=== PATIENT | female | born 1995 | race African-American/Black ===

== ENCOUNTER → 2017-10-29 16:12 | Outpatient (CLI) | payer BC, SELFPAY | PROVIDERS: Family Provider Pediatrics; PCP Pediatrics; Visit Provider Otolaryngology | DX: J02.9 Acute pharyngitis, unspecified (principal) | CPT/HCPCS: 87070; 87077; 87186 ==

== ENCOUNTER → 2018-06-19 16:00 | Outpatient (CLI) | payer BC, SELFPAY | PROVIDERS: Family Provider Pediatrics; PCP Pediatrics; Referring Provider Otolaryngology; Visit Provider Otolaryngology | DX: J02.9 Acute pharyngitis, unspecified (principal) | CPT/HCPCS: 87070; 87077; 87186 ==

== ENCOUNTER 2018-07-06 20:16 | Emergency (ER) | payer BC, SELFPAY ==
[2018-07-06 20:17] VITALS: BP 137/73; PULSE 75; RESP 18; TEMP 36.6; O2SAT 100; BMI 20.7
[2018-07-06 20:30] VITALS: BP 134/74; PULSE 71; RESP 12; O2SAT 100
--- NOTE | 2018-07-06 20:30 | RAD_ITS ---
STUDY: X-RAY CHEST REASON FOR EXAM: Female, 22 years old. Chest pain TECHNIQUE: Frontal and lateral views of the chest were obtained. COMPARISON: August 17, 2017 FINDINGS: The lungs are adequately aerated. There are no focal airspace opacities. There is no demonstrated pleural abnormality. The cardiac silhouette is normal in size. The mediastinum and hilar regions are unremarkable. Normal visualized pulmonary arteries. Normal visualized aortic arch and descending thoracic aorta. There is dextroscoliosis of the mid thoracic spine. The visualized ribs, clavicles, and shoulders are unremarkable. There is no demonstrated abnormality of the visualized upper abdomen. RAD/Chest PA and Lateral IMPRESSION: No acute cardiopulmonary abnormalities. Electronically Signed: Judith Wayne MD at 22:48 EST Tel Direct: [phone], Service support ,
--- NOTE | 2018-07-06 20:30 | EKG12_ITS ---
Test Reason : CP Blood Pressure : / mmHG Vent. Rate : 073 BPM Atrial Rate : 073 BPM P-R Int : 170 ms QRS Dur : 082 ms QT Int : 390 ms P-R-T Axes : 060 071 034 degrees QTc Int : 429 ms Normal sinus rhythm Normal ECG Confirmed by HUONG HOLDER, JAJA ([id number]), editor farm journal MAGED QUEZADA ([id number] on 07/09/2018 2:54:59 PM Referred By: CARLTON Confirmed By:JAJA BORJA MD
--- NOTE | 2018-07-06 20:35 | ED.VISSUMM ---
- ER Visit Summary Date of Service: 07/06/18 Chief Complaint: Chest pain, shortness of breath History of Present Illness: The patient is a 22 F with sudden onset of chest pain shortness of breath possibly 30 minutes prior to arrival. She just finished dinner and sat on the sofa. She denies the pain feeling like prior reflux. Significant other reports pain was somewhat improved after Ativan and she was upset at the time. Past history is significant for cardiac murmur as a child. Physical Examination: Vital signs unremarkable. Patient sitting upright in bed no acute distress. Heart is regular rate and rhythm. Lung sounds are clear. Chest wall is nontender. Abdomen is soft and nontender. Neuro exam is unremarkable. Lower exam examination was no calf tenderness or edema. Test Results: EKG is sinus at [address] change. Two-view chest x-ray per my read is unremarkable. CBC and chemistry studies normal. Troponin negative. D-dimer negative. test negative. Emergency Department Course and Treatment: Patient was given IV fluids, small dose of morphine, and Zofran. On repeat evaluation patient states her pain had completely resolved and is now waxing and waning at a low level. I advised her that at this time I see no acute cardiac or pulmonary cause for her pain. This may be caused by anxiety or stress or even atypical reflux symptoms. She will continue to monitor her symptoms at home and return if symptoms worsen or any other concerns arise. Treatment Plan: [] Disposition: Discharge Impression: Atypical chest pain This note was generated with [employer] dictation software. It may contain incorrect words, spelling, and punctuation that were not noted in review of the chart prior to signing ED Disposition - Plan for ED Patient: Chief Complaint: Chest Pain Referrals: Nevaeh Dyson [NON-STAFF] -
[2018-07-06 20:41] LABS: Absolute Lymphocyte Count 2.61 X10^3/ul (0.83-4.51); Absolute Neutrophil Count 1.4 X10^3/uL (2.0-7.7); Basophil# 0.02 X10^3/uL; Basophil% 0.4 % (0-1); Eosinophil# 0.39 X10^3/uL; Eosinophils% 8.2 % (0-5); Hematocrit 40.2 % (37-47); Hemoglobin 13.4 g/dl (12.0-15.0); Lymphocyte # 2.61 X10^3/ul (4.0); Lymphocyte % 55.1 % (19-41); Mean Corp Hgb Conc 33.3 g/gl (32-36); Mean Corpuscular Hgb 29.5 pg (27.0-32.0); Mean Corpuscular Volume 88.4 fL (81-99); Mean Platelet Vol. 9.3 fl (6.2-12.0); Monocyte# 0.31 X10^3/uL; Monocyte% 6.5 % (0-10); Neutrophil % 29.6 % (47-70); POSITIVE COUNT NO; POSITIVE DIFFERENTIAL NO; POSITIVE MORPHOLOGY NO; Platelet Count 271 K/mm3 (150-450); RBC Distribution Width CV 13.6 % (11.6-14.6); RBC Distribution Width SD 44.1 fl (35.1-43.9); Red Blood Count 4.55 M/mm3 (4.2-5.4); White Blood Count 4.7 K/mm3 (4.4-11.0)
[2018-07-06] MEDS: Ondansetron 4 MG/2 ML Vial IV (20:42)
[2018-07-06] MEDS: 0.9% Normal Saline 1,000 ML 150 ML IV (20:43)
[2018-07-06] MEDS: Morphine 2 MG/ML Syringe IV (20:45)
[2018-07-06 20:50] LABS: Anion Gap 8 (5-15); BUN 15 mg/dL (7-18); BUN/Creat Ratio 14.4 RATIO (10-20); Calcium,Total 9.2 mg/dL (8.5-10.1); Chloride 104 mmol/L (98-107); Creatinine, Serum 1.04 mg/dL (0.55-1.02); EST Glomerular Filtration Rate 69 mL/min (>60); Est Glom Filt Rate - Afr Amer 83 mL/min (>60); Estimated Creatinine Clearance 86.61 ml/min; Glucose 144 mg/dL (74-106); Potassium 3.5 mmol/L (3.5-5.1); Sodium Level 139 mmol/L (136-145)
[2018-07-06 21:06] LABS: D-Dimer Quantitative (DVT/PE) < 0.27 FEU/ug/m (0.27-0.49)
[2018-07-06 21:12] LABS: Pregnancy, Serum, hCG Quali. NEGATIVE Negative (0-9 Nonpreg)
[2018-07-06 21:34] VITALS: BP 123/76; PULSE 69; RESP 17; O2SAT 99
--- NOTE | 2018-07-06 21:48 | ED.DEP ---
ED Disposition - Plan for ED Patient: Disposition: Home or Assisted Living Chief Complaint: Chest Pain Instructions: ED Chest Pain Atypical Unkn Cause Referrals: Nevaeh Dyson [NON-STAFF] - 3-5 Days if not improving
[2018-07-06 21:54] VITALS: BP 123/76; PULSE 72; RESP 19; O2SAT 97
--- OUTSIDE RECORDS SUMMARY | 2018-08-30 21:49 | XMS RPT_ITS ---
:1995 Author Organization OHIP Care Team Providers Name Role Phone EDMOND DYSON Primary Care Unavailable Jay More Attending Unavailable EDMOND DYSON Primary Care Unavailable Karen Araiza Attending Unavailable KARIS, EDMOND Primary Care Unavailable Christopher Johnson Attending Unavailable NorbertannFeliz Attending Unavailable KARIS, EDMOND Primary Care Unavailable Norbertann, Feliz Referring Unavailable Shane Paeze Attending Unavailable Norbertann, Feliz Referring Unavailable KARIS, EDMOND Primary Care Unavailable Judith See Attending Unavailable Ganta, Jaison Primary Care Unavailable AMPARO POND (BROACHING MACHINE SET UP OPERATOR) Attending Unavailable AMPARO POND (BROACHING MACHINE SET UP OPERATOR) Referring Unavailable BOLOGNA FRANKLYN A Admitting Unavailable BOLOGNA, FRANKLYN A Attending Unavailable AMPARO POND (BROACHING MACHINE SET UP OPERATOR) Attending Unavailable CARABALLO, BASILIA VARUN Referring Unavailable ALYSSA WEEMS (CHERELLE) Attending Unavailable CARABALLO, BASILIA VARUN Referring Unavailable ELISEO PEÑA (BROACHING MACHINE SET UP OPERATOR) Attending Unavailable ELISEO PEÑA (BROACHING MACHINE SET UP OPERATOR) Attending Unavailable MISTY DAILEY () Attending Unavailable MISTY DAILEY () Referring Unavailable MISTY DAILEY () Referring Unavailable MISTY DAILEY () Referring Unavailable PODLOGVIDHI HUITRON ([facility]) Referring Unavailable LEVYLACEY ([facility]) Attending Unavailable LEVYLACEY BORREGO ([facility]) Attending Unavailable LEVYLACEY BORREGO ([facility]) Referring Unavailable ELISEO PEÑA ([facility]) Attending Unavailable CARABALLO, BASILIA VARUN Referring Unavailable NASRIN SEE ([employer] PE TEACHER) Referring Unavailable LISSY EUGENE ([facility]) Attending Unavailable PODLOGARVIDHI ([facility]) Attending Unavailable GANTA, JAISON Attending Unavailable TRINY LINCOLN ([facility]) Attending Unavailable Vicky, Camila D Attending Unavailable Vicky, Camila D Admitting Unavailable Caraballo, Basilia Primary Care Unavailable Vicky, Camila D Admitting Unavailable Odessa, Camila D Attending Unavailable Caraballo, Basilia Primary Care Unavailable Odessa, Camila D Admitting Unavailable [place], Camila D Attending Unavailable Caraballo, Basilia Primary Care Unavailable Odessa, Camila D Attending Unavailable Caraballo, Basilia Primary Care Unavailable Odessa, Camila D Admitting Unavailable IMCA Primary Care Unavailable HERBIE MAI Referring Unavailable AMPARO OPND Attending Unavailable IMCA Referring Unavailable IMCA Primary Care Unavailable ALYSSA WEEMS Attending Unavailable IMCA Referring Unavailable IMCA Primary Care Unavailable AMPARO POND Attending Unavailable IMCA Primary Care Unavailable FRANKLYN ARAGON Attending Unavailable FRANKLYN ARAGON Admitting Unavailable IMCA Primary Care Unavailable AMPARO POND Attending Unavailable AMPARO POND Referring Unavailable PROBLEMS PROBLEMS DATE TYPE CONDITION / CODE ATTENDING STATUS SOURCE 05/16/2018 Active Unspecified injury NA Active [facility] of right wrist, Clinic Main hand and [place] finger(s), initial Repository encounter / S69.91XA(ICD-10) 11/29/2017 Active Right lower NA Active [facility] quadrant pain / Clinic Main R10.31(ICD-10) [place] Rep[facility] 11/28/2017 Active Generalized NA Active [facility] abdominal pain / [facility] Main R10.84(ICD-10) [place] Rep[facility] 07/02/2017 Active Nocturia / BERNHART, Active [facility] R35.1(ICD-10) RIVA (BROACHING MACHINE SET UP OPERATOR) Clinic Other [place] Repository 07/02/2017 Active Frequency of BERNHART, Active [facility] micturition / RIVA (BROACHING MACHINE SET UP OPERATOR) Clinic Other R35.0(ICD-10) [place] Rep[facility] 07/02/2017 Active Overactive bladder BERNHART, Active [facility] / N32.81(ICD-10) RIVA (BROACHING MACHINE SET UP OPERATOR) Clinic Other [place] Repository 07/02/2017 Admitting Unknown / BERNHART, Active [facility] diagnosis UNK(Unknown) [facility] Repository 09/29/2017 Active Unknown / NA Active [facility] UNK(Unknown) Clinic Main [place] Repository 09/27/2017 Active Urge incontinence [facility], Active [facility] / N39.41(ICD-10) FRANKLYN A Clinic Other [place] Repository 09/27/2017 Active Urgency of [facility], Active [facility] urination / FRANKLYN A Clinic Other R39.15(ICD-10) [place] Repository 12/12/2017 Unknown M54.2 - Christophre Johnson Active [facility] M54.2(ICD-10) Hospital Repository PROCEDURES PROCEDURES No Procedure Records FoundRESULTS RESULTS 12 LEAD ELECTROCARDIOGRAM Observed: 07/09/2018 Status: F Source: [place] 2:55 PM [facility] REPOSITORY [facility] Cardiovascular Services [address] [place] [address] 12 Lead EKG 07/06/182022 MR#: [id number] Acct: [id number] Name: FABI RAMIREZ Rep #: [id number] : 1995 22 From: Parker Medeiros MD Attending Dr: Status: DEP ER Ordering Dr: Judith See MD Date: 07/06/18 Location: ED Sex: F AA Admitted: Test Reason : CP Blood Pressure : / mmHG Vent. Rate : 073 BPM Atrial Rate : 073 BPM P-R Int : 170 ms QRS Dur : 082 ms QT Int : 390 ms P-R-T Axes : 060 071 034 degrees QTc Int : 429 ms Normal sinus rhythm Normal ECG Confirmed by HUONG HOLDER, PARKER ([id number]), newspaper editor managing MAGED QUEZADA ([id number]) on 07/09/2018 2:54:59 PM Referred By: Confirmed By:PARKER MEDEIROS MD 07/09/18 1455 Date Parker Medeiros MD CC: Jaison Montez MD; Judith See MD Signed EMERGENCY DEPARTMENT Observed: 07/07/2018 Status: F Source: [place] SUMMARY 12:34 AM [facility] REPOSITORY [facility] Medical Records Department [address] [place] [address] Emergency Department Summary 07/06/182034 MR#: [id number] Acct: [id number] Name: FABI RAMIREZ Rep #: [id number] : 1995 22 From: Judith See MD PCP: Jaison Montez MD Status: DEP ER - ER Visit Summary Date of Service: 07/06/18 Chief Complaint: Chest pain, shortness of breath History of Present Illness: The patient is a 22 F with sudden onset of chest pain shortness of breath possibly 30 minutes prior to arrival. She just finished dinner and sat on the sofa. She denies the pain feeling like prior reflux. Significant other reports pain was somewhat improved after Ativan and she was upset at the time. Past history is significant for cardiac murmur as a child. Physical Examination: Vital signs unremarkable. Patient sitting upright in bed no acute distress. Heart is regular rate and rhythm. Lung sounds are clear. Chest wall is nontender. Abdomen is soft and nontender. Neuro exam is unremarkable. Lower exam examination was no calf tenderness or edema. Test Results: EKG is sinus at [address] change. Two-view chest x-ray per my read is unremarkable. CBC and chemistry studies normal. Troponin negative. D-dimer negative. test negative. Emergency Department Course and Treatment: Patient was given IV fluids, small dose of morphine, and Zofran. On repeat evaluation patient states her pain had completely resolved and is now waxing and waning at a low level. I advised her that at this time I see no acute cardiac or pulmonary cause for her pain. This may be caused by anxiety or stress or even atypical reflux symptoms. She will continue to monitor her symptoms at home and return if symptoms worsen or any other concerns arise. Treatment Plan: [] Disposition: Discharge Impression: Atypical chest pain This note was generated with [employer] dictation software. It may contain incorrect words, spelling, and punctuation that were not noted in review of the chart prior to signing ED Disposition - Plan for ED Patient: Chief Complaint: Chest Pain Referrals: Edmond Dyson [NON-STAFF] - What to do if you have Problems For any increased pain, shortness of breath, bleeding, nausea or vomiting, chest pain, or any unexpected problems, contact your Primary Care Provider. Call [facility] ([phone]) or report to the closest Emergency Room. Call 911 if necessary. 07/07/18 0034 <Electronically signed by Judith See MD> Date Judith See MD Cosigner Signature (If Indicated): Date CC: Jaison Montze MD DISCHARGE INSTRUCTION Observed: 07/06/2018 Status: F Source: [place] 9:49 PM [facility] REPOSITORY [facility] Medical Records Department [address] [place] [address] Discharge Instruction 07/06/182147 MR#: [id number] Acct: [id number] Name: FABI RAMIREZ Rep #: [id number] : 1995 22 From: Judith See MD PCP: Jaison Montez MD Status: REG ER ED Disposition - Plan for ED Patient: Disposition: Home or Assisted Living Chief Complaint: Chest Pain Instructions: ED Chest Pain Atypical Unkn Cause Referrals: Edmond Dyson [NON-STAFF] - 3-5 Days if not improving What to do if you have Problems For any increased pain, shortness of breath, bleeding, nausea or vomiting, chest pain, or any unexpected problems, contact your Primary Care Provider. Call [facility] ([phone]) or report to the closest Emergency Room. Call 911 if necessary. 07/06/182148 <Electronically signed by Judith See MD> Date Judith See MD Cosigner Signature (If Indicated): Date CC: Jaison Montez MD D-DIMER QUANTITATIVE Collected: 07/06/2018 Status: F Source: [place]IRGIN (DVT/PE) 8:45 PM [facility] REPOSITORY Order Comment: REDRAW. PREVIOUS SPECIMEN REJECTED DUE TO Quanity Not Sufficient/TUBE ONLY HALF FULL. 07/06/182042 [facility]. TYPE CODE TESTS RESULT OUT OF RANGE REFERENCE UNITS LAB L300.8000 0.27-0.49 FEU/ug/m Low D-DIMER < 0.27 QUANT Result Comment: NORMAL D-Dimer level (<0.50) indicates no DVT or PE. Performed By: #### L300.8000 #### [facility] [address] [place], [address] CHEST PA AND LATERAL Observed: 07/06/2018 Status: F Source: [facility] 8[facility]32 PM [facility] Imaging Services [address] [place] [address] Chest PA and Lateral MR#: [id number] Acct: [id number] Name: FABI RAMIREZ Rep #: [id number] : 1995 F 22 From: Judith Wayne MD PCP: Jaison Montez MD Status: DEP ER Study: Chest PA and Lateral Date of Exam: 07/06/18 Exam# [id number] Ordering Dr: Judith See MD STUDY: X-RAY CHEST REASON FOR EXAM: Female, 22 years old. Chest pain TECHNIQUE: Frontal and lateral views of the chest were obtained. COMPARISON: August 17, 2017 FINDINGS: The lungs are adequately aerated. There are no focal airspace opacities. There is no demonstrated pleural abnormality. The cardiac silhouette is normal in size. The mediastinum and hilar regions are unremarkable. Normal visualized pulmonary arteries. Normal visualized aortic arch and descending thoracic aorta. There is dextroscoliosis of the mid thoracic spine. The visualized ribs, clavicles, and shoulders are unremarkable. There is no demonstrated abnormality of the visualized upper abdomen. RAD/Chest PA and Lateral IMPRESSION: No acute cardiopulmonary abnormalities. Electronically Signed: Judith Wayne MD at 22:48 EST Tel Direct: [phone], Service support , CC: Jaison Montez MD; Judith See MD Housekeeping And Laundry Team Leader: Signed CBC W/DIFF, AUTOMATED Collected: 07/06/2018 Status: F Source: [place] 8:25 PM [facility] REPOSITORY TYPE CODE TESTS RESULT OUT OF RANGE REFERENCE UNITS LAB L100.1000 4.4-11.0 K/mm3 Normal WBC 4.7 LAB L100.1200 4.2-5.4 M/mm3 Normal RBC 4.55 LAB L100.1300 12.0-15.0 g/dl Normal HGB 13.4 LAB L100.1400 37-47 % Normal HCT 40.2 LAB L100.1500 81-99 fL Normal MCV 88.4 LAB L100.1600 27.0-32.0 pg Normal MCH 29.5 LAB L100.1700 32-36 g/gl Normal MCHC 33.3 LAB L100.1810 11.6-14.6 % Normal RDW CV 13.6 LAB L100.1820 35.1-43.9 fl High RDW SD 44.1 LAB L100.1900 150-450 K/mm3 Normal PLT 271 LAB L100.2000 6.2-12.0 fl Normal MPV 9.3 LAB L100.2100 47-70 % Low NEUT% 29.6 LAB L100.2200 19-41 % High LY% 55.1 LAB L100.2300 0-10 % Normal MONO% 6.5 LAB L100.2400 0-5 % High EO% 8.2 LAB L100.2500 0-1 % Normal BASO% 0.4 LAB L100.2550 0.0-0.9 % Normal IM GRAN % 0.200 Result Comment: IG% - Immature Granulocytes (promyelocytes, myelocytes and metamyelocytes) > 1% indicates that a LEFT SHIFT is Present. LAB L100.2620 2.0-7.7 X10 3/uL Low Absolute Neut 1.4 LAB L100.2720 0.83-4.51 X10 3/ul Normal Absolute Lymph 2.61 Performed By: #### L100.0100 #### [facility] [address] [place], [place], [address] BASIC METABOLIC Collected: 07/06/2018 Status: F Source: [place] PROFILE (BMP) 8:25 PM [facility] REPOSITORY Order Comment: 'TROP' Serial specimen #1, #2, #3, or #4: 1 TYPE CODE TESTS RESULT OUT OF RANGE REFERENCE UNITS LAB L501.0100 74-106 mg/dL High GLU 144 Result Comment: Fasting Glucose result greater than or equal to 126 mg/dL suggests DIABETES MELLITUS per A.D.A. criteria. Please note revised GLUCOSE reference range effective 2017. LAB L501.1000 7-18 mg/dL Normal BUN 15 LAB L501.1100 0.55-1.02 mg/dL High CREAT,SERUM 1.04 Result Comment: The validity of the calculated GFR AND GFRAA in patients over 70 years has not been determined. Clinical correlation is essential. LAB L501.1110 >60 mL/min Normal EST GFR 69 Result Comment: Non- GFR Calc LAB L501.1115 >60 mL/min Normal EST GFR - AA 83 Result Comment: GFR Calc LAB L501.1255 ml/min Normal Estimated CRCL 86.61 LAB L501.1300 10-20 RATIO Normal BUN/CRE 14.4 LAB L501.2200 8.5-10 mg/dL Normal .1 CA 9.2 LAB L501.5300 136-14 mmol/L Normal 5 NA 139 LAB L501.5600 3.5-5. mmol/L Normal 1 K 3.5 LAB L501.5900 98-107 mmol/L Normal CL 104 LAB L501.6100 21.0-3 mmol/L Normal 2.0 CO2 27.0 LAB L501.6200 5-15 Normal GAP 8 Performed By: #### L500.2500, L501.4010 #### [facility] [address] [place], [place], [address] TROPONIN-I Collected: 07/06/2018 Status: F Source: [place] 8:25 PM [facility] REPOSITORY Order Comment: 'TROP' Serial specimen #1, #2, #3, or #4: 1 TYPE CODE TESTS RESULT OUT OF RANGE REFERENCE UNITS LAB L501.4010 <0.045 ng/mL Normal < 0.015 TROPONIN-I Result Comment: TROPONIN-I EXPECTED VALUES <0.045 Negative 0.045 - 0.590 Consistent with Cardiac Damage > OR = 0.600 Critical Value Not every elevated troponin is indicative of KS. These values should be used with clinical judgement in examining the patient's clinical picture for diagnosis. To establish a diagnosis of KS versus myocardial injury, there must be a demonstrated rise and/or fall in the troponin values, in addition to ischemic symptoms, EKG changes, new regional wall motion abnormality, and/or angiographical evidence. PLEASE NOTE: REFERENCE RANGES EDITED 17 Performed By: #### L500.2500, L501.4010 #### [facility] [address] [place], [address] ,SERUM,HCG QUALI. Collected: Status: F Source: V[place]GIN 07/06/2018 8:25 PM [facility] REPOSITORY TYPE CODE TESTS RESULT OUT OF REFERENCE UNITS RANGE LAB L700.7000 0-9 Nonpreg Negative Normal HCGSQUAL NEGATIVE LAB L700.6700 =>Qualitative mIU/mL Normal HCG Qual < 1 triggr Performed By: #### L700.6800 #### [facility] [address] [place], [address] Observed: 06/19/2018 Status: F Source: [place] CULTURE, THROAT 9:00 AM [facility] REPOSITORY Culture, Throat ORGANISM 1: Staphylococcus aureus Amount Growth 1+ Staphylococcus aureus: REACTION Benzylpenicillin NF <=0.03 R Cefoxitin *NF - Clindamycin $$ <=0.25 S Inducable Clindamycin Resistan - Erythromycin $ <=0.25 S Gentamicin $ <=0.5 S Levofloxacin $ <=0.12 S Linezolid $$$$ 2 S Moxifloxicin *NF <=0.25 S Oxacillin NF <=0.25 S Tigecycline $$$$ <=0.12 S Rifampin $$ <=0.5 S Tetracycline NF <=1 S Trimethoprim/Sulfametho $ <=10 S Vancomycin $ 1 S (NF) indicates non-formulary drug at [facility]. Approval by Infectious Disease Specialist required before non-formulary drugs may be ordered and/or dispensed. * CLSI guidelines does not recommend testing of cephalosporins. This interpretation is deduced from Beta-lactam/penicillin results. Performed By: #### M100.1000 #### [facility] [address] [place], [address] GROUP A STREP BY Collected: 06/17/2018 Status: F Source: [facility] 12:01 PM [facility] [place] REPOSITORY TYPE CODE TESTS RESULT OUT OF REFERENCE UNITS RANGE LAB GASSRC Throat Swab GAS Specimen Source LAB PCRGAS Negative for Group A Strep Group A PCR Streptococcus by PCR. Result Comment: This test was developed and its performance characteristics determined by [facility] ([facility]). It has not been cleared or approved by the FDA. [facility] is regulated under CLIA as qualified to perform high-complexity testing. This test is used for clinical purposes. It should not be regarded as inv estigational or for research. Performed By: #### GASPCR #### [facility] [address] [place], [place] [address] PROGRESS Observed: 06/17/2018 Status: COMPLETED Source: [place] 10:52 AM [facility] REPOSITORY HNO ID: [id number] Author: Triny Lincoln Service: (none) Author Type: Nurse Practitioner Type: Progress Notes Filed: 06/17/2018 11:26 AM Note Text: Telemedicine Visit - Distance Health Virtual Visit Note Patient seen on [employer] Online platform. Location of patient: [place] History of Present Illness Fabi Ramirez is a 22 year old year old female who presents for the past 2 day(s) with symptoms that are:constant C/o of swollen tonsil x 2 days Reports last week, her throat has a burning sensation x a few seconds any time she would eat, swallow or drink something cold. That subsided and then right tonsils became enlarged. Has white spots on left tonsil Denies sore throat or fevers Has ?PND and congestion Reports similar illness in October 2017. Saw local ENT. Tested for strep and mono, unknown results. Given ABX for relief. Questioning if tonsil has to be removed? No recent ABX use Symptoms include: Positive for Nasal congestion, PND and Fatigue, Negative for Fever, Chills/Sweats, Cough, Hemoptysis, SOB, RAHMAN, Wheezing, Rhinorrhea, Face pain/pressure, Headache, Teeth pain , Otalgia, Sore throat, Fatigue, Nausea, Emesis and Diarrhea Oral intake: eating and drinking Tobacco use: No Sick contacts: No Recent travel: No OTC meds/remedies that patient has tried: None PAST MEDICAL HISTORY Diagnosis Date - Asthma - CAH (congenital adrenal hyperplasia) - Frequency of micturition - Heart stopped beating (HCC) 2005 post surgical 5-10 minutes - Incontinence of urine congenital - Insomnia - Migraine headache - Nocturia - Nocturnal enuresis - OAB (overactive bladder) - Urge incontinence - UTI (urinary tract infection) PAST SURGICAL HISTORY Procedure Laterality Date - NERVE STIMULATOR,2 2005 bladder stimulator - NERVE STIMULATOR,2 2009 revised bladder stim - NERVE STIMULATOR,07/2014 - NERVE STIMULATOR,12/2014 - REVISE/REMOVE NEUROELECTRODE revision - S NERVE STIMULATOR,209/27/2017 lower back- [facility] FAMILY HISTORY Problem Relation Age of Onset - Adopted: Yes - other (adopted) Other Social History Marital status: Spouse name: Years of education: Number of children: 0 Occupational History 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 citalopram hydrobromide (CELEXA) 10 mg tablet take one tablet daily please schedule an appointment for further refills levonorgestrel (MIRENA INTRAUTERINE) by INTRAUTERINE route. ALBUTEROL SULFATE (VENTOLIN INHALATION) Inhale 2 Puffs as instructed as needed. Rescue inhaler No current facility-administered medications for this visit. ALLERGIES Allergen Reactions - Advil [Ibuprofen] Swelling - Iodine Itching Video Exam (Examination performed via Video enabled technology) General appearance: Alert, oriented, pleasant, in NAD :Yes Ill appearing :No Lethargic appearing :No Ears:Tragus / outer ear tenderness by self palpation :No Oropharynx: mild erythema. Tonsillar hypertrophy, asymmetric: R 2+, L 1+. Mild exudate present on left tonsil. Frontal sinus tenderness by self palpation;No Maxillary sinus tenderness by self palpation :No Tender cervical adenopathy by self palpation :Yes Respiratory distress :No Coughing noted :No Audible wheezing noted :No ASSESSMENT/PLAN: 1. Enlarged tonsils - ICD9: 474.11, ICD10: J35.1 Discussed etiology and rationale for treatment. Viral vs strep. To f/u at [facility] for swabbing. Clinic notified. Will f/u with results and treat accordingly. - RAPID STREP TEST B/O-pending - GROUP A STREPTOCOCCUS BY PCR- To be sent if rapid strep is negative -Increase fluids, get extra rest and take analgesia as needed. Salt water gargles and throat lozenges for additional relief. - If symptoms persist or worsen, beneficial to f/u with ENT for further evaluation. - Red flags discussed for need for in person care - All questions answered Triny Lincoln APRN.CNP If you let us know who your primary care provider is, we will send them a notification of today?s visit through our electronic medical records system. Since not all providers have access to our notifications, we strongly encourage you to share the following record of today?s visit with your primary care provider at your next visit. This will help in providing you the best care. PROGRESS Observed: 06/11/2018 Status: COMPLETED Source: [place] 9:24 AM [facility] REPOSITORY HNO ID: [id number] Author: Jaison Montez Service: (none) Author Type: Physician Type: Progress Notes Filed: 06/11/2018 5:44 PM Note Text: Reason for Visit Patient presents with: Establish Care: establish care Fabi Ramirez is a 22 year old female who presents here today for CPE. Health Maintenance HPV VACCINE(1 - Female 3-dose series) ANNUAL PCP TEAM CHRONIC DISEASE VISIT ONE PNEUMOVAX PRIOR TO AGE 63 HPI Patient is from [place]- she grew up there and moved here 3 Years ago. Right now she is working at [employer]. Did not go to the [place] [employer]. Diet- she is eating healthy, her weight is pretty good. Sleep- she usually has insomnia, the past couple days she has gotten 8 hours of sleep. Stress- she is not as stressed as she was in the past. Exercise- occasionally. She has no children. Uses celexa for both anxiety and depression- works well. No sexual side effects. She has asthma, uses the ventolin, every night, if she does not use it she has wheezing every night. Never used medication like advair etc. She has a bladder pacemaker- had incontinence and an over active bladder. At the age of 10.....she used to pee all the time, after putting the pacemaker she did better, usually lasts around 5/6 years and battery needs replaced. No problem-specific Assessment AND Plan notes found for this encounter. PAST MEDICAL HISTORY Diagnosis Date - Asthma - CAH (congenital adrenal hyperplasia) - Frequency of micturition - Heart stopped beating (HCC) 2005 post surgical 5-10 minutes - Incontinence of urine congenital - Insomnia - Migraine headache - Nocturia - Nocturnal enuresis - OAB (overactive bladder) - Urge incontinence - UTI (urinary tract infection) PAST SURGICAL HISTORY Procedure Laterality Date - NERVE STIMULATOR,2 2005 bladder stimulator - NERVE STIMULATOR,2 2009 revised bladder stim - NERVE STIMULATOR,07/2014 - NERVE STIMULATOR,0003 12/2014 - REVISE/REMOVE NEUROELECTRODE revision - S NERVE STIMULATOR,0003 09/27/2017 lower back- [facility] FAMILY HISTORY Problem Relation Age of Onset - Adopted: Yes - other (adopted) Other Social History Substance Use Topics - Smoking status: Never Smoker - Smokeless tobacco: Never Used - Alcohol use No Past medical history, appointments, medications, allergies reviewed. Pertinent Lab/Diagnostic Studies are reviewed and discussed today Current Outpatient Prescriptions: - citalopram hydrobromide (CELEXA) 10 mg tablet - levonorgestrel (MIRENA INTRAUTERINE) - ALBUTEROL SULFATE (VENTOLIN INHALATION) Review of Systems CONSTITUTIONAL: No fevers, chills, nightsweats, unintended weight loss HEENT: Denies frequent or severe heaches, nasal congestion/sinus symptoms, problematic allergy problems. EYES: No diplopia or blurry vision. CARDIOVASCULAR: No chest pain, dyspnea, palpitations, orthopnea, PND, ankle edema. PULM: No dyspnea, unexplained cough. GI: No dysphagia/odynophagia, problematic reflux, constipation, diarrhea, changes in stool habits, hematochezia, melena. : No new urinary complaints, including dysuria, gross hematuria or pyuria. NEURO: No new balance problems, peripheral weakness/paresthesias or numbness of concern. MUSC-SKEL: No new joint pain, swelling, or erythema. PSY: See hpi INTEGUMENTARY: No new skin changes (rash, new or changing mole, new growth) Physical Exam BP 128/64 (BP Site: Left Arm, BP Position: Sitting, BP Cuff Size: Regular Adult) Pulse 74 Resp 12 Ht 177.8 cm (5' 10) Wt 66.2 kg (146 lb) SpO2 95% BMI 20.95 kg/m? General appearance: Well appearing, alert, in no acute distress, well-hydrated, well nourished. Skin: Skin color, texture, turgor normal, no suspicious rashes or lesions Head: Normocephalic, no masses, lesions, tenderness or abnormalities Eyes: Anicteric sclera. Pupils are equally round and reactive to light. Extraocular movements are intact. Ears: External ears normal, canals clear Nose/Sinuses: Nares normal, septum midline, mucosa normal, no drainage or sinus tenderness Oropharynx: Lips, mucosa, and tongue normal, teeth and gums normal, oropharynx normal Neck: Supple, no adenopathy; thyroid symmetric, normal size, no bruits Back: Normal exam Lungs: Lungs clear to auscultation. No wheezing, rhonchi, rales Heart: RRR without murmur, gallop, or rubs. No ectopy Abdomen: Normal abdominal exam, Abdomen soft, non-tender. Bowel sounds normal. No masses, organomegaly Extremities: No deformities, edema, skin discoloration, clubbing or cyanosis. Good capillary refill. Musculoskeletal: No joint swelling, deformity, or tenderness Peripheral pulses: Normal Neuro: Gait normal. Reflexes normal and symmetric. Sensation grossly intact. ASSESSMENT/PLAN: 1. Annual physical exam - ICD9: V70.0, ICD10: Z00.00 (primary diagnosis) - Encouraged monthly Breast Self Exam - Follow up for annual exam in one year. 2. Anxiety and depression - ICD9: 300.00, 311, ICD10: F41.9, F32.9 Cont the celexa she has been on 3. Mild persistent asthma without complication - ICD9: 493.90, ICD10: J45.30 Started her on qvar. Will follow up in 4 weeks - Avoidance of triggers recommended JAISON MONTEZ MD PROGRESS Observed: 06/11/2018 Status: COMPLETED Source: [place] 8:53 AM [facility] REPOSITORY HNO ID: [id number] Author: Jaison Montez Service: (none) Author Type: Physician Type: Progress Notes Filed: 06/11/2018 5:44 PM Note Text: . CNOV Observed: 06/11/2018 Status: COMPLETED Source: [place] 8:20 AM [facility] REPOSITORY Office Visit ([facility]) FABI RAMIREZ ([id number]) 1995 F Date Time Provider Department 06/11/18 8:20 AM JAISON MONTEZ During your visit today, we recorded the following information about you: Pulse Respiration Blood pressure Weight 74/minute 12/minute 128/64 66.2 kg Height 1.778 m JAISON MONTEZ MD 06/11/2018 5:44 PM Signed . JAISON MONTEZ MD 06/11/2018 5:44 PM Signed Reason for Visit Patient presents with: Establish Care: establish care Fabi Ramirez is a 22 year old female who presents here today for CPE. Health Maintenance HPV VACCINE(1 - Female 3-dose series) ANNUAL PCP TEAM CHRONIC DISEASE VISIT ONE PNEUMOVAX PRIOR TO AGE 63 HPI Patient is from [place]- she grew up there and moved here 3 Years ago. Right now she is working at [employer]. Did not go to the [place] [employer]. Diet- she is eating healthy, her weight is pretty good. Sleep- she usually has insomnia, the past couple days she has gotten 8 hours of sleep. Stress- she is not as stressed as she was in the past. Exercise- occasionally. She has no children. Uses celexa for both anxiety and depression- works well. No sexual side effects. She has asthma, uses the ventolin, every night, if she does not use it she has wheezing every night. Never used medication like advair etc. She has a bladder pacemaker- had incontinence and an over active bladder. At the age of 10.....she used to pee all the time, after putting the pacemaker she did better, usually lasts around 5/6 years and battery needs replaced. No problem-specific Assessment AND Plan notes found for this encounter. PAST MEDICAL HISTORY Diagnosis Date - Asthma - CAH (congenital adrenal hyperplasia) - Frequency of micturition - Heart stopped beating (HCC) 2005 post surgical 5-10 minutes - Incontinence of urine congenital - Insomnia - Migraine headache - Nocturia - Nocturnal enuresis - OAB (overactive bladder) - Urge incontinence - UTI (urinary tract infection) PAST SURGICAL HISTORY Procedure Laterality Date - NERVE STIMULATOR,2 2005 bladder stimulator - NERVE STIMULATOR,2 2009 revised bladder stim - NERVE STIMULATOR,07/2014 - NERVE STIMULATOR,12/2014 - REVISE/REMOVE NEUROELECTRODE revision - S NERVE STIMULATOR,209/27/2017 lower back- [facility] FAMILY HISTORY Problem Relation Age of Onset - Adopted: Yes - other (adopted) Other Social History Substance Use Topics - Smoking status: Never Smoker - Smokeless tobacco: Never Used - Alcohol use No Past medical history, appointments, medications, allergies reviewed. Pertinent Lab/Diagnostic Studies are reviewed and discussed today Current Outpatient Prescriptions: - citalopram hydrobromide (CELEXA) 10 mg tablet - levonorgestrel (MIRENA INTRAUTERINE) - ALBUTEROL SULFATE (VENTOLIN INHALATION) Review of Systems CONSTITUTIONAL: No fevers, chills, nightsweats, unintended weight loss HEENT: Denies frequent or severe heaches, nasal congestion/sinus symptoms, problematic allergy problems. EYES: No diplopia or blurry vision. CARDIOVASCULAR: No chest pain, dyspnea, palpitations, orthopnea, PND, ankle edema. PULM: No dyspnea, unexplained cough. GI: No dysphagia/odynophagia, problematic reflux, constipation, diarrhea, changes in stool habits, hematochezia, melena. : No new urinary complaints, including dysuria, gross hematuria or pyuria. NEURO: No new balance problems, peripheral weakness/paresthesias or numbness of concern. MUSC-SKEL: No new joint pain, swelling, or erythema. PSY: See hpi INTEGUMENTARY: No new skin changes (rash, new or changing mole, new growth) Physical Exam BP 128/64 (BP Site: Left Arm, BP Position: Sitting, BP Cuff Size: Regular Adult) Pulse 74 Resp 12 Ht 177.8 cm (5' 10) Wt 66.2 kg (146 lb) SpO2 95% BMI 20.95 kg/m? General appearance: Well appearing, alert, in no acute distress, well-hydrated, well nourished. Skin: Skin color, texture, turgor normal, no suspicious rashes or lesions Head: Normocephalic, no masses, lesions, tenderness or abnormalities Eyes: Anicteric sclera. Pupils are equally round and reactive to light. Extraocular movements are intact. Ears: External ears normal, canals clear Nose/Sinuses: Nares normal, septum midline, mucosa normal, no drainage or sinus tenderness Oropharynx: Lips, mucosa, and tongue normal, teeth and gums normal, oropharynx normal Neck: Supple, no adenopathy; thyroid symmetric, normal size, no bruits Back: Normal exam Lungs: Lungs clear to auscultation. No wheezing, rhonchi, rales Heart: RRR without murmur, gallop, or rubs. No ectopy Abdomen: Normal abdominal exam, Abdomen soft, non-tender. Bowel sounds normal. No masses, organomegaly Extremities: No deformities, edema, skin discoloration, clubbing or cyanosis. Good capillary refill. Musculoskeletal: No joint swelling, deformity, or tenderness Peripheral pulses: Normal Neuro: Gait normal. Reflexes normal and symmetric. Sensation grossly intact. ASSESSMENT/PLAN: 1. Annual physical exam - ICD9: V70.0, ICD10: Z00.00 (primary diagnosis) - Encouraged monthly Breast Self Exam - Follow up for annual exam in one year. 2. Anxiety and depression - ICD9: 300.00, 311, ICD10: F41.9, F32.9 Cont the celexa she has been on 3. Mild persistent asthma without complication - ICD9: 493.90, ICD10: J45.30 Started her on qvar. Will follow up in 4 weeks - Avoidance of triggers recommended JAISON MONTEZ MD Referring Provider: SELF [200] Allergies As of Date: 06/11/2018 Noted Allergy Reaction ADVIL (IBUPROFEN) 09/29/2017 7 - Swelling IODINE 06/21/2015 9 - Itching Date Reviewed: 06/11/2018 Reviewed by: Virginia Aguirre LPN - Fully Assessed Reason for Visit: Establish Care [42] Cmt: establish care Primary Visit Diagnosis:Annual physical exam [Z00.00] Other Visit Diagnoses:Anxiety and depression [F41.9, F32.9] Mild persistent asthma without complication [J45.30] Order(s):beclomethasone (QVAR REDIHALER) 40 mcg/actuation inhalerInhale 1 Puff as instructed twice daily.Disp: 1 InhalerRfl: 2 CBC + DIFF [SQCBCDIF] Order #: [id number] FUTURE COMP METABOLIC PANEL [SQCMP] Order #: [id number] FUTURE LIPID PANEL BASIC [SQLIPB] Order #: [id number] FUTURE Prescriptions as of 06/11/2018 Sig: CITALOPRAM 10 MG TABLET take one tablet daily please* MIRENA INTRAUTERINE by INTRAUTERINE route. VENTOLIN INHALATION Inhale 2 Puffs as instructed * BECLOMETHASONE DIPROP 40 MCG/* Inhale 1 Puff as instructed t* Problem List As Of Date 06/11/2018 Noted Resolved Asthma [J45.909] INVALID FOR* 1.1 Migraine without aura, not intractable [346*INVALID FOR* A1.1.2 menstrually-related migraine without aur*INVALID FOR* Adrenal hyperplasia [E27.8] INVALID FOR* Depression with anxiety [F41.8] INVALID FOR* CAH (congenital adrenal hypoplasia) [KAQ5872] INVALID FOR* More... Congenital adrenal cortical hyperplasia (HCC) [*INVALID FOR* OAB (overactive bladder) [N32.81] INVALID FOR* Frequency of micturition [R35.0] INVALID FOR* Nocturnal enuresis [N39.44] INVALID FOR* Nocturia [R35.1] INVALID FOR* Prescriptions ordered this encounter Disp Refills Start End BECLOMETHASONE DIPROP 40 MCG/ACTUATI* 1 In* 2 06/11/2018 Route: INHALATION Sig: Inhale 1 Puff as instructed twice daily. Encounter Status:Closed by JAISON MONTEZ MD on 06/11/18 PROGRESS Observed: 05/28/2018 Status: COMPLETED Source: [place] 9:40 AM [facility] REPOSITORY HNO ID: [id number] Author: Vidhi Trejo) Podlogar Service: (none) Author Type: Nurse Practitioner Type: Progress Notes Filed: 05/30/2018 8:39 AM Note Text: 05/28/2018 No chief complaint on file. SUBJECTIVE: This is a 22 year old that is here today for Above Complaints. Seen in on 05/16/2018 for right wrist pain after fall. Diagnosed with wrist sprain. X-ray showed RESULT: 4 views of the right wrist with AP, lateral, oblique and navicular view show no acute osseous, articular or soft tissue abnormality. ?The radiocarpal and intercarpal articulations are intact. Followed up on 05/17/2018 with Lissy Eugene CNP- see office note. Returns today for follow-up. Pain in a lot better than before, but not completely gone. Pateint has is wearing spica brace. Using tylenol and aleve which help at times. Pain is a throbbing, pressure type pain 5/10 at it's worst. . Denies weakness, swelling, redness, numbness and tingling of hand or wrist. PAST MEDICAL HISTORY Diagnosis Date - Asthma - CAH (congenital adrenal hyperplasia) - Frequency of micturition - Heart stopped beating (HCC) 2005 post surgical 5-10 minutes - Incontinence of urine congenital - Insomnia - Migraine headache - Nocturia - Nocturnal enuresis - OAB (overactive bladder) - Urge incontinence - UTI (urinary tract infection) ALLERGIES Advil [Ibuprofen]; Iodine MEDICATIONS Current Outpatient Prescriptions: levonorgestrel (MIRENA INTRAUTERINE) by INTRAUTERINE route. citalopram hydrobromide (CELEXA) 10 mg tablet take one tablet daily please schedule an appointment for further refills ALBUTEROL SULFATE (VENTOLIN INHALATION) Inhale 2 Puffs as instructed as needed. Rescue inhaler No current facility-administered medications for this visit. Medications and allergies reviewed by this provider. SOCIAL HISTORY Social History Marital status: Spouse name: Years of education: Number of children: 0 Social History Main Topics Smoking status: Never Smoker Smokeless tobacco: Never Used Alcohol use: No Drug use: No Sexual activity: Yes Partners with: Male Other Topics Concern Service No Blood Transfusions No Caffeine Concern No Occupational Exposure No Hobby Hazards No Sleep Concern Yes Comment:Insomnia Stress Concern No Weight Concern No Special Diet No Back Care No Exercise Yes Comment:Running 1x week Bike Helmet No Seat Belt Yes Self-Exams Yes REVIEW OF SYSTEMS All other reviewed and negative other than HPI. OBJECTIVE: BP 100/72 (BP Site: Left Arm, BP Position: Sitting, BP Cuff Size: Regular Adult) Pulse 78 Resp 16 Wt 67.2 kg (148 lb 1.3 oz) BMI 21.25 kg/m? . Vital signs reviewed by this provider. General appearance: Well appearing, alert, in no acute distress, well-hydrated, well-nourished Musculoskeletal: Range of motion normal in right wrist. No joint swelling, deformity, or tenderness of right wrist. Peripheral pulses: Normal, Capillary refill <2secs, strong peripheral pulses of bilateral wrists ASSESSMENT/PLAN: 1. Injury of right wrist, sequela - ICD9: 908.9, ICD10: S69.91XS - improved - may return to work without restrictions on 05/31/2018 - encouraged to remove splint and do gentle stretches- patient reports has been going to physical therapy for other issues and they have been stretching it there - may use ice/heat and aleve for pain - follow-up if pain persists or worsens Vidhi Bernal APRN.CNP Prescription instructions reviewed with patient as applicable. Patient advised if symptoms do not improve or if symptoms worsen sooner, to contact their primary care physician. Potential red flag symptoms discussed with the patient. Reviewed appropriate action plan to take if red flag symptoms occur. Patient agreeable to treatment plan. CNOV Observed: 05/28/2018 Status: COMPLETED Source: [place] 9:40 AM [facility] REPOSITORY [facility] FABI RAM[facility] ([id number]) 1995 F Date Time Provider Department 05/28/18 9:40 AM [facility] BERNAL [facility] During your visit today, we recorded the following information about you: Pulse Respiration Blood pressure Weight 78/minute 16/minute 100/72 67.2 kg Vidhi Bernal APRN.CNP 05/30/2018 8:39 AM Signed 05/28/2018 No chief complaint on file. SUBJECTIVE: This is a 22 year old that is here today for Above Complaints. Seen in on 05/16/2018 for right wrist pain after fall. Diagnosed with wrist sprain. X-ray showed RESULT: 4 views of the right wrist with AP, lateral, oblique and navicular view show no acute osseous, articular or soft tissue abnormality. ?The radiocarpal and intercarpal articulations are intact. Followed up on 05/17/2018 with Lissy Eugene CNP- see office note. Returns today for follow-up. Pain in a lot better than before, but not completely gone. Pateint has is wearing spica brace. Using tylenol and aleve which help at times. Pain is a throbbing, pressure type pain 5/10 at it's worst. . Denies weakness, swelling, redness, numbness and tingling of hand or wrist. PAST MEDICAL HISTORY Diagnosis Date - Asthma - CAH (congenital adrenal hyperplasia) - Frequency of micturition - Heart stopped beating (HCC) 2005 post surgical 5-10 minutes - Incontinence of urine congenital - Insomnia - Migraine headache - Nocturia - Nocturnal enuresis - OAB (overactive bladder) - Urge incontinence - UTI (urinary tract infection) ALLERGIES Advil [Ibuprofen]; Iodine MEDICATIONS Current Outpatient Prescriptions: levonorgestrel (MIRENA INTRAUTERINE) by INTRAUTERINE route. citalopram hydrobromide (CELEXA) 10 mg tablet take one tablet daily please schedule an appointment for further refills ALBUTEROL SULFATE (VENTOLIN INHALATION) Inhale 2 Puffs as instructed as needed. Rescue inhaler No current facility-administered medications for this visit. Medications and allergies reviewed by this provider. SOCIAL HISTORY Social History Marital status: Spouse name: Years of education: Number of children: 0 Social History Main Topics Smoking status: Never Smoker Smokeless tobacco: Never Used Alcohol use: No Drug use: No Sexual activity: Yes Partners with: Male Other Topics Concern Service No Blood Transfusions No Caffeine Concern No Occupational Exposure No Hobby Hazards No Sleep Concern Yes Comment:Insomnia Stress Concern No Weight Concern No Special Diet No Back Care No Exercise Yes Comment:Running 1x week Bike Helmet No Seat Belt Yes Self-Exams Yes REVIEW OF SYSTEMS All other reviewed and negative other than HPI. OBJECTIVE: BP 100/72 (BP Site: Left Arm, BP Position: Sitting, BP Cuff Size: Regular Adult) Pulse 78 Resp 16 Wt 67.2 kg (148 lb 1.3 oz) BMI 21.25 kg/m? . Vital signs reviewed by this provider. General appearance: Well appearing, alert, in no acute distress, well-hydrated, well-nourished Musculoskeletal: Range of motion normal in right wrist. No joint swelling, deformity, or tenderness of right wrist. Peripheral pulses: Normal, Capillary refill <2secs, strong peripheral pulses of bilateral wrists ASSESSMENT/PLAN: 1. Injury of right wrist, sequela - ICD9: 908.9, ICD10: S69.91XS - improved - may return to work without restrictions on 05/31/2018 - encouraged to remove splint and do gentle stretches- patient reports has been going to physical therapy for other issues and they have been stretching it there - may use ice/heat and aleve for pain - follow-up if pain persists or worsens Vidhi Podlogmoni, AUTOMATION OPERATOR.BROACHING MACHINE SET UP OPERATOR Prescription instructions reviewed with patient as applicable. Patient advised if symptoms do not improve or if symptoms worsen sooner, to contact their primary care physician. Potential red flag symptoms discussed with the patient. Reviewed appropriate action plan to take if red flag symptoms occur. Patient agreeable to treatment plan. Vidhi Sofialogmoni, SEN 05/28/2018 10:06 AM Addendum Continue to use heat or ice along with tylenol or aleve for pain. May leave splint off and do gentle excercises Referring Provider: SELF [200] Allergies As of Date: 05/28/2018 Noted Allergy Reaction ADVIL (IBUPROFEN) 09/29/2017 7 - Swelling IODINE 06/21/2015 9 - Itching Date Reviewed: 05/28/2018 Reviewed by: Lisa Sterling (Rebecca) REBECCA Mckoy - Fully Assessed Reason for Visit: Trauma [112] Cmt: pt states rt wrist sprain , happened on and been off work since then. needs rechecked to return to work Primary Visit Diagnosis:Injury of right wrist, sequela [S69.91XS] Prescriptions as of 05/28/2018 Sig: MIRENA INTRAUTERINE by INTRAUTERINE route. X CITALOPRAM 10 MG TABLET take one tablet daily please* VENTOLIN INHALATION Inhale 2 Puffs as instructed * Problem List As Of Date 05/28/2018 Noted Resolved Asthma [J45.909] INVALID FOR* 1.1 Migraine without aura, not intractable [346*INVALID FOR* A1.1.2 menstrually-related migraine without aur*INVALID FOR* Adrenal hyperplasia [E27.8] INVALID FOR* Depression with anxiety [F41.8] INVALID FOR* CAH (congenital adrenal hypoplasia) [[id number]] INVALID FOR* More... Congenital adrenal cortical hyperplasia (HCC) [*INVALID FOR* OAB (overactive bladder) [N32.81] INVALID FOR* Frequency of micturition [R35.0] INVALID FOR* Nocturnal enuresis [N39.44] INVALID FOR* Nocturia [R35.1] INVALID FOR* Other instructions from your clinician: Continue to use heat or ice along with tylenol or aleve for pain. May leave splint off and do gentle excercises Follow-up and Disposition History Recorded Letter Text [facility] Medicine [facility] [place], [place] [address] To whom it may concern: Fabi Ramirez may return to work on 05/31/2018 without restrictions. Sincerely, Vidhi Podlogmoni Encounter Status:Closed by PODLOGARVIDHI CNP on 05/30/18 PROGRESS Observed: 05/17/2018 Status: COMPLETED Source: [place] 3:07 PM [facility] REPOSITORY HNO ID: [id number] Author: Lissy Trejo) Bladimir Service: (none) Author Type: Nurse Practitioner Type: Progress Notes Filed: 05/17/2018 3:30 PM Note Text: HPI/CC: Fabi Ramirez is a 22 year old female who presents for Wrist Pain (R wrist pain started yesterday after falling). Was seen UC yesterday. Xray was negative for fracture. Was placed in a spica brace. Pain is sharp 10/10. Taking acetaminophen every 6 hours. Denies weakness, new numbness or tingling. ROS as above, otherwise non-contributory. Reviewed PMHx, PSHx, social Hx, medications and allergies. PHYSICAL EXAMINATION: BP 110/72 Pulse 80 Resp 16 Wt 69.4 kg (153 lb) BMI 21.95 kg/m? General appearance: Well appearing, alert, in no acute distress, well-hydrated, well nourished. Musculoskeletal: Positive findings: joint location: on right wrist pain, swelling, painful movement and injury Peripheral pulses: Normal ASSESSMENT/PLAN: 1. Injury of right wrist, sequela - ICD9: 908.9, ICD10: S69.91XS - continue current treatment - completed FMLA paperwork. Lissy Eugene APRN.KOLE CNOV Observed: 05/17/2018 Status: COMPLETED Source: [place] 3:00 PM [facility] REPOSITORY Office Visit ([facility]) FABI RAMIREZ ([id number]) 1995 F Date Time Provider Department 05/17/18 3:00 PM LISSY EUGENE) [facility] During your visit today, we recorded the following information about you: Pulse Respiration Blood pressure Weight 80/minute 16/minute 110/72 69.4 kg Lissy Eugene APRN.CNP 05/17/2018 3:30 PM Signed HPI/CC: Fabi Ramirez is a 22 year old female who presents for Wrist Pain (R wrist pain started yesterday after falling). Was seen UC yesterday. Xray was negative for fracture. Was placed in a spica brace. Pain is sharp 10/10. Taking acetaminophen every 6 hours. Denies weakness, new numbness or tingling. ROS as above, otherwise non-contributory. Reviewed PMHx, PSHx, social Hx, medications and allergies. PHYSICAL EXAMINATION: BP 110/72 Pulse 80 Resp 16 Wt 69.4 kg (153 lb) BMI 21.95 kg/m? General appearance: Well appearing, alert, in no acute distress, well-hydrated, well nourished. Musculoskeletal: Positive findings: joint location: on right wrist pain, swelling, painful movement and injury Peripheral pulses: Normal ASSESSMENT/PLAN: 1. Injury of right wrist, sequela - ICD9: 908.9, ICD10: S69.91XS - continue current treatment - completed FMLA paperwork. Lissy Eugene APRN.KOLE Referring Provider: SELF [200] Allergies As of Date: 05/17/2018 Noted Allergy Reaction ADVIL (IBUPROFEN) 09/29/2017 7 - Swelling IODINE 06/21/2015 9 - Itching Date Reviewed: 05/17/2018 Reviewed by: Lissy Eugene - Fully Assessed Reason for Visit: Wrist Pain [1580] Cmt: R wrist pain started yesterday after falling Primary Visit Diagnosis:Injury of right wrist, sequela [S69.91XS] Prescriptions as of 05/17/2018 Sig: MIRENA INTRAUTERINE by INTRAUTERINE route. CITALOPRAM 10 MG TABLET take one tablet daily please* VENTOLIN INHALATION Inhale 2 Puffs as instructed * Problem List As Of Date 05/17/2018 Noted Resolved Asthma [J45.909] INVALID FOR* 1.1 Migraine without aura, not intractable [346*INVALID FOR* A1.1.2 menstrually-related migraine without aur*INVALID FOR* Adrenal hyperplasia [E27.8] INVALID FOR* Depression with anxiety [F41.8] INVALID FOR* CAH (congenital adrenal hypoplasia) [[id number]] INVALID FOR* More... Congenital adrenal cortical hyperplasia (HCC) [*INVALID FOR* OAB (overactive bladder) [N32.81] INVALID FOR* Frequency of micturition [R35.0] INVALID FOR* Nocturnal enuresis [N39.44] INVALID FOR* Nocturia [R35.1] INVALID FOR* Encounter Status:Closed by LISSY EUGENE CNP on 05/17/18 PROGRESS Observed: 05/16/2018 Status: COMPLETED Source: [place] 2:43 PM [facility] REPOSITORY HNO ID: [id number] Author: Nasrin Ribera (Thu) Elvin Service: (none) Author Type: Nurse Practitioner Type: Progress Notes Filed: 05/16/2018 2:46 PM Note Text: Subjective HPI Patient presents with: Pain: Wrist R fell this am with arms extended out. States 10/10 on pain scale, sharp to throbbing, constant Analgesics OTC with minimal relief. ROS All other reviewed and negative other than HPI. PAST MEDICAL HISTORY Diagnosis Date - Asthma - CAH (congenital adrenal hyperplasia) - Frequency of micturition - Heart stopped beating (HCC) 2005 post surgical 5-10 minutes - Incontinence of urine congenital - Insomnia - Migraine headache - Nocturia - Nocturnal enuresis - OAB (overactive bladder) - Urge incontinence - UTI (urinary tract infection) PAST SURGICAL HISTORY Procedure Laterality Date - NERVE STIMULATOR,2 2005 bladder stimulator - NERVE STIMULATOR,2 2009 revised bladder stim - NERVE STIMULATOR,07/2014 - NERVE STIMULATOR,12/2014 - REVISE/REMOVE NEUROELECTRODE revision ALLERGIES Advil [Ibuprofen]; Iodine MEDICATIONS levonorgestrel (MIRENA INTRAUTERINE) by INTRAUTERINE route. citalopram hydrobromide (CELEXA) 10 mg tablet take one tablet daily please schedule an appointment for further refills ALBUTEROL SULFATE (VENTOLIN INHALATION) Inhale 2 Puffs as instructed as needed. Rescue inhaler FAMILY HISTORY Problem Relation Age of Onset - Adopted: Yes - other (adopted) Other Social History Substance Use Topics - Smoking status: Never Smoker - Smokeless tobacco: Never Used - Alcohol use No Objective Physical Exam Musculoskeletal: Right elbow: Normal. Right wrist: She exhibits decreased range of motion, tenderness, bony tenderness (distal radial and ulnar) and swelling. She exhibits no effusion, no crepitus, no deformity and no laceration. Right hand: Normal. Nursing note and vitals reviewed. ASSESSMENT/PLAN: 1. Injury of right wrist, initial encounter - ICD9: 959.3, ICD10: S69.91XA - Reviewed xray no acute fractures or dislocations. - Pt verbalized understanding. - Treat as sprain - Placed in thumb spica splint, limited use x 1 week - NSAIDs - RICE - F/u with pcp in 7-10 days or sooner if symptoms are not improving or worsening - XR WRIST INJURY 4V PA/LAT/OBL/SCAPH RT Prescription instructions reviewed with patient as applicable. Patient advised if symptoms do not improve or if symptoms worsen sooner, to contact their primary care physician. Potential red flag symptoms discussed with the patient. Reviewed appropriate action plan to take if red flag symptoms occur. Patient agreeable to treatment plan. Nasrin Oconnor APRN.BROACHING MACHINE SET UP OPERATOR XR WRIST 4V Observed: 05/16/2018 Status: F Source: [place] PA/LAT/OBL/SCAPH RT 1:37 PM [facility] * * *Final Report* * * DATE OF EXAM: May 16 2018 1:37PM WOX [id number] - XR WRIST 4V PA/LAT/OBL/SCAPH RT / PROCEDURE REASON: Injury of right wrist, initial encounter * * * * Physician Interpretation * * * * EXAMINATION: XR WRIST 4V PA/LAT/OBL/SCAPH RT HISTORY: right lateral wrist pain Injury of right wrist, initial encounter . TECHNIQUE: XR WRIST 4V PA/LAT/OBL/SCAPH RT Laterality: RIGHT Number of different views (projections): 4 M: XB_1 COMPARISON: There are no prior studies for comparison. RESULT: 4 views of the right wrist with AP, lateral, oblique and navicular view show no acute osseous, articular or soft tissue abnormality. The radiocarpal and intercarpal articulations are intact. IMPRESSION: No Acute Fracture. Housekeeping And Laundry Team Leader: PSCB Transcribe Date/Time: May 16 2018 1:42P Dictated by : SABRINA ADEN MD This examination was interpreted and the report reviewed and electronically signed by: SABRINA ADEN MD on May 16 2018 1:43PM EST [id number] [id number] Observed: 05/16/2018 Status: COMPLETED Source: [place] 12:44 PM [facility] REPOSITORY HNO ID: [id number] Author: Bridget Dickinson Service: (none) Author Type: (none) Type: Progress Notes Filed: 05/16/2018 12:50 PM Note Text: Radiology Service Progress Note PATIENT NAME: Fabi Ramirez DATE OF SERVICE: May 16, 2018 TIME: 12:44 PM PATIENT IDENTITY VERIFICATION COMPLETED USING TWO (2) METHODS: Patient confirmed name verbally and Date of . PATIENT GENDER DATA: Female. status: : No status: NO. PATIENT RELEVANT IMPLANT DATA REVIEWED: Not Applicable RADIOLOGY DEPARTMENT: General X-ray: Exam(s) Completed: Upper Extremity X-Ray(s): Wrist, right : PERIPHERAL IV DATA: Not applicable SIGNED BY: Bridget Dickinson May 16, 2018 12:44 PM CNOV Observed: 05/16/2018 Status: COMPLETED Source: [place] 12:15 PM [facility] REPOSITORY Office Visit (WSTR) FABI RAMIREZ ([id number]) 1995 F Date Time Provider Department 05/16/18 12:15 PM NASRIN OCONNOR (THU) [facility] During your visit today, we recorded the following information about you: Temperature Pulse Respiration Blood pressure 98.7 degrees 69/minute 16/minute 108/74 Weight 65.8 kg Nasrin Oconnor APRN.BROACHING MACHINE SET UP OPERATOR 05/16/2018 1:32 PM Addendum Sprains of the Ankle, Knee and Wrist What is a sprain? A sprain occurs when a ligament (a band of tissue that connects two or more bones at a joint) is stretched and/or torn. During a sprain, one or more ligaments may be injured. The severity of the sprain depends on the number of ligaments injured and the extent of the injury (whether there is a partial or complete tear). What causes a sprain? A sprain is caused by either direct or indirect trauma that knocks the joint out of position and overstretches, sometimes rupturing the supporting ligaments. Examples of trauma include rolling of the ankle, a fall or a blow to the body. Where do sprains occur? Sprains occur in both the upper and lower parts of the body. However, the three most common sprain sites are the ankle, knee and wrist. ? Ankle sprain? typically occurs when the foot turns inward as a person runs, turns or lands on the ankle after a jump. ? Knee sprain? typically occurs after a blow to the knee or a fall. Sudden twisting of the knee may result in a sprain. ? Wrist sprain ?typically occurs when one falls and lands on an outstretched hand. Who is at risk for sprains? Both professional and amateur athletes? as well as the general public?can sustain this type of injury. However, those who have a history of sprains, are overweight and are in poor physical condition have increased risk. What are the signs and symptoms of sprains? Signs and symptoms may vary due to severity of injury. They may include: ? Pain ? Swelling ? Inflammation ? Bruising ? Instability ? Loss of the ability to move and use the joint When should I see a health care provider for a sprain? ? You have severe pain and cannot put weight on the injured joint. ? The injured area looks crooked, has lumps and bumps (other than swelling) that you do not see on the uninjured joint. ? You cannot move the injured joint. ? There is numbness in any part of the injured area. ? Redness or red streaks spread out from the injury. ? You injure an area that has been injured before. ? You have pain, swelling or redness over a bony part of your foot. ? You are in doubt about the seriousness of the injury and/or how to care for it. How are sprains treated? Health care providers advise patients to follow the rest, ice, compress and elevation (RICE) method for the first 24 to 48 hours after the injury. ? Rest?Reduce regular exercises and activities of daily living. Your health care provider may advise you to not put weight on the injured area for 48 hours. You may need to use crutches. ? Ice?Apply an ice pack to injured area for 20 minutes, four to eight times a day. You can use a cold pack, ice bag or plastic bag filled with ice wrapped in a towel. To avoid abbott bite and cold injury, do not apply the ice for longer than 20 minutes at a time. ? Compression?Compression of the injured area my help reduce swelling. Elastic wraps, specialized boots, air casts and splints may be used as compression bandages. Ask your health care provider which would be the most appropriate to use. Also ask how tightly to apply the bandage safely. ? Elevation?In order to help decrease swelling, keep the injured area elevated on a pillow above the level of your heart. How can I help prevent sprains? To help reduce the risk of sprains: ? Avoid exercising or playing sports when tired or in pain. ? Maintain a healthy weight and well- balanced diet to keep muscles strong. ? Wear shoes that fit properly. ? Practice safety measures to prevent falls. ? Do stretching exercises daily. ? Warm up and stretch before doing any physical activity. References ? National [employer] of Arthritis and Musculoskeletal and Skin Diseases. Questions and Answers about Sprains and Strains Accessed 12/09/2013. ? [employer]. Sprains and Strains: What's the Difference? Accessed 12/09/2013. ? Copyright 2599-6035 [facility]. All rights reserved. This information is provided by the [facility] and is not intended to replace the medical advice of your doctor or health care provider. Please consult your health care provider for advice about a specific medical condition. For additional health information, please contact the Center for Consumer Health Information at the [facility] or toll-free extension [phone]. If you prefer, you may visit [email or web address] or [email or web address]. This document was last reviewed on: 2013 index#75067 Nasrin Oconnor APRN.KOLE 05/16/2018 2:46 PM Signed Subjective HPI Patient presents with: Pain: Wrist R fell this am with arms extended out. States 10/10 on pain scale, sharp to throbbing, constant Analgesics OTC with minimal relief. ROS All other reviewed and negative other than HPI. PAST MEDICAL HISTORY Diagnosis Date - Asthma - CAH (congenital adrenal hyperplasia) - Frequency of micturition - Heart stopped beating (HCC) 2005 post surgical 5-10 minutes - Incontinence of urine congenital - Insomnia - Migraine headache - Nocturia - Nocturnal enuresis - OAB (overactive bladder) - Urge incontinence - UTI (urinary tract infection) PAST SURGICAL HISTORY Procedure Laterality Date - NERVE STIMULATOR,2 2005 bladder stimulator - NERVE STIMULATOR,2 2009 revised bladder stim - NERVE STIMULATOR,07/2014 - NERVE STIMULATOR,0003 12/2014 - REVISE/REMOVE NEUROELECTRODE revision ALLERGIES Advil [Ibuprofen]; Iodine MEDICATIONS levonorgestrel (MIRENA INTRAUTERINE) by INTRAUTERINE route. citalopram hydrobromide (CELEXA) 10 mg tablet take one tablet daily please schedule an appointment for further refills ALBUTEROL SULFATE (VENTOLIN INHALATION) Inhale 2 Puffs as instructed as needed. Rescue inhaler FAMILY HISTORY Problem Relation Age of Onset - Adopted: Yes - other (adopted) Other Social History Substance Use Topics - Smoking status: Never Smoker - Smokeless tobacco: Never Used - Alcohol use No Objective Physical Exam Musculoskeletal: Right elbow: Normal. Right wrist: She exhibits decreased range of motion, tenderness, bony tenderness (distal radial and ulnar) and swelling. She exhibits no effusion, no crepitus, no deformity and no laceration. Right hand: Normal. Nursing note and vitals reviewed. ASSESSMENT/PLAN: 1. Injury of right wrist, initial encounter - ICD9: 959.3, ICD10: S69.91XA - Reviewed xray no acute fractures or dislocations. - Pt verbalized understanding. - Treat as sprain - Placed in thumb spica splint, limited use x 1 week - NSAIDs - RICE - F/u with pcp in 7-10 days or sooner if symptoms are not improving or worsening - XR WRIST INJURY 4V PA/LAT/OBL/SCAPH RT Prescription instructions reviewed with patient as applicable. Patient advised if symptoms do not improve or if symptoms worsen sooner, to contact their primary care physician. Potential red flag symptoms discussed with the patient. Reviewed appropriate action plan to take if red flag symptoms occur. Patient agreeable to treatment plan. Nasrin Oconnor APRN.BROACHING MACHINE SET UP OPERATOR Referring Provider: SELF [[id number]] Allergies As of Date: 05/16/2018 Noted Allergy Reaction ADVIL (IBUPROFEN) 09/29/2017 7 - Swelling IODINE 06/21/2015 9 - Itching Date Reviewed: 05/16/2018 Reviewed by: Malinda Angela Ma - Fully Assessed Reason for Visit: Pain [78] Cmt: Wrist R Primary Visit Diagnosis:Injury of right wrist, initial encounter [S69.91XA] Order(s):XR WRIST INJURY 4V PA/LAT/OBL/SCAPH RT [[id number]] Order #: [id number] FUTURE Prescriptions as of 05/16/2018 Sig: MIRENA INTRAUTERINE by INTRAUTERINE route. 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 Congenital adrenal cortical hyperplasia (HCC) [*INVALID FOR* OAB (overactive bladder) [N32.81] INVALID FOR* Frequency of micturition [R35.0] INVALID FOR* Nocturnal enuresis [N39.44] INVALID FOR* Nocturia [R35.1] INVALID FOR* Other instructions from your clinician: Sprains of the Ankle, Knee and Wrist What is a sprain? A sprain occurs when a ligament (a band of tissue that connects two or more bones at a joint) is stretched and/or torn. During a sprain, one or more ligaments may be injured. The severity of the sprain depends on the number of ligaments injured and the extent of the injury (whether there is a partial or complete tear). What causes a sprain? A sprain is caused by either direct or indirect trauma that knocks the joint out of position and overstretches, sometimes rupturing the supporting ligaments. Examples of trauma include rolling of the ankle, a fall or a blow to the body. Where do sprains occur? Sprains occur in both the upper and lower parts of the body. However, the three most common sprain sites are the ankle, knee and wrist. ? Ankle sprain? typically occurs when the foot turns inward as a person runs, turns or lands on the ankle after a jump. ? Knee sprain? typically occurs after a blow to the knee or a fall. Sudden twisting of the knee may result in a sprain. ? Wrist sprain ?typically occurs when one falls and lands on an outstretched hand. Who is at risk for sprains? Both professional and amateur athletes? as well as the general public?can sustain this type of injury. However, those who have a history of sprains, are overweight and are in poor physical condition have increased risk. What are the signs and symptoms of sprains? Signs and symptoms may vary due to severity of injury. They may include: ? Pain ? Swelling ? Inflammation ? Bruising ? Instability ? Loss of the ability to move and use the joint When should I see a health care provider for a sprain? ? You have severe pain and cannot put weight on the injured joint. ? The injured area looks crooked, has lumps and bumps (other than swelling) that you do not see on the uninjured joint. ? You cannot move the injured joint. ? There is numbness in any part of the injured area. ? Redness or red streaks spread out from the injury. ? You injure an area that has been injured before. ? You have pain, swelling or redness over a bony part of your foot. ? You are in doubt about the seriousness of the injury and/or how to care for it. How are sprains treated? Health care providers advise patients to follow the rest, ice, compress and elevation (RICE) method for the first 24 to 48 hours after the injury. ? Rest?Reduce regular exercises and activities of daily living. Your health care provider may advise you to not put weight on the injured area for 48 hours. You may need to use crutches. ? Ice?Apply an ice pack to injured area for 20 minutes, four to eight times a day. You can use a cold pack, ice bag or plastic bag filled with ice wrapped in a towel. To avoid abbott bite and cold injury, do not apply the ice for longer than 20 minutes at a time. ? Compression?Compression of the injured area my help reduce swelling. Elastic wraps, specialized boots, air casts and splints may be used as compression bandages. Ask your health care provider which would be the most appropriate to use. Also ask how tightly to apply the bandage safely. ? Elevation?In order to help decrease swelling, keep the injured area elevated on a pillow above the level of your heart. How can I help prevent sprains? To help reduce the risk of sprains: ? Avoid exercising or playing sports when tired or in pain. ? Maintain a healthy weight and well- balanced diet to keep muscles strong. ? Wear shoes that fit properly. ? Practice safety measures to prevent falls. ? Do stretching exercises daily. ? Warm up and stretch before doing any physical activity. References ? National [employer] of Arthritis and Musculoskeletal and Skin Diseases. Questions and Answers about Sprains and Strains Accessed 12/09/2013. ? [employer]. Sprains and Strains: What's the Difference? Accessed 12/09/2013. ? Copyright 8447-1588 [facility]. All rights reserved. This information is provided by the [facility] and is not intended to replace the medical advice of your doctor or health care provider. Please consult your health care provider for advice about a specific medical condition. For additional health information, please contact the Center for Consumer Health Information at the [facility] or toll-free extension [phone]. If you prefer, you may visit [email or web address] or [email or web address]. This document was last reviewed on: 2013 index#03007 Disposition: Return if symptoms worsen or fail to improve. Follow-up and Disposition History Recorded Letter Text Nasrin Oconnor, [place].[facility] Ur[facility] [address] [facility] [address] Dept: [phone] 05/16/2018 Fabi Ramirez [address] [facility] [address] To Whom it May Concern: This is to certify that Fabi Ramirez was seen at our office for medical care. Fabi may return to work on 05/17/2018. If you have any questions please feel free to call. Sincerely: Nasirn Oconnor APRN.[facility] Encounter Status:Closed by NASRIN OCONNOR on 05/16/18 PROGRESS Observed: 02/26/2018 Status: COMPLETED Source: [place] 11:07 AM [facility] REPOSITORY HNO ID: [id number] Author: Eliseo Trejo) Casey Service: (none) Author Type: Nurse Practitioner Type: Progress Notes Filed: 02/26/2018 11:31 AM Note Text: PSYCHIATRIC PROGRESS NOTE CC: I had an IUD placed (Mirena) at the beginning of the month and has been having more issues with anxiety and depression. HPI: Fabi reports she has been having issues with mood (depression) and anxiety since having an IUD place at the beginning of the month. She has had thoughts of not wanting to be here over the past few mos; last had these thoughts about 2 mos ago. She denies any active si/hi; denies plan or intent. Sleep has been not great. She has been getting about 4-5 hours of sleep per night. She is tired when she falls asleep,but can take up to 3 -4 hours to fall asleep; initial insomnia occurs 1- 2 times per week. Recent stressors include: dealing with a custody case and has been dealing with a change in jobs (doesn't like her job.) Treatment options discussed. She was asking for benzodiazapine as takes this for anxiety. Explained how benzodiazepines increase the risk of addiction, withdrawal, cognitive decline, motor vehicle crashes, and hip fracture. The risk of overdose is particularly great when combined with sedative drugs such as opioids or alcohol. For these reasons, if used, benzodiazepines generally should not be prescribed continuously for more than one month. Celexa initiated to target depressive and anxiety symptoms.Risks and benefits of the medication, including any black box warnings, were discussed with the patient. Fabi verbalized understanding to all instructions and is in agreement with the treatment plan. PAST MEDICAL HISTORY Diagnosis Date - Asthma - CAH (congenital adrenal hyperplasia) - Frequency of micturition - Heart stopped beating (HCC) 2005 post surgical 5-10 minutes - Incontinence of urine congenital - Insomnia - Migraine headache - Nocturia - Nocturnal enuresis - OAB (overactive bladder) - Urge incontinence - UTI (urinary tract infection) PAST SURGICAL HISTORY Procedure Laterality Date - NERVE STIMULATOR,0003 2006 bladder stimulator - NERVE STIMULATOR,2 2009 revised bladder stim - NERVE STIMULATOR,0003 07/2014 - NERVE STIMULATOR,0003 12/2014 - REVISE/REMOVE NEUROELECTRODE revision ROS: GENERAL: Negative for malaise, significant weight loss and fever HEENT: No changes in hearing or vision, no nose bleeds or other nasal problems NECK: Negative for lumps, goiter, pain and significant neck swelling RESPIRATORY: Negative for cough, wheezing and shortness of breath CARDIOVASCULAR: Negative for chest pain, leg swelling and palpitations GI: Negative for abdominal discomfort, blood in stools or black stools : Negative for dysuria, frequency and incontinence MUSCULOSKELETAL: Negative for joint pain or swelling, back pain, and muscle pain. SKIN: Negative for lesions, rash, and itching. PSYCH: See HPI HEMATOLOGY/LYMPHOLOGY Negative for prolonged bleeding, bruising easily, and swollen nodes. ENDOCRINE: Negative for cold or heat intolerance, polyuria, polydipsia and goiter. NEURO: Negative VITAL SIGNS: 02/26/18 1044 BP: 108/78 Pulse: 68 Weight: 68.5 kg (151 lb) Interval Progress: Slightly worse SINGLE ORGAN PSYCH EXAM: CONSTITUTIONAL: Appropriately dressed MUSCULOSKELETAL: Gait: Normal PAIN: 0 PSYCHIATRIC: Speech: Clear AND distinct Language: Normal Associations: Intact Thought Process: Logical, Coherent and Rational Progression: There was no evidence of disturbance in thought perception or progression. Fund of Knowledge: Appropriate and Adequate MENTAL STATUS EXAM: ORIENTATION: Person, Place, Time and Situation MEMORY: Recent intact, Remote intact, Immediate intact CONCENTRATION: Anxiety interferes MOOD: depressed AFFECT: Restricted SUICIDE: None HOMICIDE: None PFSH: see hpi DATA REVIEWED: PHQ-9- 18/27 and DIANNA-7-14/21 TREATMENT PLAN: initiate Celexa 10mg take 1/2 tablet daily for 2 weeks then increase to one tablet daily follow up in 8 weeks MEDICATION CHANGES: see treatment plan PSYCHIATRY APPOINTMENT: E/M Visit-Pharmacological Management DIAGNOSIS: 1. PRIMARY: Anxiety Disorder Generalized Anxiety Disorder 2. Mood Disorder Major Depressive Disorder, Recurrent, Moderate GAF: 56 -60-51 Moderate symptoms or moderate difficulty in social, occupational or school functioning. Follow Up: see treatment plan Medication/allergies reconciled SIGNATURE: Eliseo Peña APRN.CNP PATIENT NAME: Fabi Crabtree DATE: February 26, 2018 TIME: 11:07 AM PAGER/CONTACT #: CNOV Observed: 01/04/2018 Status: COMPLETED Source: [place] 9:00 AM [facility] REPOSITORY Office Visit (WOOB) FABI CRABTREE ([id number]) 1995 F Date Time Provider Department 01/04/18 9:00 AM LACEY LOCKETT (KOLE) WOOB During your visit today, we recorded the following information about you: Blood pressure Weight 108/60 65.3 kg Lacey Lockett APRN.CNP 01/04/2018 4:10 PM Signed Field Sales Representative offered: Patient declines. Fabi Crabtree presents today for IUD insertion for contraception. No LMP recorded. GC/chlamydia: Not done: no risk factors and/or patient declines screening test: negative Side effects including irregular bleeding were discussed with the patient. She understands that it should be removed in 5 years or sooner if she desires a . IUD source: office provided IUD lot #: [id number] Exp date: 06/2020 UNIVERSAL PROTOCOL / SAFETY CHECKLIST Procedure to be performed: Mirena inserting Sign in Communication: Completed Time Out: Team Confirms the Correct Patient, Correct Procedure, Correct Site and Site Marking, Correct Position (if applicable), Prep and Dry Time (if applicable). Time: 15 Affirmation of Time Out: YES Sign Out Discussion: Completed The uterus sounded to 8 cm and the uterus is Anteverted.. After prepping the cervix with betadine and using sterile technique, the Mirena IUD was inserted after the cervix was dilated - instruments readjust- 2nd [employer] made an attempt to pass sound- after readjustment for the 2nd time the sound passed through easily at this time and the string was cut to 3cm from the external os of the cervix. Patient tolerated procedure well. PLAN: Patient was advised to observe for signs and symptoms of infection including but not limited to fever, malodorous vaginal discharge and/or pain. She was told to check the string monthly for accurate placement. Bleeding expectations were reviewed. Follow up in one month. Lacey Lockett APRN.BROACHING MACHINE SET UP OPERATOR Tammy Swain Ma 01/04/2018 8:55 AM Signed POST IUD INSTRUCTIONS You may have irregular bleeding during the first 3 months of use. You may have mild-severe cramping for the next 48 hours. You may use over the counter medication (Motrin, Tylenol) as needed. Your IUD must be removed or replaced in 3 years if you have a Vivien, 5 years if you have a Mirena or Kyleena and 10 years if you have a Paragard. Call my office for signs/symptoms of infection such as severe cramping, fever, or unusual bleeding. Check for string placement as instructed by your doctor. If you have any additional questions, please contact the office. Referring Provider: LACEY LOCKETT (BROACHING MACHINE SET UP OPERATOR) [[id number]] Allergies As of Date: 01/04/2018 Noted Allergy Reaction ADVIL (IBUPROFEN) 09/29/2017 7 - Swelling IODINE 06/21/2015 9 - Itching Date Reviewed: 01/04/2018 Reviewed by: Tammy Swain Ma - Fully Assessed Reason for Visit: Insertion Of IUD [291] Primary Visit Diagnosis:Pre-op testing [Z01.818] Other Visit Diagnosis:Encounter for IUD insertion [Z30.430] Order(s):HCG QUAL UR B/O [[id number]] Order #: [id number] INSERT INTRAUTERINE DEVICE [[id number]] Order #: [id number] [] levonorgestrel 20 mcg/24 hr (5 years) 1 Each intrauterine device (MIRENA)Disp: Rfl: Prescriptions as of 01/04/2018 Sig: TRAZODONE 50 MG TABLET Take 1 tablet by mouth at bed* GABAPENTIN 300 MG CAPSULE take one in morning and two c* ONDANSETRON 4 MG DISINTEGRATI* Take 1 tablet by mouth every * OMEPRAZOLE 20 MG CAPSULE,LIONEL* Take 1 capsule by mouth daily* VENTOLIN INHALATION Inhale 2 Puffs as instructed * Problem List As Of Date 01/04/2018 Noted Resolved Asthma [J45.909] INVALID FOR* 1.1 Migraine without aura, not intractable [346*INVALID FOR* A1.1.2 menstrually-related migraine without aur*INVALID FOR* Adrenal hyperplasia [E27.8] INVALID FOR* Depression with anxiety [F41.8] INVALID FOR* 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 Congenital adrenal cortical hyperplasia (HCC) [*INVALID FOR* OAB (overactive bladder) [N32.81] INVALID FOR* Frequency of micturition [R35.0] INVALID FOR* Nocturnal enuresis [N39.44] INVALID FOR* Nocturia [R35.1] INVALID FOR* Other instructions from your clinician: POST IUD INSTRUCTIONS You may have irregular bleeding during the first 3 months of use. You may have mild-severe cramping for the next 48 hours. You may use over the counter medication (Motrin, Tylenol) as needed. Your IUD must be removed or replaced in 3 years if you have a Vivien, 5 years if you have a Mirena or Kyleena and 10 years if you have a Paragard. Call my office for signs/symptoms of infection such as severe cramping, fever, or unusual bleeding. Check for string placement as instructed by your doctor. If you have any additional questions, please contact the office. Prescriptions ordered this encounter Disp Refills Start End LEVONORGESTREL 20 MCG/24 HR (5 YEARS* 01/04/2018 01/07/2018 Route: INTRAUTERINE Medications Discontinued During This Encounter miSOPROStol (CYTOTEC) 200 mcg tablet 4 ta* 0 12/17/2017 01/04/2018 Route: VAGINAL Sig: Use 2 tablets vaginally as directed. The night before the procedure and the morning of the procedure. Disc: Reason for discontinue is not on file. Encounter Status:Closed by LACEY LOCKETT on 01/04/18 PROGRESS Observed: 01/04/2018 Status: COMPLETED Source: [place] 8:55 AM [facility] REPOSITORY HNO ID: [id number] Author: Lacey Trejo) Levy Service: (none) Author Type: Nurse Practitioner Type: Progress Notes Filed: 01/04/2018 4:10 PM Note Text: Field Sales Representative offered: Patient declines. Fabi Crabtree presents today for IUD insertion for contraception. No LMP recorded. GC/chlamydia: Not done: no risk factors and/or patient declines screening test: negative Side effects including irregular bleeding were discussed with the patient. She understands that it should be removed in 5 years or sooner if she desires a . IUD source: office provided IUD lot #: [id number] Exp date: 06/2020 UNIVERSAL PROTOCOL / SAFETY CHECKLIST Procedure to be performed: Mirena inserting Sign in Communication: Completed Time Out: Team Confirms the Correct Patient, Correct Procedure, Correct Site and Site Marking, Correct Position (if applicable), Prep and Dry Time (if applicable). Time: 914 Affirmation of Time Out: YES Sign Out Discussion: Completed The uterus sounded to 8 cm and the uterus is Anteverted.. After prepping the cervix with betadine and using sterile technique, the Mirena IUD was inserted after the cervix was dilated - instruments readjust- 2nd [employer] TE[employer]ER made an attempt to pass sound- after readjustment for the 2nd time the sound passed through easily at this time and the string was cut to 3cm from the external os of the cervix. Patient tolerated procedure well. PLAN: Patient was advised to observe for signs and symptoms of infection including but not limited to fever, malodorous vaginal discharge and/or pain. She was told to check the string monthly for accurate placement. Bleeding expectations were reviewed. Follow up in one month. Lacey Lockett APRN.BROACHING MACHINE SET UP OPERATOR GC/CHLAMYDIA AMPLIF Collected: 12/17/2017 Status: F Source: [place] 11:10 AM [facility] REPOSITORY TYPE CODE TESTS RESULT OUT OF REFERENCE UNITS RANGE LAB GCCTSR GC/Chlam Amp Cervix Source LAB GCAMPL GC Negative Amplification for Neisseria gonorrhoeae by amplification. LAB CLAMPL Chlamydia Negative Amplif for Chlamydia trachomatis by amplification. Performed By: #### GCCT #### [facility] [address] [place], [place] [address] CNOV Observed: 12/17/2017 Status: COMPLETED Source: [place] 10:45 AM [facility] REPOSITORY Office Visit (WOOB) FABI CRABTREE ([id number]) 1995 F Date Time Provider Department 12/17/17 10:45 AM LACEY LOCKETT (KO[place]) WOOB During your visit today, we recorded the following information about you: Blood pressure Weight 112/62 65.2 kg Lacey Lockett ([place]) 12/17/2017 12:48 PM Signed Fabi Crabtree is a 22 year old No obstetric history on file. female who presents with the complaint of cramping and pressure pelvic pain for 3 weeks. Pain is Bilateral. Currently having any pain? Yes LOCATION: lower abdomen PAIN CHARACTER: pressure, tenderness and cramping DURATION: (How long have you had the pain?) 3 weeks Postmenopausal? No. Menstrual cycle every 25-30 days Flow 5 days last menses was 16 days took a test that was negative Heavy bleeding? No Intermenstrual spotting? No Post-coital bleeding? No History of fibroids? No Dysmenorrhea? No Concern for exposure to STDs? No Dysuria, urinary frequency or urgency? No Recent weight change? No Contraception: none PAST MEDICAL HISTORY Diagnosis Date - Asthma - CAH (congenital adrenal hyperplasia) - Frequency of micturition - Heart stopped beating (HCC) 2005 post surgical 5-10 minutes - Incontinence of urine congenital - Insomnia - Migraine headache - Nocturia - Nocturnal enuresis - OAB (overactive bladder) - Urge incontinence - UTI (urinary tract infection) PAST SURGICAL HISTORY Procedure Laterality Date - NERVE STIMULATOR,2 2005 bladder stimulator - NERVE STIMULATOR,2 2009 revised bladder stim - NERVE STIMULATOR,0003 07/2014 - NERVE STIMULATOR,0003 12/2014 - REVISE/REMOVE NEUROELECTRODE revision FAMILY HISTORY Problem Relation Age of Onset - Adopted: Yes - adopted [OTHER] Other Social History Marital status: Single Spouse name: Years of education: Number of children: 0 Social History Main Topics Smoking status: Never Smoker Smokeless tobacco: Never Used Alcohol use: No Drug use: No Sexual activity: Yes Partners with: Male Other Topics Concern Service No Blood Transfusions No Caffeine Concern No Occupational Exposure No Hobby Hazards No Sleep Concern Yes Comment:Insomnia Stress Concern No Weight Concern No Special Diet No Back Care No Exercise Yes Comment:Running 1x week Bike Helmet No Seat Belt Yes Self-Exams Yes There were no vitals taken for this visit. GENERAL: pleasant, female in mild distress CHEST: Normal inspiratory effort ABDOMEN: soft, no masses and Moderate tenderness in Generalized PELVIC: external genitalia normal, normal Bartholin's glands, urethra, Parrott's glands, no vulvar lesions, no cervical lesions, good vaginal support, physiologic discharge present, normal appearing perineal body and perianal region, well estrogenized BIMANUAL: uterus normal size, shape and consistency, no adnexal masses, no cervical motion tenderness and Moderate tenderness RECTOVAGINAL: deferred. NEURO: alert and oriented x3,exam grossly non-focal EXTREMITIES: normal ASSESSMENT: recent ultrasound was normal Acute pelvic pain PLAN: GC/Chlamydia screening BV and yeast culture sent Approval for Mirena sent Cytotec ordered for procedure Lacey Lockett APRN.KOLE (pt is getting in [facility] in April) Referring Provider: SELF [200] Allergies As of Date: 12/17/2017 Noted Allergy Reaction ADVIL (IBUPROFEN) 09/29/2017 7 - Swelling IODINE 06/21/2015 9 - Itching Date Reviewed: 12/17/2017 Reviewed by: Lacey Lockett ([facility]) - Fully Assessed Reason for Visit: Pelvic Pain [282] Primary Visit Diagnosis:Pelvic pain in female [R10.2] Order(s):PELVIC US WHI [[id number]] Order #: [id number]: 1 miSOPROStol (CYTOTEC) 200 mcg tabletUse 2 tablets vaginally as directed. The night before the procedure and the morning of the procedure.Disp: 4 tabletRfl: 0 GC/CHLAMYDIA DNA DET [SQGCCAMP] Order #: [id number] BACT/LISSETT VAG GRAM STAIN [SQBVCNSM] Order #: [id number] FUTURE Prescriptions as of 12/17/2017 Sig: GABAPENTIN 300 MG CAPSULE take one in morning and two c* ONDANSETRON 4 MG DISINTEGRATI* Take 1 tablet by mouth every * OMEPRAZOLE 20 MG CAPSULE,LIONEL* Take 1 capsule by mouth daily* X TRAZODONE 50 MG TABLET Take 1 tablet by mouth at bed* VENTOLIN INHALATION Inhale 2 Puffs as instructed * MISOPROSTOL 200 MCG TABLET Use 2 tablets vaginally as di* Problem List As Of Date 12/17/2017 Noted Resolved Asthma [J45.909] INVALID FOR* 1.1 Migraine without aura, not intractable [346*INVALID FOR* A1.1.2 menstrually-related migraine without aur*INVALID FOR* Adrenal hyperplasia [E27.8] INVALID FOR* Depression with anxiety [F41.8] INVALID FOR* CAH (congenital adrenal hypoplasia) [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 Congenital adrenal cortical hyperplasia (HCC) [*INVALID FOR* OAB (overactive bladder) [N32.81] INVALID FOR* Frequency of micturition [R35.0] INVALID FOR* Nocturnal enuresis [N39.44] INVALID FOR* Nocturia [R35.1] INVALID FOR* Prescriptions ordered this encounter Disp Refills Start End MISOPROSTOL 200 MCG TABLET 4 ta* 0 12/17/2017 Route: VAGINAL Sig: Use 2 tablets vaginally as directed. The night before the procedure and the morning of the procedure. Medications Discontinued During This Encounter CYCLOBENZAPRINE HCL (FLEXERIL ORAL) 12/17/2017 Class: Historical Med Route: ORAL Sig: Take 10 mg by mouth as needed. Disc: Reason for discontinue is not on file. lamoTRIgine (LAMICTAL) 100 mg tablet 30 t* 1 10/10/2017 12/17/2017 Route: ORAL Sig: Take 1 tablet by mouth once daily. start after completed 25mg tablets Patient not taking: Reported on 11/28/2017 Disc: Reason for discontinue is not on file. lamoTRIgine (LAMICTAL) 25 mg tablet 42 t* 0 10/10/2017 12/17/2017 Sig: take one 25mg tablet daily at bedtime for 2 weeks then take two 25mg tablets at bedtime for 2 weeks Patient not taking: Reported on 11/28/2017 Disc: Reason for discontinue is not on file. montelukast 10 mg tablet 12/17/2017 Class: Historical Med Route: ORAL Sig: Take 10 mg by mouth daily at bedtime. Disc: Reason for discontinue is not on file. NAPROXEN ORAL 12/17/2017 Class: Historical Med Route: ORAL Sig: Take 500 mg by mouth as needed. Disc: Reason for discontinue is not on file. sulfamethoxazole-trimethoprim (BACTR* 10 t* 0 09/27/2017 12/17/2017 Route: ORAL Sig: Take 1 tablet by mouth twice daily. Patient not taking: Reported on 11/28/2017 Disc: Reason for discontinue is not on file. triamcinolone acetonide (KENALOG) 0.* 30 g 0 09/29/2017 12/17/2017 Route: TOPICAL Sig: Apply 1 application to affected area three times daily. Apply sparingly to area for rash/itching. Patient not taking: Reported on 11/28/2017 Disc: Reason for discontinue is not on file. Encounter Status:Closed by LACEY LOCKETT on 12/17/17 PROGRESS Observed: 12/17/2017 Status: COMPLETED Source: [place] 10:42 AM [facility] REPOSITORY [facility] ID: [id number] Author: Lacey Lockett (Nutrition Assistant) Service: (none) Author Type: Nurse Practitioner Type: Progress Notes Filed: 12/17/2017 12:48 PM Note Text: Fabi Crabtree is a 22 year old No obstetric history on file. female who presents with the complaint of cramping and pressure pelvic pain for 3 weeks. Pain is Bilateral. Currently having any pain? Yes LOCATION: lower abdomen PAIN CHARACTER: pressure, tenderness and cramping DURATION: (How long have you had the pain?) 3 weeks Postmenopausal? No. Menstrual cycle every 25-30 days Flow 5 days last menses was 16 days took a test that was negative Heavy bleeding? No Intermenstrual spotting? No Post-coital bleeding? No History of fibroids? No Dysmenorrhea? No Concern for exposure to STDs? No Dysuria, urinary frequency or urgency? No Recent weight change? No Contraception: none PAST MEDICAL HISTORY Diagnosis Date - Asthma - CAH (congenital adrenal hyperplasia) - Frequency of micturition - Heart stopped beating (HCC) 2005 post surgical 5-10 minutes - Incontinence of urine congenital - Insomnia - Migraine headache - Nocturia - Nocturnal enuresis - OAB (overactive bladder) - Urge incontinence - UTI (urinary tract infection) PAST SURGICAL HISTORY Procedure Laterality Date - NERVE STIMULATOR,2 2005 bladder stimulator - NERVE STIMULATOR,2 2009 revised bladder stim - NERVE STIMULATOR,0003 07/2014 - NERVE STIMULATOR,12/2014 - REVISE/REMOVE NEUROELECTRODE revision FAMILY HISTORY Problem Relation Age of Onset - Adopted: Yes - adopted [OTHER] Other Social History Marital status: Single Spouse name: Years of education: Number of children: 0 Social History Main Topics Smoking status: Never Smoker Smokeless tobacco: Never Used Alcohol use: No Drug use: No Sexual activity: Yes Partners with: Male Other Topics Concern Service No Blood Transfusions No Caffeine Concern No Occupational Exposure No Hobby Hazards No Sleep Concern Yes Comment:Insomnia Stress Concern No Weight Concern No Special Diet No Back Care No Exercise Yes Comment:Running 1x week Bike Helmet No Seat Belt Yes Self-Exams Yes There were no vitals taken for this visit. GENERAL: pleasant, female in mild distress CHEST: Normal inspiratory effort ABDOMEN: soft, no masses and Moderate tenderness in Generalized PELVIC: external genitalia normal, normal Bartholin's glands, urethra, Parrott's glands, no vulvar lesions, no cervical lesions, good vaginal support, physiologic discharge present, normal appearing perineal body and perianal region, well estrogenized BIMANUAL: uterus normal size, shape and consistency, no adnexal masses, no cervical motion tenderness and Moderate tenderness RECTOVAGINAL: deferred. NEURO: alert and oriented x3,exam grossly non-focal EXTREMITIES: normal ASSESSMENT: recent ultrasound was normal Acute pelvic pain PLAN: GC/Chlamydia screening BV and yeast culture sent Approval for Mirena sent Cytotec ordered for procedure Lacey Lockett APRN.CNP (pt is getting in [facility] in April) Observed: 12/17/2017 Status: F Source: [place] BACT/CAND VAG [facility] 12:08 AM [facility] REPOSITORY Sp. Request/Comment: - Swab Smear Result - BACTERIAL VAGINOSIS RESULT: Stain results consistent with normal vaginal jim. No Yeast observed Few Polymorphonuclear leukocytes Few Mononuclear cells Many Epithelial cells Performed By: #### BVCNSM #### [facility] [address] [place], [place] [address] PROGRESS Observed: 12/06/2017 Status: COMPLETED Source: [place] 2:27 PM [facility] REPOSITORY HNO ID: [id number] Author: Arianne Hernández Rdms Service: (none) Author Type: (none) Type: Progress Notes Filed: 12/06/2017 2:27 PM Note Text: Radiology Service Progress Note PATIENT NAME: Fabi Crabtree DATE OF SERVICE: December 06, 2017 TIME: 2:27 PM PATIENT IDENTITY VERIFICATION COMPLETED USING TWO (2) METHODS: Patient confirmed name verbally and Date of . PATIENT GENDER DATA: Female. status: : No status: NO. PATIENT RELEVANT IMPLANT DATA REVIEWED: Not Applicable RADIOLOGY DEPARTMENT: Ultrasound PERIPHERAL IV DATA: Not applicable SIGNED BY: Arianne Hernández Rdms December 06, 2017 2:27 PM US DOPPLER COMPLETE Observed: 12/06/2017 Status: F Source: [place] 1:45 PM [facility] REPOSITORY * * *Final Report* * * DATE OF EXAM: Dec 06 2017 1:45PM [facility] 1033 - US DOPPLER COMPLETE / PROCEDURE REASON: Right lower quadrant pain * * * * Physician Interpretation * * * * EXAMINATION: TRANSVAGINAL AND LIMITED TRANSABDOMINAL PELVIC ULTRASOUND HISTORY: Right lower quadrant pain TECHNIQUE: Sonography of the pelvis was performed by transvaginal and transabdominal (limited) techniques. Images were obtained and stored in a permanent archive. MQ: UFP_1 COMPARISON: None RESULT: Uterus size: 9.6 x 4.3 x 6.5 cm -Orientation: Anteverted -Myometrium: Normal sonographic appearance. -Endometrial echo complex: 1.1 cm -Cervix: 12 mm nabothian cyst Right ovary: 3.1 x 2.1 x 2.0 cm Normal sonographic appearance. Arterial and venous flow is present throughout the ovary on color Doppler imaging with normal spectral waveforms. Left ovary: 4.2 x 1.7 x 1.7 cm Normal sonographic appearance. Arterial and venous flow is present throughout the left ovary on color Doppler imaging with normal spectral waveforms. Pelvis free fluid: None. IMPRESSION: NORMAL SONOGRAPHIC APPEARANCE OF THE FEMALE PELVIS. Housekeeping And Laundry Team Leader: PSCSegundo Transcribe Date/Time: Dec 07 2017 3:03P Dictated by : LOUISE MCFARLANE MD This examination was interpreted and the report reviewed and electronically signed by: LOUISE MCFARLANE MD on Dec 07 2017 3:05PM EST [id number] US FEMALE PELVIS Observed: 12/06/2017 Status: F Source: [place] TRANSVAG 1:45 PM [facility] REPOSITORY * * *Final Report* * * DATE OF EXAM: Dec 06 2017 1:45PM [facility] 1060 - US FEMALE PELVIS TRANSVAG / PROCEDURE REASON: Right lower quadrant pain * * * * Physician Interpretation * * * * EXAMINATION: TRANSVAGINAL AND LIMITED TRANSABDOMINAL PELVIC ULTRASOUND HISTORY: Right lower quadrant pain TECHNIQUE: Sonography of the pelvis was performed by transvaginal and transabdominal (limited) techniques. Images were obtained and stored in a permanent archive. MQ: UFP_1 COMPARISON: None RESULT: Uterus size: 9.6 x 4.3 x 6.5 cm -Orientation: Anteverted -Myometrium: Normal sonographic appearance. -Endometrial echo complex: 1.1 cm -Cervix: 12 mm nabothian cyst Right ovary: 3.1 x 2.1 x 2.0 cm Normal sonographic appearance. Arterial and venous flow is present throughout the ovary on color Doppler imaging with normal spectral waveforms. Left ovary: 4.2 x 1.7 x 1.7 cm Normal sonographic appearance. Arterial and venous flow is present throughout the left ovary on color Doppler imaging with normal spectral waveforms. Pelvis free fluid: None. IMPRESSION: NORMAL SONOGRAPHIC APPEARANCE OF THE FEMALE PELVIS. Housekeeping And Laundry Team Leader: PSCB Transcribe Date/Time: Dec 07 2017 3:03P Dictated by : LOUISE MCFARLANE MD This examination was interpreted and the report reviewed and electronically signed by: LOUISE MCFARLANE MD on Dec 07 2017 3:05PM EST [id number] PROGRESS Observed: 11/29/2017 Status: COMPLETED Source: [place] 12:31 PM [facility] REPOSITORY HNO ID: [id number] Author: Bethanie Leslie Service: (none) Author Type: (none) Type: Progress Notes Filed: 11/29/2017 12:32 PM Note Text: Radiology Service Progress Note PATIENT NAME: Fabi Crabtree DATE OF SERVICE: November 29, 2017 TIME: 12:31 PM PATIENT IDENTITY VERIFICATION COMPLETED USING TWO (2) METHODS: Patient confirmed name verbally and Date of . PATIENT GENDER DATA: Female. status: : No status: NO. PATIENT RELEVANT IMPLANT DATA REVIEWED: Not Applicable RADIOLOGY DEPARTMENT: CT; Exam(s) Completed: Abdomen/Pelvis PERIPHERAL IV DATA: Not applicable SIGNED BY: Bethanie Busby [address] November 29, 2017 12:[address] ABD/PEL WO IVCON Observed: 11/29/2017 Status: F Source: [place] 12:31 PM [facility] REPOSITORY * * *Final Report* * * DATE OF EXAM: Nov 29 2017 12:31PM [facility] 0531 - CT ABD/PEL WO IVCON / PROCEDURE REASON: Right lower quadrant pain * * * * Physician Interpretation * * * * EXAMINATION: CT ABDOMEN AND PELVIS WITHOUT IV CONTRAST CLINICAL HISTORY: Right lower quadrant pain TECHNIQUE: Non-IV contrast imaging of the abdomen and pelvis was performed using standard technique, scanning from just above the dome of the diaphragm to the symphysis pubis. Unenhanced imaging is limited for the evaluation of some intra-abdominal and pelvic pathology. MQ: CTAPWO_3 Contrast: IV: None Oral: 50 ml of 50ML Omnipaque [address] Radiation dose: Integrated Dose-length product (DLP) for this visit = 229 mGy*cm. CT Dose Reduction Employed: Automated exposure control (AEC) COMPARISON: None. RESULT: Abdomen / Pelvis: Liver: Unremarkable. Biliary: No biliary dilatation. Gallbladder is unremarkable. Spleen: No splenomegaly. Pancreas: Unremarkable. Adrenals: No mass. Kidneys: No calculus, hydronephrosis or finding to suggest a cyst or mass in the unenhanced kidney. GI Tract: No bowel dilation. The appendix is normal. Lymph Nodes: No lymphadenopathy. Mesentery/peritoneum: No ascites. Retroperitoneum: No mass. Vasculature: Abdominal aorta is normal in contour and caliber. Pelvis: No mass or ascites. 0.6 cm low-attenuation lesion within the region of the cervix, possibly nabothian cyst. Bones/Soft Tissues: No acute abnormality. Lower thorax: Unremarkable. IMPRESSION: No acute process is seen. Housekeeping And Laundry Team Leader: HAMILTON Transcribe Date/Time: Nov 29 2017 12:48P Dictated by : DENIS MORRISON MD This examination was interpreted and the report reviewed and electronically signed by: DENIS MORRISON MD on Nov 29 2017 12:50PM EST [id number] CBC AND DIFFERENTIAL Collected: 11/28/2017 Status: F Source: [place] 5:19 PM [facility] REPOSITORY TYPE CODE TESTS RESULT OUT OF REFERENCE UNITS RANGE LAB WBC 3.70-11.00 k/uL WBC 4.72 LAB RBC 3.90-5.20 m/uL RBC 4.37 LAB HGB 11.5-15.5 g/dL Hemoglobin 12.4 LAB HCT 36.0-46.0 % Hematocrit 38.4 LAB MCV 80.0-100.0 fL MCV 87.9 LAB MCH 26.0-34.0 pG MCH 28.4 LAB MCHC 30.5-36.0 g/dL MCHC 32.3 LAB RDWCV 11.5-15.0 % RDW-CV 13.7 LAB PLTCT 150-400 k/uL Platelet Count 215 LAB MPV 9.0-12.7 fL MPV 9.8 LAB ANEUT % Neut% 26.9 LAB AANEUT 1.45-7.50 k/uL Low Abs Neut 1.31 LAB ALYMP % Lymph% 51.2 LAB AALYMP 1.00-4.00 k/uL Abs Lymph 2.52 LAB AMONO % Hampton% 8.3 LAB AAMONO <0.87 k/uL Abs Hampton 0.41 LAB AEOS % Eosin% 13.0 LAB AAEOS <0.46 k/uL Abs High Eosin 0.64 LAB ABASO % Baso% 0.6 LAB AABASO <0.11 k/uL Abs Baso 0.03 LAB AUNRBC 0 /100 WBC NRBCs 0.0 LAB ABNRBC <0.01 k/uL Absolute nRBC <0.01 LAB DTYP DTYPE Auto Diff Performed By: #### CBCDIF, WSR, CMP, CRP #### [facility] [address] [place] [address] SED RATE WESTERGREN Collected: 11/28/2017 Status: F Source: [place] 5:19 PM [facility] REPOSITORY TYPE CODE TESTS RESULT OUT OF REFERENCE UNITS RANGE LAB WSR 0-20 mm/hr Sed Rate Westergren 5 Performed By: #### CBCDIF, WSR, CMP, CRP #### [place] [id number] [place] [address] COMP METABOLIC PANEL Collected: 11/28/2017 Status: F Source: [place] 5:19 PM [facility] REPOSITORY TYPE CODE TESTS RESULT OUT OF REFERENCE UNITS RANGE LAB TP 6.3-8.0 g/dL Protein, Total 7.8 LAB ALB 3.9-4.9 g/dL Albumin 4.5 LAB CA 8.5-10.2 mg/dL Calcium, Total 9.3 LAB TBIL 0.2-1.3 mg/dL Bilirubin, Total 0.4 LAB ALKP 32-117 U/L Alkaline Phosphatase 54 LAB AST 13-35 U/L AST 26 LAB GLU 74-99 mg/dL Glucose 79 Result Comment: The [place] [employer] (ADA) provides guidance for cutoff values for fasting glucose and random glucose. The ADA defines fasting as no caloric intake for at least 8 hours. Fas ting plasma glucose results between 100 to 125 mg/dL indicate increased risk for diabetes (prediabetes). Fasting plasma glucose results greater than or equal to 126 mg/dL meet the criteria for diagnosis of diabetes. In the absence of unequivocal hyperglycemia, results should be confirmed by repeat testing. In a patient with classic symptoms of hyperglycemia or hyperglycemic crisis, random plasma glucose results greater than or equal to 200 mg/dL meet the criteria for diagnosis of diabetes. Reference: Standards of Medical Care in Diabetes 2016, [place] [employer]. Diabetes Care. 2016.39(Suppl 1). LAB BUN 7-21 mg/dL BUN 21 LAB CRET 0.58-0.96 mg/dL Creatinine High 1.05 LAB NA 136-144 mmol/L Sodium 137 LAB K 3.7-5.1 mmol/L Potassium 4.4 LAB CL 97-105 mmol/L Chloride 99 LAB CO2 22-30 mmol/L CO2 23 LAB AGAP 9-18 mmol/L Anion Gap 15 LAB ALT 7-38 U/L ALT 8 LAB GFRAA eGFR- Amer. >60 LAB GFRNAA . eGFR-All Other Races >60 Result Comment: eGFR (Estimated GFR) Units of measure: mL/min/1.73 meters squared eGFR is derived from the reexpressed MDRD Study equation using the following parameters: serum creatinine, age, gender and race. The creatinine assay has been calibrated to be traceable to IDMS. An eGFR <60 mL/min/1.73m2 for >3 months is consistent with chronic kidney disease. Refer to KDOQI guidelines for clinical interpretation. In patients with unstable renal function, e.g. those with acute kidney injury, the eGFR may not accurately reflect actual GFR. Performed By: #### CBCDIF, WSR, CMP, CRP #### [facility] [employer] [address] [place], [place] [address] C-REACTIVE PROTEIN Collected: 11/28/2017 Status: F Source: [place] 5:19 PM [facility] REPOSITORY TYPE CODE TESTS RESULT OUT OF REFERENCE UNITS RANGE LAB CRP <0.9 mg/dL C-Reactive <0.1 Protein Performed By: #### CBCDIF, WSR, CMP, CRP #### [facility] [address] [place], [place] [address] PROGRESS Observed: 11/28/2017 Status: COMPLETED Source: [place] 4:24 PM [facility] REPOSITORY HNO ID: [id number] Author: Misty Boggs) Ashlie Service: (none) Author Type: Physician Type: Progress Notes Filed: 11/28/2017 5:43 PM Note Text: Chief Complaint Patient presents with: Abdominal Pain: x 10 days Anorexia HPI Fabi Crabtree is a 22 year old female who presents here today for Above Complaints.. For the last 10 days, patient has had pain in her right lower abdomen described as constant ache with occasional sharp sensation without radiation. Currently 5/. Exacerbated with eating and drinking, leaning to left. Not treating with any OTC medications at home. Admits to nausea and vomiting without blood or coffee ground emesis. Denies fever, chills, diarrhea, constipation, GERD, vaginal bleeding, vaginal discharge, urinary symptoms, recent trauma. Feels like pain is worsening slowly. Notes that she is 6 days late for her period. Past medical history, appointments, medications, allergies reviewed. Previous Medical History PAST MEDICAL HISTORY Diagnosis Date - Asthma - CAH (congenital adrenal hyperplasia) - Frequency of micturition - Heart stopped beating (HCC) 2005 post surgical 5-10 minutes - Incontinence of urine congenital - Insomnia - Migraine headache - Nocturia - Nocturnal enuresis - OAB (overactive bladder) - Urge incontinence - UTI (urinary tract infection) Previous Surgical History PAST SURGICAL HISTORY Procedure Laterality Date - NERVE STIMULATOR,2 2005 bladder stimulator - NERVE STIMULATOR,2 2009 revised bladder stim - NERVE STIMULATOR,0003 07/2014 - NERVE STIMULATOR,0003 12/2014 - REVISE/REMOVE NEUROELECTRODE revision Family History FAMILY HISTORY Problem Relation Age of Onset - Adopted: Yes - adopted [OTHER] Other Patient Allergies ALLERGIES Allergen Reactions - Advil [Ibuprofen] Swelling - Iodine Itching Current Medications Current Outpatient Prescriptions on File Prior to Visit: traZODone (DESYREL) 50 mg tablet Take 1 tablet by mouth at bedtime as needed. gabapentin (NEURONTIN) 300 mg capsule take one in morning and two capsules at night (given instructions how to titrate medication) lamoTRIgine (LAMICTAL) 100 mg tablet Take 1 tablet by mouth once daily. start after completed 25mg tablets lamoTRIgine (LAMICTAL) 25 mg tablet take one 25mg tablet daily at bedtime for 2 weeks then take two 25mg tablets at bedtime for 2 weeks triamcinolone acetonide (KENALOG) 0.1 % cream Apply 1 application to affected area three times daily. Apply sparingly to area for rash/itching. sulfamethoxazole-trimethoprim (BACTRIM DS) 800-160 mg per tablet Take 1 tablet by mouth twice daily. ALBUTEROL SULFATE (VENTOLIN INHALATION) Inhale 2 Puffs as instructed as needed. Rescue inhaler CYCLOBENZAPRINE HCL (FLEXERIL ORAL) Take 10 mg by mouth as needed. NAPROXEN ORAL Take 500 mg by mouth as needed. montelukast 10 mg tablet Take 10 mg by mouth daily at bedtime. No current facility-administered medications on file prior to visit. Social History Social History Marital status: Single Spouse name: Years of education: Number of children: 0 Social History Main Topics Smoking status: Never Smoker Smokeless status: Never Used Alcohol use: No Drug use: No Sexual activity: Not Currently Other Topics Concern Service No Blood Transfusions No Caffeine Concern No Occupational Exposure No Hobby Hazards No Sleep Concern Yes Comment:Insomnia Stress Concern No Weight Concern No Special Diet No Back Care No Exercise Yes Comment:Running 1x week Bike Helmet No Seat Belt Yes Self-Exams Yes Review of Symptoms REVIEW OF SYSTEMS See HPI EXAM: BP 114/88 Pulse 72 Temp 36.4 ?C (97.5 ?F) (Tympanic) Resp 12 Wt 68.5 kg (151 lb) LMP 10/16/2017 BMI 21.67 kg/m2 General Appearance: Well appearing, alert, in no acute distress, well-hydrated, well nourished.. Skin: Skin color, texture, turgor normal, no suspicious rashes or lesions. Lungs: Lungs clear to auscultation. No wheezing, rhonchi, rales. Heart: RRR without murmur, gallop, or rubs. No ectopy. Abdomen: Abdomen soft. Bowel sounds normal. No masses, organomegaly, Positive findings: tenderness moderate RLQ without guarding but positive for rebound. No CVA tenderness. Health Maintenance List TETANUS due on 2004 HPV VACCINE(1 of 3 - Female 3 Dose Series) due on 2004 GC (GONORRHEA) SCREENING (18-24) due on 02/23/2017 CHLAMYDIA SCREENING (18-24) due on 02/23/2017 INFLUENZA(Season Ended) due on 04/06/2018 PAP EVERY 3 YEARS (21-30 YEAR OLDS) due on 02/22/2019 Data reviewed Component Latest Ref Rng AND Units 11/28/2017 11/28/2017 4:53 PM 4:53 PM Glucose, Urine Neg mg/dL neg Bilirubin, Urine Neg neg Ketones, Urine Neg neg Specific [place], Ur 1.005 - 1.030 1.020 Hemoglobin/Blood,Ur Neg neg pH, Urine 4.5 - 8.0 6.0 Protein, Urine Neg mg/dL neg Urobilinogen, Urine Normal (<1.1) EU normal Nitrites Neg neg Leukocytes Neg neg Color/Appearance comment: yellow/clear Quality Check yes/no Yes Yes , Urine neg - pos neg ASSESSMENT/PLAN: 1. Right lower quadrant pain - ICD9: 789.03, ICD10: R10.31 Unknown etiology. Negative UA and urine testing. Will obtain blood work and CT abd/pelvis in the next 24 hours. Given zofran for nausea and PPI due to pain with eating. Advised bland diet, pushing PO fluids, and to go to ED with severe symptoms. If all negative, would consider US to evaluate for ovarian torsion vs referral to GI or [employer]. - UA DIP B/O - HCG QUAL UR B/O - CBC + DIFF - COMP METABOLIC PANEL - SED RATE WESTERGREN - C-REACTIVE PROTEIN (CRP) - CT ABD/PEL WO IVCON - ONDANSETRON 4 MG DISINTEGRATING TABLET - OMEPRAZOLE 20 MG CAPSULE,DELAYED RELEASE Misty Dailey MD CNOV Observed: 11/28/2017 Status: COMPLETED Source: [place] 4:20 PM [facility] REPOSITORY Office Visit (FAMPWS) FABI CRABTREE ([id number]) 1995 F Date Time Provider Department 11/28/17 4:20 PM MISTY DAILEY) FAMPWS During your visit today, we recorded the following information about you: Temperature Pulse Respiration Blood pressure 97.5 degrees 72/minute 12/minute 114/88 Weight Last Period 68.5 kg 10/16/17 Misty Dailey MD 11/28/2017 5:43 PM Signed Chief Complaint Patient presents with: Abdominal Pain: x 10 days Anorexia HPI Fabi Crabtree is a 22 year old female who presents here today for Above Complaints.. For the last 10 days, patient has had pain in her right lower abdomen described as constant ache with occasional sharp sensation without radiation. Currently 5. Exacerbated with eating and drinking, leaning to left. Not treating with any OTC medications at home. Admits to nausea and vomiting without blood or coffee ground emesis. Denies fever, chills, diarrhea, constipation, GERD, vaginal bleeding, vaginal discharge, urinary symptoms, recent trauma. Feels like pain is worsening slowly. Notes that she is 6 days late for her period. Past medical history, appointments, medications, allergies reviewed. Previous Medical History PAST MEDICAL HISTORY Diagnosis Date - Asthma - CAH (congenital adrenal hyperplasia) - Frequency of micturition - Heart stopped beating (HCC) 2005 post surgical 5-10 minutes - Incontinence of urine congenital - Insomnia - Migraine headache - Nocturia - Nocturnal enuresis - OAB (overactive bladder) - Urge incontinence - UTI (urinary tract infection) Previous Surgical History PAST SURGICAL HISTORY Procedure Laterality Date - NERVE STIMULATOR,2 2005 bladder stimulator - NERVE STIMULATOR,2 2009 revised bladder stim - NERVE STIMULATOR,0003 07/2014 - NERVE STIMULATOR,0003 12/2014 - REVISE/REMOVE NEUROELECTRODE revision Family History FAMILY HISTORY Problem Relation Age of Onset - Adopted: Yes - adopted [OTHER] Other Patient Allergies ALLERGIES Allergen Reactions - Advil [Ibuprofen] Swelling - Iodine Itching Current Medications Current Outpatient Prescriptions on File Prior to Visit: traZODone (DESYREL) 50 mg tablet Take 1 tablet by mouth at bedtime as needed. gabapentin (NEURONTIN) 300 mg capsule take one in morning and two capsules at night (given instructions how to titrate medication) lamoTRIgine (LAMICTAL) 100 mg tablet Take 1 tablet by mouth once daily. start after completed 25mg tablets lamoTRIgine (LAMICTAL) 25 mg tablet take one 25mg tablet daily at bedtime for 2 weeks then take two 25mg tablets at bedtime for 2 weeks triamcinolone acetonide (KENALOG) 0.1 % cream Apply 1 application to affected area three times daily. Apply sparingly to area for rash/itching. sulfamethoxazole-trimethoprim (BACTRIM DS) 800-160 mg per tablet Take 1 tablet by mouth twice daily. ALBUTEROL SULFATE (VENTOLIN INHALATION) Inhale 2 Puffs as instructed as needed. Rescue inhaler CYCLOBENZAPRINE HCL (FLEXERIL ORAL) Take 10 mg by mouth as needed. NAPROXEN ORAL Take 500 mg by mouth as needed. montelukast 10 mg tablet Take 10 mg by mouth daily at bedtime. No current facility-administered medications on file prior to visit. Social History Social History Marital status: Single Spouse name: Years of education: Number of children: 0 Social History Main Topics Smoking status: Never Smoker Smokeless status: Never Used Alcohol use: No Drug use: No Sexual activity: Not Currently Other Topics Concern Service No Blood Transfusions No Caffeine Concern No Occupational Exposure No Hobby Hazards No Sleep Concern Yes Comment:Insomnia Stress Concern No Weight Concern No Special Diet No Back Care No Exercise Yes Comment:Running 1x week Bike Helmet No Seat Belt Yes Self-Exams Yes Review of Symptoms REVIEW OF SYSTEMS See HPI EXAM: BP 114/88 Pulse 72 Temp 36.4 ?C (97.5 ?F) (Tympanic) Resp 12 Wt 68.5 kg (151 lb) LMP 10/16/2017 BMI 21.67 kg/m2 General Appearance: Well appearing, alert, in no acute distress, well-hydrated, well nourished.. Skin: Skin color, texture, turgor normal, no suspicious rashes or lesions. Lungs: Lungs clear to auscultation. No wheezing, rhonchi, rales. Heart: RRR without murmur, gallop, or rubs. No ectopy. Abdomen: Abdomen soft. Bowel sounds normal. No masses, organomegaly, Positive findings: tenderness moderate RLQ without guarding but positive for rebound. No CVA tenderness. Health Maintenance List TETANUS due on 2004 HPV VACCINE(1 of 3 - Female 3 Dose Series) due on 2004 GC (GONORRHEA) SCREENING (18-24) due on 02/23/2017 CHLAMYDIA SCREENING (18-24) due on 02/23/2017 INFLUENZA(Season Ended) due on 04/06/2018 PAP EVERY 3 YEARS (21-30 YEAR OLDS) due on 02/22/2019 Data reviewed Component Latest Ref Rng ANDamp; Units 11/28/2017 11/28/2017 4:53 PM 4:53 PM Glucose, Urine Neg mg/dL neg Bilirubin, Urine Neg neg Ketones, Urine Neg neg Specific [place], Ur 1.005 - 1.030 1.020 Hemoglobin/Blood,Ur Neg neg pH, Urine 4.5 - 8.0 6.0 Protein, Urine Neg mg/dL neg Urobilinogen, Urine Normal (ANDlt;1.1) EU normal Nitrites Neg neg Leukocytes Neg neg Color/Appearance comment: yellow/clear Quality Check yes/no Yes Yes , Urine neg - pos neg ASSESSMENT/PLAN: 1. Right lower quadrant pain - ICD9: 789.03, ICD10: R10.31 Unknown etiology. Negative UA and urine testing. Will obtain blood work and CT abd/pelvis in the next 24 hours. Given zofran for nausea and PPI due to pain with eating. Advised bland diet, pushing PO fluids, and to go to ED with severe symptoms. If all negative, would consider US to evaluate for ovarian torsion vs referral to GI or [employer]. - UA DIP B/O - HCG QUAL UR B/O - CBC + DIFF - COMP METABOLIC PANEL - SED RATE WESTERGREN - C-REACTIVE PROTEIN (CRP) - CT ABD/PEL WO IVCON - ONDANSETRON 4 MG DISINTEGRATING TABLET - OMEPRAZOLE 20 MG CAPSULE,DELAYED RELEASE Misty Dailey MD Referring Provider: SELF [[id number]] Allergies As of Date: 11/28/2017 Noted Allergy Reaction ADVIL (IBUPROFEN) 09/29/2017 7 - Swelling IODINE 06/21/2015 9 - Itching Date Reviewed: 11/28/2017 Reviewed by: Willi Ford Ma - Fully Assessed Reason for Visit: Abdominal Pain [1] Cmt: x 10 days Anorexia [7] Primary Visit Diagnosis:Right lower quadrant pain [R10.31] Order(s):UA DIP B/O [[id number]] Order #: [id number] HCG QUAL UR B/O [[id number]] Order #: [id number] CBC + DIFF [SQCBCDIF] Order #: [id number] FUTURE COMP METABOLIC PANEL [SQCMP] Order #: [id number] FUTURE SED RATE WESTERGREN [SQWSR] Order #: [id number] FUTURE C-REACTIVE PROTEIN (CRP) [SQCRP] Order #: [id number] FUTURE CT ABD/PEL WO IVCON [[id number]] Order #: [id number] FUTURE ondansetron orally disintegrating (ZOFRAN ODT) 4 mg disintegrating tabletTake 1 tablet by mouth every 6 hours as needed for Nausea/Vomiting.Disp: 20 tabletRfl: 0 omeprazole (PRILOSEC) 20 mg capsuleTake 1 capsule by mouth daily before breakfast. 1/2 hr before meal.Disp: 30 capsuleRfl: 0 Prescriptions as of 11/28/2017 Sig: TRAZODONE 50 MG TABLET Take 1 tablet by mouth at bed* VENTOLIN INHALATION Inhale 2 Puffs as instructed * ONDANSETRON 4 MG DISINTEGRATI* Take 1 tablet by mouth every * OMEPRAZOLE 20 MG CAPSULE,LIONEL* Take 1 capsule by mouth daily* GABAPENTIN 300 MG CAPSULE take one in morning and two c* Patient not taking: Reported on 11/28/2017 LAMOTRIGINE 100 MG TABLET Take 1 tablet by mouth once d* Patient not taking: Reported on 11/28/2017 LAMOTRIGINE 25 MG TABLET take one 25mg tablet daily at* Patient not taking: Reported on 11/28/2017 TRIAMCINOLONE ACETONIDE 0.1 %* Apply 1 application to affect* Patient not taking: Reported on 11/28/2017 SULFAMETHOXAZOLE 800 MG-TRIME* Take 1 tablet by mouth twice * Patient not taking: Reported on 11/28/2017 FLEXERIL ORAL Take 10 mg by mouth as needed* NAPROXEN ORAL Take 500 mg by mouth as neede* MONTELUKAST 10 MG TABLET Take 10 mg by mouth daily at * Medication notes this encounter FLEXERIL ORAL >> Willi Ford Ma 11/28/2017 4:39 PM >> WILLI FORD MA SunNov 28, 2017 4:39 PM No longer taking NAPROXEN ORAL >> Willi Ford Ma 11/28/2017 4:39 PM >> WILLI FORD MA SunNov 28, 2017 4:39 PM Not taking MONTELUKAST 10 MG TABLET >> Willi Ford Ma 11/28/2017 4:39 PM >> WILLI FORD MA SunNov 28, 2017 4:39 PM No longer taking Problem List As Of Date 11/28/2017 Noted Resolved Asthma [J45.909] INVALID FOR* 1.1 Migraine without aura, not intractable [346*INVALID FOR* A1.1.2 menstrually-related migraine without aur*INVALID FOR* Adrenal hyperplasia [E27.8] INVALID FOR* Depression with anxiety [F41.8] INVALID FOR* CAH (congenital adrenal hypoplasia) [XKI2035] INVALID FOR* More... Congenital adrenal cortical hyperplasia (HCC) [*INVALID FOR* OAB (overactive bladder) [N32.81] INVALID FOR* Frequency of micturition [R35.0] INVALID FOR* Nocturnal enuresis [N39.44] INVALID FOR* Nocturia [R35.1] INVALID FOR* Prescriptions ordered this encounter Disp Refills Start End ONDANSETRON 4 MG DISINTEGRATING TABL* 20 t* 0 11/28/2017 Route: ORAL Sig: Take 1 tablet by mouth every 6 hours as needed for Nausea/Vomiting. OMEPRAZOLE 20 MG CAPSULE,DELAYED REL* 30 c* 0 11/28/2017 Route: ORAL Sig: Take 1 capsule by mouth daily before breakfast. 1/2 hr before meal. Disposition: Return if symptoms worsen or fail to improve. Follow-up and Disposition History Recorded Encounter Status:Closed by MISTY DAILEY MD on 11/28/17 PROGRESS Observed: 11/02/2017 Status: COMPLETED Source: [place] 8:49 AM CLINIC OTHER CAMPUS REPOSITORY O ID: [id number] Author: Alyssa Weems (Pa) Service: (none) Author Type: Physician Filling Station Equipment Mechanic Type: Progress Notes Filed: 11/02/2017 9:24 AM Note Text: ESTABLISHED PATIENT OFFICE VISIT HISTORY OF PRESENT ILLNESS: Fabi Crabtree is a 22 year old female, Ht 177.8 cm (5' 10) BMI 22.24 kg/m2 with a PMH significant for infected interstim. Pt reports yellow d/c from midline incisions x 2 days. 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 Pt denies fever, chills. interstim is helping urinary issues. . LAB: Creatinine Date Value Ref Range Status 12/06/2016 0.96 0.58 - 0.96 mg/dL Final No results found for: PSA Glucose, Urine (mg/dL) Date Value 09/03/2017 neg Bilirubin, Urine (no units) Date Value 09/03/2017 neg Ketones, Urine (no units) Date Value 09/03/2017 neg Specific [place], Ur (no units) Date Value 09/27/2017 1.019 Hemoglobin/Blood,Ur (no units) Date Value 09/03/2017 neg pH, Urine (no units) Date Value 09/03/2017 6.0 Protein, Urine (mg/dL) Date Value 09/03/2017 neg Urobilinogen, Urine (EU) Date Value 09/03/2017 0.2 Nitrites (no units) Date Value 09/03/2017 neg Leukocytes (no units) Date Value 09/03/2017 neg Color/Appearance (comment:) Date Value 09/03/2017 yellow clear MEDICATIONS: cephALEXin (KEFLEX) 500 mg capsule Take 1 capsule by mouth three times daily for 7 days. traZODone (DESYREL) 50 mg tablet Take 1 tablet by mouth at bedtime as needed. gabapentin (NEURONTIN) 300 mg capsule take one in morning and two capsules at night (given instructions how to titrate medication) lamoTRIgine (LAMICTAL) 100 mg tablet Take 1 tablet by mouth once daily. start after completed 25mg tablets lamoTRIgine (LAMICTAL) 25 mg tablet take one 25mg tablet daily at bedtime for 2 weeks then take two 25mg tablets at bedtime for 2 weeks triamcinolone acetonide (KENALOG) 0.1 % cream Apply 1 application to affected area three times daily. Apply sparingly to area for rash/itching. sulfamethoxazole-trimethoprim (BACTRIM DS) 800-160 mg per tablet Take 1 tablet by mouth twice daily. ALBUTEROL SULFATE (VENTOLIN INHALATION) Inhale 2 Puffs as instructed as needed. Rescue inhaler CYCLOBENZAPRINE HCL (FLEXERIL ORAL) Take 10 mg by mouth as needed. NAPROXEN ORAL Take 500 mg by mouth as needed. montelukast 10 mg tablet Take 10 mg by mouth daily at bedtime. Review of Systems Constitutional: Negative for chills, fatigue and fever. Respiratory: Negative for shortness of breath and wheezing. Gastrointestinal: Negative for abdominal pain, constipation, diarrhea and nausea. Genitourinary: Negative for difficulty urinating, dysuria, flank pain, frequency, hematuria and urgency. Neurological: Negative for dizziness, light-headedness and headaches. Psychiatric/Behavioral: Negative for behavioral problems. The patient is not nervous/anxious. HISTORIES PAST MEDICAL HISTORY Diagnosis Date - Asthma - CAH (congenital adrenal hyperplasia) - Frequency of micturition - Heart stopped beating (HCC) 2005 post surgical 5-10 minutes - Incontinence of urine congenital - Insomnia - Migraine headache - Nocturia - Nocturnal enuresis - OAB (overactive bladder) - Urge incontinence - UTI (urinary tract infection) FAMILY HISTORY Problem Relation Age of Onset - Adopted: Yes - adopted [OTHER] Other Social History Substance Use Topics - Smoking status: Never Smoker - Smokeless tobacco: Never Used - Alcohol use No PHYSICAL EXAMINATION GENERAL APPEARANCE: Well appearing, alert, in no acute distress, well-hydrated, well nourished. PHYSICAL EXAM: Back: battery incision mildly tender, no erythema or exudate, incision closed. Midline incisions are inflamed, mildly erythematous, yellow d/c expressed, mildly tender. ASSESSMENT/PLAN: 1. OAB (overactive bladder) - ICD9: 596.51, ICD10: N32.81 (primary diagnosis) Keflex 2. Frequency of micturition - ICD9: 788.41, ICD10: R35.0 SUSAN [place] Observed: 11/02/2017 Status: COMPLETED Source: [place] 8:00 AM [facility] OTHER [place] REPOSITORY Office Visit (AKURFL) FABI CRABTREE ([id number]) 1995 F Date Time Provider Department 11/02/17 8:00 AM ALYSSA WEEMS (PA) During your visit today, we recorded the following information about you: Blood pressure Weight Height 102/70 70.3 kg 1.778 m Alyssa Weems PA-C 11/02/2017 9:24 AM Signed ESTABLISHED PATIENT OFFICE VISIT HISTORY OF PRESENT ILLNESS: Fabi Crabtree is a 22 year old female, Ht 177.8 cm (5' 10ANDquot;) BMI 22.24 kg/m2 with a PMH significant for infected interstim. Pt reports yellow d/c from midline incisions x 2 days. 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 Pt denies fever, chills. interstim is helping urinary issues. . LAB: Creatinine Date Value Ref Range Status 12/06/2016 0.96 0.58 - 0.96 mg/dL Final No results found for: PSA Glucose, Urine (mg/dL) Date Value 09/03/2017 neg Bilirubin, Urine (no units) Date Value 09/03/2017 neg Ketones, Urine (no units) Date Value 09/03/2017 neg Specific [place], Ur (no units) Date Value 09/27/2017 1.019 Hemoglobin/Blood,Ur (no units) Date Value 09/03/2017 neg pH, Urine (no units) Date Value 09/03/2017 6.0 Protein, Urine (mg/dL) Date Value 09/03/2017 neg Urobilinogen, Urine (EU) Date Value 09/03/2017 0.2 Nitrites (no units) Date Value 09/03/2017 neg Leukocytes (no units) Date Value 09/03/2017 neg Color/Appearance (comment:) Date Value 09/03/2017 yellow clear MEDICATIONS: cephALEXin (KEFLEX) 500 mg capsule Take 1 capsule by mouth three times daily for 7 days. traZODone (DESYREL) 50 mg tablet Take 1 tablet by mouth at bedtime as needed. gabapentin (NEURONTIN) 300 mg capsule take one in morning and two capsules at night (given instructions how to titrate medication) lamoTRIgine (LAMICTAL) 100 mg tablet Take 1 tablet by mouth once daily. start after completed 25mg tablets lamoTRIgine (LAMICTAL) 25 mg tablet take one 25mg tablet daily at bedtime for 2 weeks then take two 25mg tablets at bedtime for 2 weeks triamcinolone acetonide (KENALOG) 0.1 % cream Apply 1 application to affected area three times daily. Apply sparingly to area for rash/itching. sulfamethoxazole-trimethoprim (BACTRIM DS) 800-160 mg per tablet Take 1 tablet by mouth twice daily. ALBUTEROL SULFATE (VENTOLIN INHALATION) Inhale 2 Puffs as instructed as needed. Rescue inhaler CYCLOBENZAPRINE HCL (FLEXERIL ORAL) Take 10 mg by mouth as needed. NAPROXEN ORAL Take 500 mg by mouth as needed. montelukast 10 mg tablet Take 10 mg by mouth daily at bedtime. Review of Systems Constitutional: Negative for chills, fatigue and fever. Respiratory: Negative for shortness of breath and wheezing. Gastrointestinal: Negative for abdominal pain, constipation, diarrhea and nausea. Genitourinary: Negative for difficulty urinating, dysuria, flank pain, frequency, hematuria and urgency. Neurological: Negative for dizziness, light-headedness and headaches. Psychiatric/Behavioral: Negative for behavioral problems. The patient is not nervous/anxious. HISTORIES PAST MEDICAL HISTORY Diagnosis Date - Asthma - CAH (congenital adrenal hyperplasia) - Frequency of micturition - Heart stopped beating (HCC) 2005 post surgical 5-10 minutes - Incontinence of urine congenital - Insomnia - Migraine headache - Nocturia - Nocturnal enuresis - OAB (overactive bladder) - Urge incontinence - UTI (urinary tract infection) FAMILY HISTORY Problem Relation Age of Onset - Adopted: Yes - adopted [OTHER] Other Social History Substance Use Topics - Smoking status: Never Smoker - Smokeless tobacco: Never Used - Alcohol use No PHYSICAL EXAMINATION GENERAL APPEARANCE: Well appearing, alert, in no acute distress, well-hydrated, well nourished. PHYSICAL EXAM: Back: battery incision mildly tender, no erythema or exudate, incision closed. Midline incisions are inflamed, mildly erythematous, yellow d/c expressed, mildly tender. ASSESSMENT/PLAN: 1. OAB (overactive bladder) - ICD9: 596.51, ICD10: N32.81 (primary diagnosis) Keflex 2. Frequency of micturition - ICD9: 788.41, ICD10: R35.0 interstim Alyssa Weems PA-C Referring Provider: BASILIA CARABALLO [[id number]] Allergies As of Date: 11/02/2017 Noted Allergy Reaction ADVIL (IBUPROFEN) 09/29/2017 7 - Swelling IODINE 06/21/2015 9 - Itching Date Reviewed: 11/02/2017 Reviewed by: Alyssa Weems (Pa) - Fully Assessed Reason for Visit: Overactive Bladder [3577] Primary Visit Diagnosis:OAB (overactive bladder) [N32.81] Other Visit Diagnosis:Frequency of micturition [R35.0] Order(s):cephALEXin (KEFLEX) 500 mg capsuleTake 1 capsule by mouth three times daily for 7 days.Disp: 21 capsuleRfl: 0 Prescriptions as of 11/02/2017 Sig: CEPHALEXIN 500 MG CAPSULE Take 1 capsule by mouth three* TRAZODONE 50 MG TABLET Take 1 tablet by mouth at bed* GABAPENTIN 300 MG CAPSULE take one in morning and two c* LAMOTRIGINE 100 MG TABLET Take 1 tablet by mouth once d* LAMOTRIGINE 25 MG TABLET take one 25mg tablet daily at* TRIAMCINOLONE ACETONIDE 0.1 %* Apply 1 application to affect* SULFAMETHOXAZOLE 800 MG-TRIME* Take 1 tablet by mouth twice * VENTOLIN INHALATION Inhale 2 Puffs as instructed * FLEXERIL ORAL Take 10 mg by mouth as needed* NAPROXEN ORAL Take 500 mg by mouth as neede* MONTELUKAST 10 MG TABLET Take 10 mg by mouth daily at * Medication notes this encounter SULFAMETHOXAZOLE 800 MG-TRIMETHOPRIM 160 MG TABLET >> Alyssa Weems PA-C 11/02/2017 8:27 AM >> ALYSSA WEEMS SunNov 02, 2017 8:27 AM Problem List As Of Date 11/02/2017 Noted Resolved Asthma [J45.909] INVALID FOR* 1.1 Migraine without aura, not intractable [346*INVALID FOR* A1.1.2 menstrually-related migraine without aur*INVALID FOR* Adrenal hyperplasia [E27.8] INVALID FOR* Depression with anxiety [F41.8] INVALID FOR* CAH (congenital adrenal hypoplasia) [ULK1314] INVALID FOR* More... Congenital adrenal cortical hyperplasia (HCC) [*INVALID FOR* OAB (overactive bladder) [N32.81] INVALID FOR* Frequency of micturition [R35.0] INVALID FOR* Nocturnal enuresis [N39.44] INVALID FOR* Nocturia [R35.1] INVALID FOR* Prescriptions ordered this encounter Disp Refills Start End CEPHALEXIN 500 MG CAPSULE 21 c* 0 11/02/2017 11/09/2017 Route: ORAL Sig: Take 1 capsule by mouth three times daily for 7 days. Encounter Status:Closed by ALYSSA WEEMS on 11/02/17 Observed: 10/29/2017 Status: F Source: VIRGIN CULTURE, THROAT 2:00 PM [facility] REPOSITORY Culture, Throat Mixed normal throat jim. No Haemophilus, Streptococcus pneumoniae or beta-hemolytic Streptococcus isolated. ORGANISM 1: Staphylococcus aureus Amount Growth 3+ Staphylococcus aureus: REACTION Benzylpenicillin NF 0.06 R Cefoxitin *NF - Clindamycin $$ <=0.25 S Inducable Clindamycin Resistan - Erythromycin $ <=0.25 S Gentamicin $ <=0.5 S Levofloxacin $ <=0.12 S Linezolid $$$$ 2 S Moxifloxicin *NF <=0.25 S Oxacillin NF <=0.25 S Tigecycline $$$$ <=0.12 S Rifampin $$ <=0.5 S Tetracycline NF <=1 S Trimethoprim/Sulfametho $ <=10 S Vancomycin $ 1 S (NF) indicates non-formulary drug at [facility]. Approval by Infectious Disease Specialist required before non-formulary drugs may be ordered and/or dispensed. * CLSI guidelines does not recommend testing of cephalosporins. This interpretation is deduced from Beta-lactam/penicillin results. Performed By: #### M100.1000 #### [facility] [address] [place], [address] CT SOFT TISSUE NECK Observed: 10/26/2017 Status: F Source: RESTORATIONIST W/ CONTRAST 7:58 AM [facility] REPOSITORY Exam Date/Time: 10/26/2017 08:29 EDT Reason for Exam: NECK MASS GENERALIZED LYMPHADENOPATHY;Neck mass Report EXAM: CT SOFT TISSUE NECK W/CONTRAST CLINICAL STATEMENT: Enlarged lymph nodes. COMPARISON: None. TECHNIQUE: CT examination of the soft tissues of the neck following?the administration of 100 mL of Omnipaque 300 intravenous contrast. Coronal and sagittal reformations were performed. ? Dose reduction techniques were achieved by using automated exposure control and/or adjustment of mA and/or kV according to patient size and/or use of iterative reconstruction technique. FINDINGS: The visualized intracranial and orbital structures are unremarkable. Paranasal sinuses are clear. Parotid and submandibular glands are symmetric without focal lesion. The parapharyngeal fat planes are symmetric. There is symmetric fullness of the adenoids. Nasopharynx and oropharynx are unremarkable. Epiglottis is normal size and position. Prominent cervical lymph nodes are noted, the largest measuring approximately 2.5 x 1.5 cm transaxially in the left jugular chain. The largest in the right measures approximately 2.0 x 1.1 cm. No lucencies to suggest necrosis. A BB marker is noted over the posterior left neck. The largest node in this region measures approximately 1.4 x 0.7 cm. The thyroid is homogeneous. No additional soft tissue mass. Major cervical vasculature is patent. Lung apices are clear. Osseous structures appear intact. Cervical spine is within normal limits. IMPRESSION: Nonspecific left cervical lymphadenopathy. Considerations include reactive process or lymphoproliferative disorder. FINAL REPORT Dictated: 10/26/2017 1:05 pm Brett Garcia MD Signed (Electronic Signature): 10/26/2017 1:05 pm Signed by: Brett Garcia MD Technologist: SRH CBC W/ AUTO DIFF Collected: 10/19/2017 Status: F Source: RESTORATIONIST 4:06 PM [facility] REPOSITORY TYPE CODE TESTS RESULT OUT OF RANGE REFERENCE UNITS LAB [id number](L 3.6-11.0 E3/mcL OINC) Normal WBC 4.1 LAB [id number](L 3.90-5.40 E6/mcL OINC) Normal RBC 4.49 LAB 11822145(L 12.0-16.0 G/DL OINC) Normal Hgb 13.0 LAB 88173273(L 36.0-48.0 % OINC) Normal Hct 39.1 LAB [id number](L 11.5-14.5 % OINC) Normal RDW 14.0 LAB [id number](L 27.0-31.0 pg OINC) Normal MCH 29.0 LAB [id number](L 33.0-37.0 G/DL OINC) Normal MCHC 33.3 LAB [id number](L 78.0-100.0 fL OINC) Normal MCV 87.1 LAB [id number](L 7.4-11.0 fL OINC) Normal MPV 7.5 LAB [id number](L 130-400 E3/mcL OINC) Normal Platelet 243 Performed By: #### [id number] #### [facility] [address] [place] [address] AUTO DIFF Collected: 10/19/2017 Status: F Source: RESTORATIONIST 4:06 [facility] REPOSITORY Order Comment: Order Added by Discern Expert. TYPE CODE TESTS RESULT OUT OF RANGE REFERENCE UNITS LAB [id number](L 37.0-75.0 % OINC) Normal Neutro Auto 50.8 LAB [id number](L 20.0-55.0 % OINC) Normal Lymph Auto 33.2 LAB 18197009(L 0.0-10.0 % OINC) High [place] Auto 10.8 LAB 89706657(L 0.0-11.0 % OINC) Normal Eos Auto 4.4 LAB 79219021(L 0.0-2.0 % OINC) Normal Basophil Auto 0.8 LAB 98560857(L 1.4-6.5 E3/mcL OINC) Normal Neutro 2.1 Absolute LAB 46947093(L 1.2-3.4 E3/mcL OINC) Normal Lymph Absolute 1.4 LAB [id number](L 0.0-0.7 E3/mcL OINC) Normal [place] Absolute 0.4 LAB 92436804(L 0.0-0.7 E3/mcL OINC) Normal Eos Absolute 0.2 LAB 57735267(L 0.0-0.2 E3/mcL OINC) Normal Basophil 0.0 Absolute Performed By: #### [id number] #### [facility] [address] [place] [address] CMP Collected: 10/19/2017 Status: F Source: RESTORATIONIST 4:06 PM [facility] REPOSITORY TYPE CODE TESTS RESULT OUT OF RANGE REFERENCE UNITS LAB [id number](L 70-99 mg/dL OINC) Glucose Normal Lvl 85 LAB [id number](L 8.4-10.2 mg/dL OINC) Calcium Normal Lvl 9.0 LAB [id number](L 136-145 mEq/L OINC) Sodium Normal Lvl 138 LAB 93904405(L 3.5-5.1 mEq/L OINC) Normal Potassium Lvl 3.7 LAB 45091295(L 98-107 mEq/L OINC) Chloride Normal 102 LAB [id number](L 24.0-30.0 mEq/L OINC) CO2 Normal 27.5 LAB [id number](L 7-18 mg/dL OINC) BUN Normal 11 LAB 7671361(LO 0.6-1.3 mg/dL INC) Normal Creatinine 1.0 LAB [id number](L 42-121 Int._Unit/ OINC) L Alk Phos Normal 48 LAB 36319338(L 0.2-1.0 mg/dL OINC) Bili Normal Total 0.5 LAB [id number](L 3.2-5.0 G/DL OINC) Albumin Normal Lvl 4.1 LAB [id number](L 6.4-8.3 G/DL OINC) Total Normal Protein 7.4 LAB [id number](L 10-40 Int._Unit/ OINC) L ALT Normal 23 LAB 36612274(L 10-42 Int._Unit/ OINC) L AST Normal 34 LAB [id number](L 5.4-30.0 ratio OINC) Normal BUN/Creat Ratio 11.0 LAB 14994395(L 2.0-4.0 G/DL OINC) Globulin Normal 3.3 LAB [id number](L 1.1-1.9 ratio OINC) A/G Normal Ratio 1.2 Performed By: #### [id number] #### [facility] [place] [address] EGFR Collected: 10/19/2017 Status: F Source: RESTORATIONIST 4:06 PM [facility] REPOSITORY Order Comment: Order added by Discern Expert. TYPE CODE TESTS RESULT OUT OF RANGE REFERENCE UNITS LAB [id number](LO mL/min/1.73 INC) m2 Normal eGFR >60 LAB [id number](LO mL/min/1.73 INC) m2 Normal eGFR AA >60 Performed By: #### [id number] #### [facility] [address] [place] [address] XR CHEST 2 VIEWS Observed: 10/19/2017 Status: F Source: RESTORATIONIST 3:55 PM [facility] REPOSITORY Exam Date/Time: 10/19/2017 16:01 EDT Reason for Exam: Other (please specify) Report TWO-VIEW CHEST COMPARISON: Acute abdominal series from 07/19/2017. REASON FOR STUDY: Chest pain. REPORT: The lungs are clear and well aerated. Trachea, mediastinum and heart size are unremarkable no effusion or nodule or pneumothorax is noted. The diaphragm is intact. There is a slight to mild curvature of the midthoracic spine. IMPRESSION: Nonacute two-view chest. FINAL REPORT Dictated: 10/19/2017 9:36 pm Dante Torres DO Signed (Electronic Signature): 10/19/2017 9:36 pm Signed by: Dante Torres DO Technologist: AALIYAH PROGRESS Observed: 10/15/2017 Status: COMPLETED Source: [facility] 10:21 AM [facility]IC OTHER [facility] REPOSITORY HNO ID: [id number] Author: Amparo (Kole) KOLE Pond Service: (none) Author Type: Nurse Practitioner Type: Progress Notes Filed: 10/15/2017 10:53 AM Note Text: ESTABLISHED PATIENT OFFICE VISIT HISTORY OF PRESENT ILLNESS Fabi Crabtree is a 21 year old female who presents today in f/u of overactive bladder. Interstim revision 2 weeks ago. Patient states her symptoms are improved. Urgency is much better. She is voiding every 2-3 hours during the day. Nocturia now 1x per night, patient was voiding 8-10x per night prior to revision. No nocturnal enuresis now. Patient denies fever or chills, no dysuria. No gross hematuria. Her incision is healing well. Interstim checked: +3, -0 with amp set at 1.6. LAB RESULTS Creatinine Date Value Ref Range Status 12/06/2016 0.96 0.58 - 0.96 mg/dL Final No results found for: PSA Color (no units) Date Value 10/01/2014 Yellow Clarity (no units) Date Value 10/01/2014 Cloudy Glucose, Urine (mg/dL) Date Value 09/03/2017 neg Bilirubin, Urine (no units) Date Value 09/03/2017 neg Ketones, Urine (no units) Date Value 09/03/2017 neg Specific [place], Ur (no units) Date Value 09/27/2017 1.019 Hemoglobin/Blood,Ur (no units) Date Value 09/03/2017 neg pH, Urine (no units) Date Value 09/03/2017 6.0 Protein, Urine (mg/dL) Date Value 09/03/2017 neg Urobilinogen (no units) Date Value 10/01/2014 Normal Nitrites (no units) Date Value 09/03/2017 neg Leukest (no units) Date Value 10/01/2014 Negative MEDICATIONS: gabapentin (NEURONTIN) 300 mg capsule take one in morning and two capsules at night (given instructions how to titrate medication) lamoTRIgine (LAMICTAL) 100 mg tablet Take 1 tablet by mouth once daily. start after completed 25mg tablets lamoTRIgine (LAMICTAL) 25 mg tablet take one 25mg tablet daily at bedtime for 2 weeks then take two 25mg tablets at bedtime for 2 weeks triamcinolone acetonide (KENALOG) 0.1 % cream Apply 1 application to affected area three times daily. Apply sparingly to area for rash/itching. sulfamethoxazole-trimethoprim (BACTRIM DS) 800-160 mg per tablet Take 1 tablet by mouth twice daily. ALBUTEROL SULFATE (VENTOLIN INHALATION) Inhale 2 Puffs as instructed as needed. Rescue inhaler traZODone (DESYREL) 50 mg tablet Take 1 tablet by mouth at bedtime as needed. CYCLOBENZAPRINE HCL (FLEXERIL ORAL) Take 10 mg by mouth as needed. NAPROXEN ORAL Take 500 mg by mouth as needed. montelukast 10 mg tablet Take 10 mg by mouth daily at bedtime. REVIEW OF SYSTEMS GENERAL:No weight loss, malaise or fevers. RESPIRATORY: Negative for cough, wheezing or shortness of breath. GENITOURINARY: See HPI HISTORIES PAST MEDICAL HISTORY Diagnosis Date - Asthma - CAH (congenital adrenal hyperplasia) - Frequency of micturition - Heart stopped beating (HCC) 2005 post surgical 5-10 minutes - Incontinence of urine congenital - Insomnia - Migraine headache - Nocturia - Nocturnal enuresis - OAB (overactive bladder) - Urge incontinence - UTI (urinary tract infection) FAMILY HISTORY Problem Relation Age of Onset - Adopted: Yes - adopted [OTHER] Other PAST SURGICAL HISTORY Procedure Laterality Date - NERVE STIMULATOR,2 2005 bladder stimulator - NERVE STIMULATOR,2 2009 revised bladder stim - NERVE STIMULATOR,0003 07/2014 - NERVE STIMULATOR,0003 12/2014 - REVISE/REMOVE NEUROELECTRODE revision SOCIAL HISTORY Social History Substance Use Topics - Smoking status: Never Smoker - Smokeless tobacco: Never Used - Alcohol use No PHYSICAL EXAMINATION General appearance: Well appearing, alert, in no acute distress, well-hydrated, well nourished Respiratory: no wheezing or rhonchi ASSESSMENT/PLAN: 1. OAB (overactive bladder) - ICD9: 596.51, ICD10: N32.81 (primary diagnosis) 2. Frequency of micturition - ICD9: 788.41, ICD10: R35.0 3. Nocturia - ICD9: 788.43, ICD10: R35.1 Amparo Pond CNP CNOV Observed: 10/15/2017 Status: COMPLETED Source: [place] 10:15 AM CLINIC OTHER [place] REPOSITORY Office Visit (UROLAE) FABI CRABTREE ([id number]) 1995 F Date Time Provider Department 10/15/17 10:15 AM AMPARO POND (KOLE) RIANA During your visit today, we recorded the following information about you: Blood pressure Weight Height 107/68 68 kg 1.778 m Amparo Pond CNP, CNP 10/15/2017 10:53 AM Signed ESTABLISHED PATIENT OFFICE VISIT HISTORY OF PRESENT ILLNESS Fabi Crabtree is a 21 year old female who presents today in f/u of overactive bladder. Interstim revision 2 weeks ago. Patient states her symptoms are improved. Urgency is much better. She is voiding every 2-3 hours during the day. Nocturia now 1x per night, patient was voiding 8-10x per night prior to revision. No nocturnal enuresis now. Patient denies fever or chills, no dysuria. No gross hematuria. Her incision is healing well. Interstim checked: +3, -0 with amp set at 1.6. LAB RESULTS Creatinine Date Value Ref Range Status 12/06/2016 0.96 0.58 - 0.96 mg/dL Final No results found for: PSA Color (no units) Date Value 10/01/2014 Yellow Clarity (no units) Date Value 10/01/2014 Cloudy Glucose, Urine (mg/dL) Date Value 09/03/2017 neg Bilirubin, Urine (no units) Date Value 09/03/2017 neg Ketones, Urine (no units) Date Value 09/03/2017 neg Specific [place], Ur (no units) Date Value 09/27/2017 1.019 Hemoglobin/Blood,Ur (no units) Date Value 09/03/2017 neg pH, Urine (no units) Date Value 09/03/2017 6.0 Protein, Urine (mg/dL) Date Value 09/03/2017 neg Urobilinogen (no units) Date Value 10/01/2014 Normal Nitrites (no units) Date Value 09/03/2017 neg Leukest (no units) Date Value 10/01/2014 Negative MEDICATIONS: gabapentin (NEURONTIN) 300 mg capsule take one in morning and two capsules at night (given instructions how to titrate medication) lamoTRIgine (LAMICTAL) 100 mg tablet Take 1 tablet by mouth once daily. start after completed 25mg tablets lamoTRIgine (LAMICTAL) 25 mg tablet take one 25mg tablet daily at bedtime for 2 weeks then take two 25mg tablets at bedtime for 2 weeks triamcinolone acetonide (KENALOG) 0.1 % cream Apply 1 application to affected area three times daily. Apply sparingly to area for rash/itching. sulfamethoxazole-trimethoprim (BACTRIM DS) 800-160 mg per tablet Take 1 tablet by mouth twice daily. ALBUTEROL SULFATE (VENTOLIN INHALATION) Inhale 2 Puffs as instructed as needed. Rescue inhaler traZODone (DESYREL) 50 mg tablet Take 1 tablet by mouth at bedtime as needed. CYCLOBENZAPRINE HCL (FLEXERIL ORAL) Take 10 mg by mouth as needed. NAPROXEN ORAL Take 500 mg by mouth as needed. montelukast 10 mg tablet Take 10 mg by mouth daily at bedtime. REVIEW OF SYSTEMS GENERAL:No weight loss, malaise or fevers. RESPIRATORY: Negative for cough, wheezing or shortness of breath. GENITOURINARY: See HPI HISTORIES PAST MEDICAL HISTORY Diagnosis Date - Asthma - CAH (congenital adrenal hyperplasia) - Frequency of micturition - Heart stopped beating (HCC) 2005 post surgical 5-10 minutes - Incontinence of urine congenital - Insomnia - Migraine headache - Nocturia - Nocturnal enuresis - OAB (overactive bladder) - Urge incontinence - UTI (urinary tract infection) FAMILY HISTORY Problem Relation Age of Onset - Adopted: Yes - adopted [OTHER] Other PAST SURGICAL HISTORY Procedure Laterality Date - NERVE STIMULATOR,2 2005 bladder stimulator - NERVE STIMULATOR,2 2009 revised bladder stim - NERVE STIMULATOR,07/2014 - NERVE STIMULATOR,12/2014 - REVISE/REMOVE NEUROELECTRODE revision SOCIAL HISTORY Social History Substance Use Topics - Smoking status: Never Smoker - Smokeless tobacco: Never Used - Alcohol use No PHYSICAL EXAMINATION General appearance: Well appearing, alert, in no acute distress, well-hydrated, well nourished Respiratory: no wheezing or rhonchi ASSESSMENT/PLAN: 1. OAB (overactive bladder) - ICD9: 596.51, ICD10: N32.81 (primary diagnosis) 2. Frequency of micturition - ICD9: 788.41, ICD10: R35.0 3. Nocturia - ICD9: 788.43, ICD10: R35.1 Amparo Pond CNP Referring Provider: BASILIA CARABALLO [[id number]] Allergies As of Date: 10/15/2017 Noted Allergy Reaction ADVIL (IBUPROFEN) 09/29/2017 7 - Swelling IODINE 06/21/2015 9 - Itching Date Reviewed: 10/15/2017 Reviewed by: Amparo (Kole) KOLE Pond - Fully Assessed Reason for Visit: Interstim [Other] Cmt: Pt says oab sxs are better after revision. Primary Visit Diagnosis:OAB (overactive bladder) [N32.81] Other Visit Diagnoses:Frequency of micturition [R35.0] Nocturia [R35.1] Prescriptions as of 10/15/2017 Sig: GABAPENTIN 300 MG CAPSULE take one in morning and two c* LAMOTRIGINE 100 MG TABLET Take 1 tablet by mouth once d* LAMOTRIGINE 25 MG TABLET take one 25mg tablet daily at* TRIAMCINOLONE ACETONIDE 0.1 %* Apply 1 application to affect* SULFAMETHOXAZOLE 800 MG-TRIME* Take 1 tablet by mouth twice * VENTOLIN INHALATION Inhale 2 Puffs as instructed * TRAZODONE 50 MG TABLET Take 1 tablet by mouth at bed* FLEXERIL ORAL Take 10 mg by mouth as needed* NAPROXEN ORAL Take 500 mg by mouth as neede* MONTELUKAST 10 MG TABLET Take 10 mg by mouth daily at * Medication notes this encounter SULFAMETHOXAZOLE 800 MG-TRIMETHOPRIM 160 MG TABLET >> Gastonpaz Ritter CMA 10/15/2017 10:17 AM >> GASTON RITTER CMA Oct 15, 2017 10:17 AM Not taking Problem List As Of Date 10/15/2017 Noted Resolved Asthma [J45.909] INVALID FOR* 1.1 Migraine without aura, not intractable [346*INVALID FOR* A1.1.2 menstrually-related migraine without aur*INVALID FOR* Adrenal hyperplasia [E27.8] INVALID FOR* Depression with anxiety [F41.8] INVALID FOR* CAH (congenital adrenal hypoplasia) [EAL5530] INVALID FOR* More... Congenital adrenal cortical hyperplasia (HCC) [*INVALID FOR* OAB (overactive bladder) [N32.81] INVALID FOR* Frequency of micturition [R35.0] INVALID FOR* Nocturnal enuresis [N39.44] INVALID FOR* Nocturia [R35.1] INVALID FOR* Disposition: Return in about 6 months (around 04/17/2018). Follow-up and Disposition History Recorded Encounter Status:Closed by AMPARO POND on 10/15/17 PROGRESS Observed: 10/10/2017 Status: COMPLETED Source: [place] 9:59 AM [facility] [place] REPOSITORY HNO ID: [id number] Author: Eliseo (Nutrition Assistant) Casey Service: (none) Author Type: Nurse Practitioner Type: Progress Notes Filed: 10/10/2017 12:13 PM Note Text: PSYCHIATRIC PROGRESS NOTE CC: I could not take the Zoloft. HPI: Fabi reports she was feeling very irritable when taking Zoloft; took for about 4 weeks. Had been ordered Zoloft and Trazodone to target anxiety and depressive symptoms; she had some suicidal thoughts during first week of taking the medication. She did have some symptoms indicating possible hypomania in past such as extreme irritability, mood swings, risky behaviors (taking risks when riding horses), in past has had high energy periods and has had a suicide attempt as a teen. Currently sleep is not great; typically takes 1/2 -one hour to fall asleep and averaging 3-4 hours per night. She has nightmares 1-2 times per week (rarely about past trauma) and usually about things she has been worrying about; often can't fall back to sleep after has the nightmare. She denies si/hi. She would like to feel less irritable, less anxious (racing thoughts) and would like to feel more hopeful about things. Discussion of treatment options: Lamictal titration to 100mg ordered and Gabapentin titration given to 300mg in am and 2 at hs to target anxiety symptoms; Risks and benefits of the medication, including any black box warnings, were discussed with the patient. PAST MEDICAL HISTORY Diagnosis Date - Asthma - CAH (congenital adrenal hyperplasia) - Frequency of micturition - Heart stopped beating (HCC) 2005 post surgical 5-10 minutes - Incontinence of urine congenital - Insomnia - Migraine headache - Nocturia - Nocturnal enuresis - OAB (overactive bladder) - Urge incontinence - UTI (urinary tract infection) PAST SURGICAL HISTORY Procedure Laterality Date - NERVE STIMULATOR,2 2005 bladder stimulator - NERVE STIMULATOR,2 2009 revised bladder stim - NERVE STIMULATOR,0003 07/2014 - NERVE STIMULATOR,0003 12/2014 ROS: GENERAL: Negative for malaise, significant weight loss and fever HEENT: No changes in hearing or vision, no nose bleeds or other nasal problems NECK: Negative for lumps, goiter, pain and significant neck swelling RESPIRATORY: Negative for cough, wheezing and shortness of breath CARDIOVASCULAR: Negative for chest pain, leg swelling and palpitations GI: Negative for abdominal discomfort, blood in stools or black stools : Negative for dysuria, frequency and incontinence ASSISTANT CHIEF OF POLICE: Negative for abnormal vaginal bleeding, abnormal vaginal discharge MUSCULOSKELETAL: Negative for joint pain or swelling, back pain, and muscle pain. SKIN: Negative for lesions, rash, and itching. PSYCH: See HPI HEMATOLOGY/LYMPHOLOGY Negative for prolonged bleeding, bruising easily, and swollen nodes. ENDOCRINE: Negative for cold or heat intolerance, polyuria, polydipsia and goiter. NEURO: Negative VITAL SIGNS: 10/10/17 0957 BP: 118/72 Pulse: 82 SpO2: 98% Weight: 69.4 kg (153 lb) Height: 177.8 cm (5' 10) Interval Progress: Same SINGLE ORGAN PSYCH EXAM: CONSTITUTIONAL: Well groomed MUSCULOSKELETAL: Gait: Normal PAIN: 0 PSYCHIATRIC: Speech: Clear AND distinct Language: Normal Associations: Intact Thought Process: Logical, Coherent and Rational Progression: There was no evidence of disturbance in thought perception or progression. Fund of Knowledge: Appropriate and Adequate MENTAL STATUS EXAM: ORIENTATION: Person, Place, Time and Situation MEMORY: Recent intact, Remote intact, Immediate intact CONCENTRATION: Anxiety interferes MOOD: depressed AFFECT: Restricted SUICIDE: None HOMICIDE: None PFSH: see hpi DATA REVIEWED: PHQ-9- (moderate) and was (severe depression) DIANNA-7-14 (moderate) and was 18 (severe anxiety) TREATMENT PLAN: initiate Lamictal titration: take one 25mg tablet daily at bedtime for 2 weeks then take two 25mg tablets at bedtime for 2 weeks. Then start 100mg Lamictal tablets at bedtime after 25mg tablets are completed; take one 100mg tablet at bedtime. Stop this medication if rash develops and call this provider. ? Watch for any new skin rash, skin blisters, redness/blistering in lips or around eyes. ? Call us and notify in case of these adverse effects. ? You should be seen by a doctor if you notice these changes. ? If determined to be medication induced, you may need an alternate medicine. Gabapentin 300mg tonight at bedtime then take one twice per day 10/11 on 10/12 start 300mg in morning and two 300mg capsules at bedtime and continue Can take 50mg Trazodone as needed for sleep after first week adjusting to gabapentin follow up in 6 weeks MEDICATION CHANGES: see treatment plan PSYCHIATRY APPOINTMENT: E/M Visit-Pharmacological Management DIAGNOSIS: 2. PRIMARY: Mood Disorder Major Depressive Disorder, Recurrent, with mixed features 3. Generalized anxiety disorder GAF: 53 -60-51 Moderate symptoms or moderate difficulty in social, occupational or school functioning. Follow Up: see treatment plan Medication/allergies reconciled SIGNATURE: Eliseo Peña CNP PATIENT NAME: Fabi Crabtree DATE: October 10, 2017 TIME: 9:59 AM PAGER/CONTACT #: [email or web address] Observed: 10/01/2017 Status: COMPLETED Source: [facility] 12:00 AM CLINIC OTHER CAMPUS REPOSITORY Letter Text [facility] [place] General Urology * Pediatric Urology * Renovascular Surgery * Renal and Pancreas Transplantation * Urologic Oncology Adrenal Surgery * Laproscopic Surgery * Erectile Surgery * Prosthetic Surgery and Genitourethral Reconstruction Laboratory Research * Male Infertility * Calculus Disease * Female Urology and Voiding Dysfunction Franklyn Aragon MD [address] [place] [address] 10/01/2017 RE: Fabi Crabtree To Whom It May Concern, This is to certify that Fabi Crabtree has been under my care for a medical condition and was unable to work.. The patient may return to work on 2017with No Restrictions. Please do not hesitate to contact me with any questions or concerns that may arise. Sincerely yours, Franklyn Aragon MD PROGRESS Observed: 09/29/2017 Status: COMPLETED Source: [facility] 2:31 PM [facility] MA[facility] C[facility] REPOSITORY HNO ID: [id number] Author: Ashtyn Trejo) Sandip Service: (none) Author Type: Nurse Practitioner Type: Progress Notes Filed: 09/29/2017 2:40 PM Note Text: Subjective HPI HPI Fabi Crabtree is a 21 year old female who presents today for CC of a itchy rash. This started yesterday, she is allergic to iodine, and states it was used to have her stim wires replaced. She has tried benedryl and cortisone without relief. 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) Oab (Overactive Bladder) Frequency of Micturition Nocturnal Enuresis Nocturia Family History Problem Relation Age of Onset - Adopted: Yes - adopted [OTHER] Other Social History Marital status: Single Spouse name: Years of education: Number of children: 0 Social History Main Topics Smoking status: Never Smoker Smokeless status: Never Used Alcohol use: No Drug use: No Sexual activity: Not Currently Other Topics Concern Service No Blood Transfusions No Caffeine Concern No Occupational Exposure No Hobby Hazards No Sleep Concern Yes Comment:Insomnia Stress Concern No Weight Concern No Special Diet No Back Care No Exercise Yes Comment:Running 1x week Bike Helmet No Seat Belt Yes Self-Exams Yes Review of Systems Constitutional: Negative for chills, fever and malaise/fatigue. Genitourinary: Negative for dysuria. Musculoskeletal: Negative for joint pain and myalgias. Skin: Positive for rash. Neurological: Negative for headaches. Objective Physical Exam Constitutional: She is oriented to person, place, and time and well-developed, well-nourished, and in no distress. No distress. HENT: Head: Normocephalic and atraumatic. Eyes: Conjunctivae and EOM are normal. Pupils are equal, round, and reactive to light. Neck: Normal range of motion. Neck supple. Pulmonary/Chest: Effort normal. Neurological: She is alert and oriented to person, place, and time. Skin: Skin is warm and dry. Rash noted. Rash is papular. There is erythema (pruritic). Psychiatric: Affect normal. Nursing note and vitals reviewed. ASSESSMENT/PLAN: 1. Rash - ICD9: 782.1, ICD10: R21 Appears to be an allergic reaction to idodine - Benedryl 25 every 6 hours - Zyrtec 10 mg By mouth daily at bedtime - TRIAMCINOLONE ACETONIDE 0.1 % TOPICAL CREAM Diagnosis and treatment plan were discussed and questions were answered to the patient's satisfaction. Pt acknowledged understanding of concepts and follow up plan. Specific signs and symptoms that would indicate the need for higher level of care were discussed in detail warranting prompt ER evaluation. Ashtyn Oropeza CNP FLUORO UP TO 1 HOUR Observed: 09/27/2017 Status: F Source: [facility] 1:07 PM HEALTH SYSTEM REPOSITORY Performed at [facility] APPROVED BY: Buster Mcclellan MD IMPRESSION: 50 seconds of fluoroscopy time was utilized for this exam. ANES POST Observed: 09/27/2017 Status: COMPLETED Source: [facility] 12:30 PM CLINIC OTHER CAMPUS REPOSITORY O ID: [id number] Author: Chencho Shipley Service: Anesthesiology Author Type: Physician Type: Anesthesia PostOp Filed: 09/27/2017 1:55 PM Note Text: POST ANESTHESIA EVALUATION NOTE SERVICE DATE: 09/27/2017 SERVICE TIME: 1:55 PM : 1995 Vitals: 09/27/17 0924 09/27/17 1111 09/27/17 1153 Temp: 36.7 ?C (98.1 ?F) 36.3 ?C (97.3 ?F) 36.3 ?C (97.3 ?F) 09/27/17 1111 09/27/17 1115 09/27/17 1130 09/27/17 1145 BP: 134/81 131/71 132/82 125/69 09/27/17 1111 09/27/17 1115 09/27/17 1130 09/27/17 1145 Pulse: 74 75 74 72 09/27/17 1111 09/27/17 1115 09/27/17 1130 09/27/17 1145 Resp: 18 20 17 17 09/27/17 1111 09/27/17 1115 09/27/17 1130 09/27/17 1145 SpO2: 100% 97% 99% 98% Validated Vital Signs: Yes POST ANES STATUS: No apparent anesthetic complications. The patient is appropriately hydrated with stable respiratory and cardiovascular status. Patient has safe and adequate airway control. The patient has appropriate pain relief and no significant post operative nausea or vomiting. The patient has achieved baseline mental status. Further assessment by Anesthesia Service: None Other Remarks: SIGNATURE: Chencho Shipley MD PATIENT NAME: Fabi Crabtree DATE: September 27, 2017 TIME: 1:55 PM PAGER/CONTACT #: [id number] NURSING PROG Observed: 09/27/2017 Status: COMPLETED Source: [place] 11:22 AM [facility] OTHER [place] REPOSITORY HNO ID: [id number] Author: Jennyfer AnnRn) VARGAS Gan Service: (none) Author Type: Registered Nurse Type: Nursing Progress Note Filed: 09/27/2017 11:22 AM Note Text: medtronic rep at bedside to initiate device BRIEF OP NOT Observed: 09/27/2017 Status: COMPLETED Source: [place] 11:12 AM [facility] OTHER [place] REPOSITORY HNO ID: [id number] Author: Franklyn Aragon Service: Urology Author Type: Physician Type: Brief Op Note Filed: 09/27/2017 2:22 PM Note Text: UROLOGY BRIEF OPERATIVE NOTE Date: 09/27/2017 Patient Name: Fabi Crabtree Date of : 1995 Surgeon: Amari Filling Station Equipment Mechanic: Nils Neri MD Anesthesia: General Preop Diagnosis: urgency Postop Diagnosis: Same Procedure: Interstim lead and generator placement with fluoroscopic needle guidance and programming Estimated Blood Loss: <50cc Findings: See OP note Specimens: none Complications: None SIGNATURE: Nils Neri MD PATIENT NAME: Fabi Crabtree DATE: September 27, 2017 TIME: 11:12 AM PAGER/CONTACT #: [email or web address] MIN 2 Observed: 09/27/2017 Status: F Source: [email or web address] 11:00 AM HEALTH SYSTEM REPOSITORY Performed at [facility] APPROVED BY: Keyshawn Jackson MD EXAM TITLE:SACRUM/COCCYX MIN 2 VIEWS DATE:09/27/2017 10:00 COMPARISON: 12/03/2014 CLINICAL INDICATION/HISTORY: Urinary incontinence TECHNIQUE: 2 spot images and 50 seconds of fluoroscopic time IMPRESSION: Placement of a left side transforaminal presacral lead. URINE HCG, QUAL. Collected: 09/27/2017 Status: F Source: [facility] (f. [facility]) [facility] 9:50 AM HEALTH SYSTEM REPOSITORY TYPE CODE TESTS RESULT OUT OF REFERENCE UNITS RANGE LAB URHCG(LOIN Negative C) HCG, Qual. Negative Urine LAB SPGR(LOINC 1.005-1.030 ) Specific 1.019 [place], Ur Performed By: #### HCGUR #### [place] [address] HISTORY PHYSICAL Observed: 09/27/2017 Status: COMPLETED Source: [facility] 9:31 AM CLINIC OTHER CAMPUS REPOSITORY HNO ID: [id number] Author: Isma Castellon Service: General Surgery Author Type: Nurse Practitioner Type: HANDP Filed: 09/27/2017 9:40 AM Note Text: HISTORY AND PHYSICAL EXAMINATION SERVICE DATE: 09/27/2017 SERVICE TIME: 9:31 AM PRIMARY CARE PHYSICIAN: Basilia Caraballo MD REASON FOR VISIT: Fabi Crabtree is a 21 year old female who is scheduled for Procedure(s): INTERSTIM LEAD REPLACEMENT (N/A) REMOVE BLADDER STIMULATOR GENERATOR (N/A) at the request of for routine HANDP. 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 Was born pre-mature and bladder didn't develop at . This is the 5 bladder procedure since . Had the Interstim placed 12 years ago and it stopped working 4 months ago. + incontinence and + overactive bladder. Denies Hematuria. LMP 2/ . Denies any other problems or concerns at this time. Discussed the risks and benefits of the procedure with the surgeon and agreed to proceed. PAST MEDICAL HISTORY Diagnosis Date - Asthma - CAH (congenital adrenal hyperplasia) - Frequency of micturition - Heart stopped beating (HCC) 2005 post surgical 5-10 minutes - Incontinence of urine congenital - Insomnia - Migraine headache - Nocturia - Nocturnal enuresis - OAB (overactive bladder) - Urge incontinence - UTI (urinary tract infection) PAST SURGICAL HISTORY Procedure Laterality Date - NERVE STIMULATOR,0003 2005 bladder stimulator - NERVE STIMULATOR,0003 2009 revised bladder stim - NERVE STIMULATOR,0003 07/2014 - NERVE STIMULATOR,0003 12/2014 FAMILY HISTORY Problem Relation Age of Onset - Adopted: Yes - adopted [OTHER] Other SOCIAL HISTORY: Social History Marital status: Single Spouse name: Years of education: Number of children: 0 Social History Main Topics Smoking status: Never Smoker Smokeless status: Never Used Alcohol use: No Drug use: No Sexual activity: Not Currently Other Topics Concern Service No Blood Transfusions No Caffeine Concern No Occupational Exposure No Hobby Hazards No Sleep Concern Yes Comment:Insomnia Stress Concern No Weight Concern No Special Diet No Back Care No Exercise Yes Comment:Running 1x week Bike Helmet No Seat Belt Yes Self-Exams Yes Prior to Admission medications as of 09/27/17 0918 Medication Sig Last Dose Taking ALBUTEROL SULFATE (VENTOLIN INHALATION) Inhale 2 Puffs as instructed as needed. Rescue inhaler 08/20/2017 Yes traZODone (DESYREL) 50 mg tablet Take 1 tablet by mouth at bedtime as needed. 09/13/2017 Yes sertraline (ZOLOFT) 50 mg tablet take 1/2 tablet daily for 2 weeks then increase to one tablet daily 09/13/2017 Yes CYCLOBENZAPRINE HCL (FLEXERIL ORAL) Take 10 mg by mouth as needed. 09/20/2017 Yes montelukast 10 mg tablet Take 10 mg by mouth daily at bedtime. Unknown at Unknown time Yes NAPROXEN ORAL Take 500 mg by mouth as needed. 09/13/2017 No medication comments found. ALLERGIES Allergen Reactions - Iodine Itching REVIEW OF SYSTEMS: PAIN ASSESSMENT: Pain Pain Score: 0/10 Acceptable level: 7 Pain Assessment (RN/MATCHER): Assessment Intervention: Medication Tool: Verbal (Numeric Rating or Visual Analog Scale) General: Denies fever, chills, and unexpected weight change. Neuro: Denies dizziness and headaches. Respiratory: Denies SOB. Cardiovascular: Denies CP and palpitations. GI: Denies abd pain and N/V/C. : Denies dysuria. ASS[employer]: Denies abnormal vaginal bleeding. Endocrine: No history of diabetes or thyroid conditions. Hematology: Denies history of bleeding or clotting disorder. No known autoimmune disorders. Psych: Denies anxiety/depression. Musculoskeletal: Denies joint pain and swelling. Skin: Denies open sores and rashes. Objective PHYSICAL EXAM: VITALS: BP 130/84 Pulse 72 Temp (Src) 98.1 (Tympanic) Resp 16 Ht 5' 10 (1.78m) Wt 151 lb 14.4 oz (68.9kg) SpO2 100% BMI 21.79 kg/(m2). General: NAD. Cooperative. Skin: Skin is warm, no rashes, and no open sores. HEENT: Normocephalic. Cardiovascular: Normal S1 AND S2. No murmur. Lungs: CTA Bilaterally. No respiratory distress. Abdomen: Soft. Extremities: No edema. Neurological: Alert and oriented to person, place, and time. Pulses: radial pulses +2 Diagnostic tests reviewed for today's visit[place] [facility] results Assessment/Plan There is no known pertinent medical condition which may affect lorin-operative course METS: Run a short distance (8.00 METs) ANESTHESIA FINDINGS: Intubation History: No history of difficult intubation Significant Anesthesia Considerations: No Problems with anesthesia just had a cardiac arrest episode 10+ years ago during INTERSTIM placement. Spoke to anesthesia regarding the issue only records found was a possible seizure episode, close monitoring by anesthesia. PLAN Planned Procedure: Procedure(s): INTERSTIM LEAD REPLACEMENT (N/A) REMOVE BLADDER STIMULATOR GENERATOR (N/A) CONSULTS: Patient does not require consults for optimization at this time. Planned Anesthetic: MAC Instructions Given to Patient: Patient given verbal and written preop instructions and voices comprehension and compliance. SIGNATURE: Isma Castellon APRN PATIENT NAME: Fabi Crabtree DATE: September 27, 2017 TIME: 9:40 AM PAGER/CONTACT #: ANES PREOP Observed: 09/27/2017 Status: COMPLETED Source: [facility] 9:13 AM [facility] OTHER CAMPUS REPOSITORY O ID: [id number] Author: Nils Hood Service: Anesthesiology Author Type: Physician Type: Anesthesia PreOp Filed: 09/27/2017 9:14 AM Note Text: ANESTHESIOLOGY DAY OF SURGERY NOTE SERVICE DATE: 09/27/2017 SERVICE TIME: 9:13 AM : 1995 Procedure(s) (LRB): INTERSTIM LEAD REPLACEMENT (N/A) REMOVE BLADDER STIMULATOR GENERATOR (N/A) Surgeon(s): Franklyn Wray (Res) [facility] Estimated body mass index is 21.79 kg/(m2) as calculated from the following: Height as of this encounter: 177.8 cm (5' 10). Weight as of this encounter: 68.9 kg (151 lb 14.4 oz). 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) Oab (Overactive Bladder) Frequency of Micturition Nocturnal Enuresis Nocturia PAST MEDICAL HISTORY Diagnosis Date - Asthma - CAH (congenital adrenal hyperplasia) - Frequency of micturition - Heart stopped beating (HCC) 2005 post surgical 5-10 minutes - Incontinence of urine congenital - Insomnia - Migraine headache - Nocturia - Nocturnal enuresis - OAB (overactive bladder) - Urge incontinence - UTI (urinary tract infection) PAST SURGICAL HISTORY Procedure Laterality Date - NERVE STIMULATOR,0003 2005 bladder stimulator - NERVE STIMULATOR,0003 2009 revised bladder stim - NERVE STIMULATOR,0003 07/2014 - NERVE STIMULATOR,0003 12/2014 FAMILY HISTORY Problem Relation Age of Onset - Adopted: Yes - adopted [OTHER] Other Social History: Social History Substance Use Topics - Smoking status: Never Smoker - Smokeless tobacco: Never Used - Alcohol use No No current facility-administered medications on file prior to encounter. Current Outpatient Prescriptions on File Prior to Encounter: traZODone (DESYREL) 50 mg tablet Take 1 tablet by mouth at bedtime as needed. sertraline (ZOLOFT) 50 mg tablet take 1/2 tablet daily for 2 weeks then increase to one tablet daily CYCLOBENZAPRINE HCL (FLEXERIL ORAL) Take 10 mg by mouth as needed. fluticasone 110 mcg/actuation inhaler Inhale 1 Puff as instructed twice daily. montelukast 10 mg tablet Take 10 mg by mouth daily at bedtime. NAPROXEN ORAL Take 500 mg by mouth as needed. No current facility-administered medications for this encounter. Allergies: ALLERGIES Allergen Reactions - Iodine Itching DOS EXAM: Adequate NPO status: Yes Anesthetic risks, benefits, alternatives, personnel and consent discussed: Yes Patient agrees to proceed: Yes Previous Anesthesia: No history of adverse event. Airway Assessment: MP 2; Neck ROM: Full ROM without neurologic symptoms; Airway Evaluation: No significant abnormalities Symptoms of Sleep Apnea: None Dentition: Teeth intact Additional Physical Exam: Lungs: Patient health status unchanged since recent history and physical. See history and physical for exam findings. Cardiac: Patient health status unchanged since recent history and physical. See history and physical for exam findings. Additional Pertinent Findings: N/A Blood Products: Not anticipated for this procedure. Anesthetic Plan: MAC with Sedation Pain Management Plan: Parenteral or Oral ASA Class: 3 Other Medical Problems: None Chronic Beta Robert medication administered within 24 hours: N/A I have interviewed and examined the patient. I have reviewed the medical record and/or the pre-anesthesia evaluation, pertinent labs, and test results. Significant changes in the patient's condition since the History and Physical, not otherwise documented in primary service progress notes: No This contains updated information obtained within 48 hours of Surgery/Procedure. SIGNATURE: Nils Hood MD PATIENT NAME: Fabi Crabtree DATE: September 27, 2017 TIME: 9:13 AM CSN: [id number] OPERATIVE NO Observed: 09/27/2017 Status: COMPLETED Source: [facility] 12:00 AM CLINIC OTHER CAMPUS REPOSITORY O ID: [id number] Author: Franklyn Aragon Service: Urology Author Type: Physician Type: Operative Report Filed: 09/27/2017 2:20 PM Note Text: [facility] - Operative Report SURGEON: Franklyn Aragon MD PATIENT NAME: FABI CRABTREE CSN: [id number] DATE OF SURGERY: 09/27/2017 DATE OF : 1995 SEX/AGE: F/21 PATIENT TYPE: A HOSP SVC: UROL LOCATION: [facility] DATE OF SURGERY: 09/27/2017 SURGEON: Franklyn Aragon MD PREOPERATIVE DIAGNOSES: Urinary frequency, urgency, urge incontinence. POSTOPERATIVE DIAGNOSES: Urinary frequency, urgency, urge incontinence. PROCEDURE: S3 neuromodulation, placement of InterStim lead and placement of new generator along with programming and fluoroscopic guidance for needle placement. TAX EXPERT: Nils Neri MD. ANESTHESIA: MAC and local. EBL: Minimal. FLUIDS: Crystalloid. HISTORY: The patient is a 21-year-old female who presents with refractory overactive bladder and urge incontinence, who has had an InterStim in for approximately 15 years, who has generator at end of life and a lead with impedances over 4000, who now presents for a new generator and a new lead placement. DESCRIPTION OF PROCEDURE: The patient was taken to the operating room, placed on IV sedation in prone position, prepped and draped in normal sterile fashion. A 1% lidocaine with epinephrine was injected in the region of the old and new pathways for the lead and in the region of the lateral pocket. A 3.5-inch Finder needle was then used with the assistance of fluoroscopy to identify the S3 foramen. The finder needle was able to be located in the foramen, and manav and big toe response was identified. The lateral pocket was opened. Dissection was carried down to the generator. The old generator was removed. Incision was made over the old lead site and the old lead was removed in its entirety. Where the new insertion place was identified, the guidewire was passed. Skin incision was made percutaneously. Introducer was passed. Lead was then positioned in good result in all 4 electrodes. Lead was tunneled to the lateral pocket. Gloves were changed. Irrigation was performed. The new generator was placed in the pocket. Impedance and programming were checked and all were normal. Closure was then performed with 3-0 Vicryl. Skin was closed with 4-0 Vicryl. Skin glue was applied. Dry sterile dressings were applied. She was awakened and returned to recovery room in good condition. Franklyn Aragon MD Urology RAB:porfirio /[id number] [place] Observed: 09/14/2017 Status: COMPLETED Source: [facility] 12:00 AM CLINIC OTHER CAMPUS REPOSITORY Telephone (UROLAE) FABI CRABTREE ([id number]) 1995 F Date Time Provider Department 09/14/17 FRANKLYN ARAGON During your visit today, we recorded the following information about you: Josie Multani 09/14/2017 7:41 AM Signed Patient was told she would have rec'd a call regarding her surgery already this week, would you be able to call and schedule her for the revision? Thank you Josie [facility] 09/14/2017 7:48 AM Signed It is already scheduled for 09-27-17. It is on her appointment desk. Thanks Nicolasa Multani 09/14/2017 11:33 AM Signed Thank you. Josie Multani Allergies As of Date: 09/14/2017 Noted Allergy Reaction IODINE 06/21/2015 9 - Itching Date Reviewed: 09/05/2017 Reviewed by: Eliseo ([facility]) Casey - Fully Assessed Reason for Visit: surgery [Other] Prescriptions as of 09/14/2017 Sig: TRAZODONE 50 MG TABLET Take 1 tablet by mouth at bed* SERTRALINE 50 MG TABLET take 1/2 tablet daily for 2 w* FLEXERIL ORAL Take by mouth. NAPROXEN ORAL Take by mouth. FLUTICASONE 110 MCG/ACTUATION* Inhale 1 Puff as instructed t* MONTELUKAST 10 MG TABLET Take 10 mg by mouth daily at * Problem List As Of Date 09/14/2017 Noted Resolved Asthma [J45.909] INVALID FOR* 1.1 Migraine without aura, not intractable [346*INVALID FOR* A1.1.2 menstrually-related migraine without aur*INVALID FOR* Adrenal hyperplasia [E27.8] INVALID FOR* Depression with anxiety [F41.8] INVALID FOR* CAH (congenital adrenal hypoplasia) [JEC4282] INVALID FOR* More... Congenital adrenal cortical hyperplasia (HCC) [*INVALID FOR* OAB (overactive bladder) [N32.81] INVALID FOR* Frequency of micturition [R35.0] INVALID FOR* Nocturnal enuresis [N39.44] INVALID FOR* Nocturia [R35.1] INVALID FOR* Encounter Status:Closed by JOSIE TOBIN on 09/14/17 HOSP Observed: 09/13/2017 Status: COMPLETED Source: [facility] 12:00 AM CLINIC OTHER CAMPUS REPOSITORY Patient:Fabi Crabtree MRN: <[id number]> Height:5' 10(1.778 m) Weight:151 lb 14.4 oz (68.9 kg) Outpatient Medications as of 09/27/17: ALBUTEROL SULFATE (VENTOLIN INHALATION) traZODone (DESYREL) 50 mg tablet sertraline (ZOLOFT) 50 mg tablet CYCLOBENZAPRINE HCL (FLEXERIL ORAL) NAPROXEN ORAL montelukast 10 mg tablet Admission/Clinic Administered Medications as of 09/27/17: ceFAZolin injection (ANCEF, KEFZOL) lidocaine 1%-EPINEPHrine 1:100,000 injection Problem List: Asthma [J45.909] 1.1 Migraine without aura, not intractable [346.10] [G43.009] A1.1.2 menstrually-related migraine without aura[346.41] [G43.839] Adrenal hyperplasia (HCC) [E27.8] Depression with anxiety [F41.8] CAH (congenital adrenal hypoplasia) [GLQ8413] Congenital adrenal cortical hyperplasia (HCC) [E25.0] OAB (overactive bladder) [N32.81] Frequency of micturition [R35.0] Nocturnal enuresis [N39.44] Nocturia [R35.1] Allergies: Iodine Date Verified: 09/27/17 Lab Values No results within the last 30 days for the following basenames: K,HCT Progress Notes ([facility]OL [facility] EXCHANGE): Josie Multani 09/14/2017 7:41 AM Signed Patient was told she would have rec'd a call regarding her surgery already this week, would you be able to call and schedule her for the revision? Thank you Josie Rubin Coord 09/14/2017 7:48 AM Signed It is already scheduled for 09-27-17. It is on her appointment desk. Thanks Nicolasa Multani 09/14/2017 11:33 AM Signed Thank you. Josie Multani Progress Notes ([facility]): Eliseo Peña CNP 09/13/2017 5:30 PM Signed Trazodone prn ordered as had discussed in evaluation. She had declined during evaluation,but is now requesting. PROGRESS Observed: 09/05/2017 Status: COMPLETED Source: [place] 8:46 AM [facility] REPOSITORY O ID: [id number] Author: Eliseo Peña Service: (none) Author Type: Nurse Practitioner Type: Progress Notes Filed: 09/05/2017 10:06 AM Note Text: PSYCHIATRIC ASSESSMENT Patient was seen for an initial evaluation. All information is from Patient report except when noted. This evaluation is NOT intended for forensic, disability or child custody purposes. 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 REFERRAL SOURCE: Self; no primary pcp at [facility] CHIEF COMPLAINT: I have anxiety and depression. HPI: Fabi reports issues with anxiety and depression for past 12 years. She did see a therapist when at [facility] ([facility] in [place]but no other treatment. She reports crying spells about 4 days per week, irritability and isolation. Sleep: She has issues with initial insomnia and can take 2- 5 hours to fall asleep; sleep is restless; gets about 5 hours of sleep per night at most. Interest: diminished a little bit. Guilt: a bit My family and I feel as though I am not up to their standards. She occasionally feels helpless. She feels worthless several times per week. Energy: low Concentration: good Appetite: varies; over past month, she reports she lost about 20lbs when depression was highest Psychomotor Activity: psychomotor activity was WNL. Suicide: It/others would be better off if I was not here about one day per week had suicidal thoughts last year for a few days suicide attempt at age 12; overdosed on pills,but nobody knew and did not get treatment no family history of suicide attempt Phobias: flying Memory: Poor, reports being forgetful on a daily basis Anxiety: high She feels worried about something all of the time and is frequently restless. She gets stomach aches with anxiety. She has panic attacks about 1-2 per month; feels heart racing, sweats, hyperventilates during the attacks She feels as though people are looking at her, staring at her or judging her when in public. She can go to crowded places such as a store if she has a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 Rate : 068 BPM Atrial Rate : 068 BPM P-R Int : 204 ms QRS Dur : 092 ms QT Int : 406 ms P-R-T Axes : 066 072 027 degrees QTc Int : 431 ms Normal sinus rhythm Normal ECG Confirmed by FLASH HOLDER, TOBIN ([id number]), newspaper editor managing MAGED QUEZADA ([id number]) on 08/17/2017 12:51:00 PM Referred By: CINTIA Confirmed By:TOBIN GARRETT MD 08/17/17 1251 Date Tobin Garrett MD CC: EDMOND DYSON Signed DISCHARGE INSTRUCTION Observed: 08/14/2017 Status: F Source: VIRGIN 9:58 AM [facility] REPOSITORY [facility] Medical Records Department [address] [place] [address] Discharge Instruction 08/14/1757 MR#: [id number] Acct: [id number] Name: FABI CRABTREE Rep #: [id number] : 1995 21 From: Karen Araiza DO PCP: EDMOND DYSON Status: REG ER ED Disposition - Plan for ED Patient: Chief Complaint: Syncope Instructions: ED Syncope Vasovagal Referrals: Edmond Dyson [Primary Care Provider] - 5-7 Days What to do if you have Problems For any increased pain, shortness of breath, bleeding, nausea or vomiting, chest pain, or any unexpected problems, contact your Primary Care Provider. Call [facility] ([phone]) or report to the closest Emergency Room. Call 911 if necessary. 08/14/1758 <Electronically signed by Karen Araiza DO> Date Sondra Cintia DO Tashahéctorvinay Signature (If Indicated): Date CC: EDMOND DYSON EMERGENCY DEPARTMENT Observed: 08/14/2017 Status: F Source: VIRGIN SUMMARY 9:57 AM [facility] REPOSITORY [facility] Medical Records Department [address] [place] [address] Emergency Department Summary 08/14/17 0954 MR#: [id number] Acct: [id number] Name: FABI CRABTREE Rep #: [id number] : 1995 21 From: Karen Araiza DO PCP: EDMOND DYSON Status: REG ER - ER Visit Summary Date of Service: 08/14/17 Chief Complaint: [Syncope] History of Present Illness: The patient is a 21 F [presents the emergency department from work after having a syncopal episode. 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 Patient recalls feeling very hot and lightheaded. The next thing she remembered was being on the floor with people surrounding her. Patient is never had an episode like this before. Patient denies any recent illness. She denies any chest pain or palpitations. Patient states her last menstrual period was 1 week ago. She has not had any recent illnesses otherwise.] Physical Examination: [HEENT-PERRLA, EOMI. Cranial nerves II through XII grossly intact. TMs clear. Mucous membranes moist. No adenopathy. Cardiovascular-regular rate and rhythm without murmur or ectopy Lungs-clear to auscultation, chest wall stable without crepitus or subcu emphysema Abdomen-normoactive bowel sounds, soft, nontender, no rebound or rigidity, no peritoneal signs. Neuro zloq-mxnspn-kyrw and heel zamora testing within normal limits, negative Romberg, negative pronator drift, fundi benign Extremities-intact 4, normal range of motion, normal pulses, atraumatic] Test Results: [EKG obtained on arrival showed a sinus rhythm with a ventricular rate of 68 bpm with no acute ST segment changes noted. CBC with differential showed white blood cell count 4.9, hemoglobin 12.7, hematocrit 39, platelets 346. Chemistries were unremarkable. HCG was negative. Orthostatic vital signs were negative.] Emergency Department Course and Treatment: Patient given IV fluids in the emergency department. [] Treatment Plan: [I suspect patient likely had a vasovagal episode I do not feel any further workup or treatment is indicated.] Disposition: [Patient will be discharged to home in stable condition. Patient advised to return if chest pain, palpitations, recurrent syncope, or condition should worsen in any way.] Impression: [Syncope-suspect vasovagal etiology] This note was generated with [email or web address].br dictation software. It may contain incorrect words, spelling, and punctuation that were not noted in review of the chart prior to signing ED Disposition - Plan for ED Patient: Chief Complaint: Syncope Referrals: Edmond Dyson [Primary Care Provider] - What to do if you have Problems For any increased pain, shortness of breath, bleeding, nausea or vomiting, chest pain, or any unexpected problems, contact your Primary Care Provider. Call [facility] ([phone]) or report to the closest Emergency Room. Call 911 if necessary. 08/14/17 0957 <Electronically signed by Karen Araiza DO> Date Karen Araiza DO Cosigner Signature (If Indicated): Date CC: EDMOND DYSON CBC W/DIFF, AUTOMATED Collected: 08/14/2017 Status: F Source: RIVER 7:55 AM [facility] REPOSITORY TYPE CODE TESTS RESULT OUT OF RANGE REFERENCE UNITS LAB L100.1000 4.4-11.0 K/mm3 Normal WBC 4.9 LAB L100.1200 4.2-5.4 M/mm3 Normal RBC 4.43 LAB L100.1300 12.0-15.0 g/dl Normal HGB 12.7 LAB L100.1400 37-47 % Normal HCT 39.0 LAB L100.1500 81-99 fL Normal MCV 88.0 LAB L100.1600 27.0-32.0 pg Normal MCH 28.7 LAB L100.1700 32-36 g/gl Normal MCHC 32.6 LAB L100.1810 11.6-14.6 % Normal RDW CV 13.4 LAB L100.1820 35.1-43.9 fl Normal RDW SD 42.4 LAB L100.1900 150-450 K/mm3 Normal PLT 346 LAB L100.2000 6.2-12.0 fl Normal MPV 9.5 LAB L100.2100 47-70 % Low NEUT% 32.5 LAB L100.2200 19-41 % High LY% 50.9 LAB L100.2300 0-10 % High MONO% 12.6 LAB L100.2400 0-5 % Normal EO% 2.6 LAB L100.2500 0-1 % Normal BASO% 0.8 LAB L100.2550 0.0-0.9 % Normal IM GRAN % 0.600 Result Comment: IG% - Immature Granulocytes (promyelocytes, myelocytes and metamyelocytes) > 1% indicates that a LEFT SHIFT is Present. LAB L100.2620 2.0-7.7 X10 3/uL Low Absolute Neut 1.6 LAB L100.2720 0.83-4.51 X10 3/ul Normal Absolute Lymph 2.50 Performed By: #### L100.0100 #### [facility] [address] [place], [address] BASIC METABOLIC Collected: 08/14/2017 Status: F Source: VIRGIN PROFILE (BMP) 7:55 AM [facility] REPOSITORY TYPE CODE TESTS RESULT OUT OF RANGE REFERENCE UNITS LAB L501.0100 70-110 mg/dL Normal GLU 96 LAB L501.1000 7-18 mg/dL Normal BUN 18 LAB L501.1100 0.55-1.02 mg/dL High 1.13 CREAT,SERUM Result Comment: The validity of the calculated GFR AND GFRAA in patients over 70 years has not been determined. Clinical correlation is essential. LAB L501.1110 >60 mL/min Normal EST GFR 63 Result Comment: Non- GFR Calc LAB L501.1115 >60 mL/min Normal EST GFR - AA 76 Result Comment: GFR Calc LAB L501.1255 ml/min Normal Estimated CRCL 80.43 LAB L501.1300 10-20 RATIO Normal BUN/CRE 15.9 LAB L501.2200 8.5-10 mg/dL Low .1 CA 8.4 LAB L501.5300 136-14 mmol/L Normal 5 NA 139 LAB L501.5600 3.5-5. mmol/L Low 1 K 3.4 LAB L501.5900 98-107 mmol/L Normal CL 102 LAB L501.6100 21.0-3 mmol/L Normal 2.0 CO2 28.0 LAB L501.6200 5-15 Normal GAP 9 Performed By: #### L500.2500 #### [facility] [address] [place], [address] ,SERUM,HCG QUALI. Collected: Status: F Source: VIRGIN 08/14/2017 7:55 AM [facility] REPOSITORY TYPE CODE TESTS RESULT OUT OF REFERENCE UNITS RANGE LAB L700.7000 0-9 Nonpreg Negative Normal HCGSQUAL NEGATIVE LAB L700.6700 =>Qualitative mIU/mL Normal HCG Qual < 1 triggr Performed By: #### L700.6800 #### [facility] [address] [place], [address] EMERGENCY DEPARTMENT Observed: 07/25/2017 Status: F Source: VIRGIN SUMMARY 7:09 AM [facility] REPOSITORY [facility] Medical Records Department [address] [place] [address] Emergency Department Summary 07/25/17 0512 MR#: [id number] Acct: [id number] Name: FABI CRABTREE Rep #: [id number] : 1995 21 From: Jay More MD PCP: EDMOND DYSON Status: DEP ER - ER Visit Summary Date of Service: 07/25/17 Chief Complaint: Allergic reaction History of Present Illness: The patient is a [address] Dyson in [place]. She reports that approximately 30 minutes ago she took one half Advil PM. States it 15 minutes after that she began feeling as though her face and tongue were swelling. She is taken this medication before and has not had this reaction. Her last dose of this was approximately 3 weeks ago. She denies any itching or rash. Patient denies any change in soap, shampoo, laundry detergent, or fabric softener. No new clothing, bedding, carpeting, or pets. No new medications in the past month. Physical Examination: Vitals: Stable. Afebrile. General: Well-nourished and well-developed. Head: Normocephalic atraumatic. Lung of the right side of her face. HEENT: No angioedema of her lips, tongue, oropharynx. Neck: Supple, no lymphadenopathy. No JVD. Nontender. Cardiovascular: Regular rate and rhythm. No murmurs. Respiratory: No respiratory distress. Clear to auscultation bilaterally. Abdominal: Soft, nontender, nondistended, normal bowel sounds. No guarding, rebound, or peritoneal signs. Back: Nontender. Extremities: Nontender, no edema. Skin: Normal color, no rash. Neurologic: Alert and oriented 3. Cranial nerves II through XII are intact. Normal strength and sensation. Psych: Normal affect. Emergency Department Course and Treatment: She had an IV placed. She was treated with Benadryl, Pepcid, and Solu-Medrol IV. Her symptoms have completely resolved. Treatment Plan: This time I do not have an explanation for the patient's allergic reaction. She will be discharged on Zyrtec, Pepcid, and prednisone. Instructed follow-up with her primary care physician 1 to 2 days if not improving. Return to the emergency department for any worsening symptoms. Disposition: To home in improved and stable condition. Impression: 1. Acute allergic reaction. This note was generated with Baby.com.br dictation software. It may contain incorrect words, spelling, and punctuation that were not noted in review of the chart prior to signing ED Disposition - Plan for ED Patient: Chief Complaint: Allergic Reaction Instructions: ED Allergic Reaction General Other Prescriptions: Cetirizine HCl [Zyrtec] 10 mg PO DAILY #14 tab.rapdis Prednisone [Deltasone] 60 mg PO DAILY #15 tablet Famotidine [Pepcid] 20 mg PO BID #28 tablet Referrals: Karis,Edmond [Primary Care Provider] - 1-2 Days if not improving What to do if you have Problems For any increased pain, shortness of breath, bleeding, nausea or vomiting, chest pain, or any unexpected problems, contact your Primary Care Provider. Call [facility] ([phone]) or report to the closest Emergency Room. Call 911 if necessary. 07/25/17 0709 <Electronically signed by Jay More MD> Date Jay More MD Cosigner Signature (If Indicated): Date CC: EDMOND DYSON ALLERGIES ALLERGIES DATE TYPE / CODE NAME / CODE REACTION SEVERITY SOURCE 07/06/2018 Drug ibuprofen/D78836 Angioedema Unknown [place] Allergy/416 2377(RXNORM) [facility] 873508([facility] ED CT) Repository 09/29/2017 DRUG IBUPROFEN SWELLING [facility] INGREDI/419 Other [place] 883008([facility] Repository ED CT) 08/17/2017 Drug No Known Unknown [place] Allergy/416 Allergies/W57466 [facility] 137300([place] [address]([facility] Rep[facility] 06/21/2015 DRUG IODINE ITCHING [facility] INGREDI/419 Other [place] 411315([facility] Repository ED CT) NG/30199491 IBUPROFEN [facility]) Repository NG/83058011 IODINE [facility] 6([facility]) Repository Drug/797897 Advil FACE SWELLING [facility] 003([facility]) System Repository Drug/320290 Advil PM Throat swelling [facility] 003(SNOM[facility]) System Repository Drug/968105 No Known [facility] 003(SNOMED [facility] System Repository ENCOUNTERS ENCOUNTERS ADMIT/DISCHARGE ACCOUNT NUMBER ADMITTING ENCOUNTER LOCATION SOURCE CLASS 07/06/2018/07/06/20 [id number] Emergency [place] 18 [facility] ding:ED Repository 06/19/2018 [id number] Ambulatory [place] [facility] ding:LABSPEC Repository 06/17/2018/06/17/20 [id number] Ambulatory [place] [facility] [place] Repository 06/17/2018/06/18/20 [id number] Ambulatory [place] [facility] [place] Repository 06/11/2018/06/12/20 [id number] Ambulatory [place] [facility] [place] Repository 05/28/2018/05/30/20 [id number] Ambulatory [place] [facility] [place] Repository 05/17/2018/05/20/20 [id number] Ambulatory [place] [facility] [place] Repository 05/16/2018/05/16/20 [id number] Ambulatory [place] [facility] [place] Repository 05/16/2018/05/17/20 [id number] Ambulatory [place] 18 [facility] Main [place] Repository 04/17/2018 [id number] Ambulatory [facility] MEDICAL Repository CENTERBuildi ng:URAE 02/26/2018/02/27/20 [id number] Ambulatory [address] Main [place] Repository 01/16/2018/01/17/20 [id number] [place], Ambulatory [address] ding:AshFamP Repository racRoom: Room 2 01/04/2018/01/10/20 [id number] Ambulatory [place] [facility] [place] Repository 12/17/2017/12/20/19 [id number] Ambulatory [place] [facility] [place] Repository 12/06/2017/12/07/19 [id number] Ambulatory [place] [facility] [place] Repository 11/29/2017/11/30/19 [id number] Ambulatory [place] [facility] [place] Repository 11/29/2017/11/30/19 [id number] Ambulatory [place] [facility] [place] Repository 11/28/2017/11/29/19 [id number] Ambulatory [place] [facility] [place] Repository 11/28/2017/11/30/19 [id number] Ambulatory [place] [facility] [place] Repository 11/02/2017/11/03/19 [id number] Ambulatory [address] Other [place] Repository 11/02/2017/11/03/19 [id number] Ambulatory [address] MEDICAL Repository CENTERBuildi ng:AKUF 10/29/2017 [id number] Ambulatory General acute hospital ding:LABSPEC Repository 10/26/2017/10/27/19 [id number] [place], [address] ding:[facility] Health System Repository 10/19/2017/10/20/19 [id number] [place], [address] ding:[facility] DEP Repository 10/19/2017/10/20/19 [id number] [place], Ambulatory [facility] 18 [facility] ding:AshFa Repository racRoom: Room 1 10/15/2017/10/16/19 [id number] Ambulatory [address] Other [place] Repository 10/15/2017/10/16/19 [id number] Ambulatory [address] MEDICAL Repository CENTERBuildi ng:URAE 10/10/2017/10/11/19 [id number] Ambulatory [address] Main [place] Repository 09/29/2017/10/03/19 [id number] Ambulatory [address] Main [place] Repository 09/27/2017/09/27/[id number] Other [place] Repository 09/27/2017/09/27/[id number] MEDICAL Repository CENTERBuildi ng:AKORRoom: POOLBed: 24 09/05/2017/09/05/19 [id number] Ambulatory [address] Main [place] Repository 09/03/2017 [id number] Ambulatory [facility] Other [place] Repository 09/03/2017 [id number] Ambulatory [facility] MEDICAL Repository CENTERBuildi ng:URAE 08/17/2017/08/17/19 [id number] Emergency [place] ding:ED Repository 08/14/2017/08/14/19 [id number] Emergency [place] ding:ED Repository 07/25/2017/07/25/20 [id number] Emergency [place] ding:ED Repository PAYERS PAYERS ENCOUNTER GUARANTOR PAYER SUBSCRIBER SOURCE 07/06/2018 SHAUNA J Primary SHAUNA J [place] [id number] Insurance:ANTHEMPolic GIAUQUEDOB: Community [facility] y [place]: [id number] [id number] Repository [address]Tjr: (330) Date:0426-35-34GE [phone] (HP) [address] [place] [address] 82386TN: 07/06/2018 Secondary NOT GIVENUNK [place] Insurance:SELF PAY [facility] Number: Effective Repository Date:2018-07-06 06/19/2018 FABI Primary SHAUNA J [place] [id number] Insurance:ANTHEMPolic GIAUQUEDOB: [facility] y Number: [id number], [place] [id number] Repository [address]Fys: 419) Date:5374-49-58TP [phone] () [id number] [place] [address] 27076RN: 06/19/2018 Secondary NOT GIVENUNK [place] Insurance:SELF PAY [facility] Number: Effective Repository Date:2018-06-19 04/17/2018 [facility]OURTNEYAden[facility] CenterWIGDOB: Insurance:[facility] PPOPolicy Number: [id number] Repository SMITA [id number] [place], [place] Date: [address]Ifo: () 01/16/2018 [facility] Insurance:[facility] GERWIGDOB: [facility] ANTHEMPolicy Number: [id number] System SMITA Effective [facility] Repository [place], [place] Date:2018-01-16 - [place] [address]Rgm: [id number] [phone]: Name:CD:[id number] O () [address] [place] [address] ()Tel: [phone]: (WP) [phone] 11/02/2017 [place] GERWIGDOB: Insurance:BLUE ACCESS GERWIGDOB: [facility]: [id number] Repository SAMS [id number] [place], [place] Date: [address]Lxs: () 10/29/2017 [facility] [place] [id number] Insurance:ANTHEMPolic GERWIGDOB: [facility] SAMS y Number: [id number] [place], [place] [id number] Repository [address]Qbn: 419) Date:1957-61-72BB [phone] () [address] [place] [address] 13527DS: 10/29/2017 Secondary NOT GIVENUNK [place] Insurance:SELF PAY [facility] Number: Effective Repository Date:2017-10-29 10/26/2017 [facility] GERWIGDOB: Insurance:ANTHEMPolic GERWIGDOB: [facility] y Number: Effective [id number] System SAMS Date:2017-10-22 SAMS Repository [place], [place] 6534-54-02SgcqSarat[place], [place] [id number]: Name:Con [facility] [phone]: [address] [place] [address] (HP) [phone]: [phone]) () [phone] (WP) 10/19/2017 [facility]ENTERCOURTNEYMt. Washington Pediatric HospitalCOURTNEYQueen [facility] GERWIGDOB: Insurance:ANTHEMPolic GERWIGDOB: [facility] y Number: Effective [id number] System SAMS Date:2017-10-19 SAMS [place]ository [place] [id number] [place], [place] [id number]: Name:Con Bazzi [phone]: [address] [place] [address] (HP) [id number]: [phone]) (HP) [phone] (WP) 10/19/2017 [facility] LANCOURTNEYSt. Michaels Medical CenterDOB: Insurance:[address] [place], [place] [address]B: [facility] ANTHEMPolicy Number: [id number] System SAMS Effective 5 SAMS Repository [place], [place] Date:2017-10-19 - [place] [id number]: [id number] [id number]: Name:CD:[id number] Herminio (HP) [address] [place] [address] ()Tel: [phone]: (WP) [phone] 10/15/2017 [facility] Insurance:BLUE CARD GERWIGDOB: Health System PPOPolicy Number: [id number] Repository SAMS [id number] [place], [place] Date: [address]Vis: (HP) 09/27/2017 [facility]: Insurance:BLUE CARD GERWIGDOB: Health System PPOPolicy Number: [id number] Repository SAMS [id number] [place], [place] Date: [address]Qqo: (HP) 09/03/2017 [facility] Primary [facility] CenterDOB: Insurance:BLUE CARD GERWIGDOB: Health System PPOPolicy Number: [id number] Repository SAMS [id number] [place], [place] Date: [address]Jla: (HP) 08/17/2017 [facility] M [place] [id number] Insurance:ANTHEMPolic GERWIGDOB: Community [facility] y Number: [id number], [place] [id number] Repository [address]Ioh: (419) Date:9215-91-56GJ [phone] (HP) [address] [place] [address]DY: 08/17/2017 Secondary NOT GIVENUNK [place] Insurance:SELF PAY [facility] Number: Effective Repository Date:2017-08-17 08/14/2017 [facility] [place] [id number] Insurance:ANTHEMPolic GERWIGDOB: [facility] SAMS y Number: [id number] [place] [id number] Repository [address]Jsa: (419) Date:1279-16-34YB [phone] () [address] [place] [address] 338[address]JG: 08/14/2017 Secondary NOT GIVENUNK [place] Insurance:SELF PAY [facility] Number: Effective Repository Date:2017-08-14 07/25/2017 [facility] [place] [id number] Insurance:ANTHEM GerwigDOB: Community [facility] EXCHANGE PLANPolicy [id number], [place] Number: Repository [address]Lic: (419) [id number] [phone] (HP) Date:[id number] [id number] [place] [address] [id number]: 07/25/2017 Secondary NOT GIVENUNK [place] Insurance:SELF PAY [facility] Number: Effective Repository Date:2017-07-25
== END 2018-07-06 21:56 | disposition home or self-care (01) ==
PROVIDERS: Emergency Provider Emergency Medicine; Family Provider Internal Medicine; PCP Internal Medicine
DX: R07.89 Other chest pain (principal); Z79.899 Other long term (current) drug therapy
CPT/HCPCS: 71046; 80048; 84484; 84703; 85025; 85379; 93005; 96361; 96374; 96375; 99284; J7030; A4216; J2405

== ENCOUNTER 2018-07-27 12:24 | Emergency (ER) | payer BC, SELFPAY ==
[2018-07-27 12:25] VITALS: BP 133/77; PULSE 66; RESP 16; TEMP 37; O2SAT 99; BMI 22.1
[2018-07-27 13:49] LABS: Bacteria 0 SEEN /hpf (None Seen); Mucous, Urine 0 SEEN /hpf (<or=2+); Red Blood Cells-Urine 0 SEEN /hpf (0-5); White Blood Cells 0 SEEN /hpf (0-5)
--- NOTE | 2018-07-27 13:53 | CT_ITS ---
STUDY: CT ABDOMEN AND PELVIS WITHOUT CONTRAST REASON FOR EXAM: Female, 22 years old. Left flank pain with hematuria RADIATION DOSAGE (If Supplied By Facility): CTDIvol = ( 6.11 ) mGy, DLP = ( 291.69 ) mGycm TECHNIQUE: Transaxial images were obtained from the dome of the diaphragm to the symphysis pubis without oral contrast, and without intravenous contrast. Sagittal and coronal images were reconstructed. Individualized dose optimization techniques were used for this CT. COMPARISON: None. FINDINGS: The visualized lung bases are unremarkable. The visualized portions of the heart are within normal limits. Normal liver. Normal gallbladder and extrahepatic biliary system. Normal spleen. Normal pancreas. Normal bilateral adrenal glands. Normal right kidney. Normal left kidney. Normal visualized stomach. Normal small intestine. No colon wall thickening. There is moderate fecal retention throughout the colon. The appendix is visualized and appears normal. Normal abdominal aorta. Normal inferior vena cava. Normal retroperitoneum. Mild circumferential wall thickening with mild amount of pericystic fat induration suggesting inflammation, possibly cystitis. Multiple pelvic vascular lupus are present. An IUD is noted within the uterus. Normal abdominal wall. Normal osseous structures. Neurostimulator device is noted with lead extending anterior to the right side of the sacrum. CT/Abdomen/Pelvis without Cont IMPRESSION: 1. No hydronephrosis or urinary tract calcifications demonstrated. 2. Mild urinary bladder wall thickening with pericystic induration suggesting possibility of urinary tract infection/cystitis. Correlation with urinalysis is suggested. Electronically Signed: Gerson Mason MD at 15:40 EST , Service support ,
[2018-07-27 13:58] LABS: Color, Urine Yellow (Yellow); Glucose, Dipstick Normal (Normal); Ketone-Dipstick Negative (Negative); Leukocyte Esterase-Dipstick Negative /ul (Negative); Nitrite-Dipstick Negative (Negative); Occult Blood-Urine Negative /ul (Negative); Protein-Dipstick Negative (Negative); Urine Bilirubin Dipstick Negative (Negative); Urine Clarity Clear (Clear); Urine Urobilinogen Normal (Normal)
[2018-07-27 14:03] LABS: Squamous Epithelial Cells - UA 5-10 SEEN /hpf (5-10)
[2018-07-27] MEDS: 0.9% Normal Saline 1,000 ML 150 ML IV (14:28)
[2018-07-27 14:32] LABS: Absolute Neutrophil Count 1.2 X10^3/uL (2.0-7.7); Basophil# 0.02 X10^3/uL; Basophil% 0.5 % (0-1); Eosinophil# 0.28 X10^3/uL; Eosinophils% 6.7 % (0-5); Hemoglobin 11.9 g/dl (12.0-15.0); Lymphocyte % 55.4 % (19-41); Mean Corp Hgb Conc 33.1 g/gl (32-36); Mean Corpuscular Hgb 28.7 pg (27.0-32.0); Mean Platelet Vol. 9.1 fl (6.2-12.0); Monocyte# 0.31 X10^3/uL; Monocyte% 7.5 % (0-10); Neutrophil # 1.23 X10^3/uL (2.7-7.7); Neutrophil % 29.7 % (47-70); Platelet Count 199 K/mm3 (150-450); RBC Distribution Width CV 13.8 % (11.6-14.6); RBC Distribution Width SD 44.2 fl (35.1-43.9); Red Blood Count 4.14 M/mm3 (4.2-5.4); White Blood Count 4.2 K/mm3 (4.4-11.0)
[2018-07-27 14:33] LABS: POSITIVE COUNT NO; POSITIVE DIFFERENTIAL NO; POSITIVE MORPHOLOGY NO
[2018-07-27 14:46] LABS: Anion Gap 7 (5-15); BUN 14 mg/dL (7-18); BUN/Creat Ratio 16.2 RATIO (10-20); Calcium,Total 8.6 mg/dL (8.5-10.1); Chloride 109 mmol/L (98-107); Creatinine, Serum 0.86 mg/dL (0.55-1.02); EST Glomerular Filtration Rate 85 mL/min (>60); Est Glom Filt Rate - Afr Amer 103 mL/min (>60); Estimated Creatinine Clearance 109.08 ml/min; Glucose 83 mg/dL (74-106); Potassium 4.1 mmol/L (3.5-5.1); Sodium Level 142 mmol/L (136-145)
[2018-07-27 15:04] LABS: Pregnancy, Serum, hCG Quali. NEGATIVE Negative (0-9 Nonpreg)
[2018-07-27 15:21] VITALS: BP 134/72; PULSE 68; RESP 16
[2018-07-27] MEDS: Morphine 4 MG/ML Syringe IV (15:43)
[2018-07-27] MEDS: Ondansetron 4 MG/2 ML Vial IV (15:43)
--- NOTE | 2018-07-27 16:11 | ED.VISSUMM ---
- ER Visit Summary Date of Service: 07/27/18 Chief Complaint: [Abdominal pain and hematuria] History of Present Illness: The patient is a 22 F [presents the emergency department with complaint of intermittent abdominal discomfort for the last 3 days. Patient describes a dull continuous ache that then will have a sharp stabbing pain intermittently. Patient states the pain is more in the upper abdomen. Patient also has noticed some blood in her urine recently. She is had some urinary frequency. Patient had a metallic taste in her mouth. Patient also complains of left-sided pain over her kidney area. Patient does have a history of a neurogenic bladder and has a bladder pacemaker. Patient has an IUD. She does not believe she is .] Physical Examination: [HEENT-PERRLA, EOMI. Cranial nerves II through XII grossly intact. TMs clear. Mucous membranes moist. No adenopathy. Cardiovascular-regular rate and rhythm without murmur or ectopy Lungs-clear to auscultation, chest wall stable without crepitus or subcu emphysema Abdomen-normoactive bowel sounds, soft. Patient has some mild diffuse tenderness to palpation. There is no rebound, rigidity, or perineal signs. Extremities-intact ?4, normal range of motion, normal pulses, atraumatic] Test Results: [CBC with differential obtained showed a white blood cell count of 4.2, hemoglobin 11.9, hematocrit 36, platelets 199. Chemistries unremarkable. Urinalysis normal. CT flank showed bladder wall thickening which may be indicative of cystitis.] Emergency Department Course and Treatment: Patient was medicated with morphine and Zofran 4 mg IV Treatment Plan: [Patient will be given a prescription for [place] for pain and a prescription for Prevacid. Patient will be given a referral to general surgery early childhood education instructor if she continues to have pain and she states that food seems to make her pain worse. Patient also will be referred to urology if persistent hematuria] Disposition: [Discharged home in stable condition] Impression: [Abdominal pain-etiology uncertain] This note was generated with [employer] dictation software. It may contain incorrect words, spelling, and punctuation that were not noted in review of the chart prior to signing ED Disposition - Plan for ED Patient: Chief Complaint: Abd Pain Referrals: Laura Hernandez MD [Primary Care Provider] -
--- NOTE | 2018-07-27 16:14 | ED.DEP ---
ED Disposition - Plan for ED Patient: Chief Complaint: Abd Pain Prescriptions: Hydrocodone Bitart/Apap 5-325 [[place] 5MG-325MG] 1 tab PO Q4H PRN PRN 2 Days #10 tab PRN Reason: Pain Lansoprazole [Prevacid] 30 mg PO DAILY #30 cap Referrals: Laura Hernandez MD [Primary Care Provider] - 3-5 Days Elliott Houston MD [STAFF PHYSICIAN] - 3-5 Days Ty Broussard MD [STAFF PHYSICIAN] - 3-5 Days
[2018-07-27 16:41] VITALS: BP 124/81; PULSE 56; RESP 14; TEMP 36.7; O2SAT 100
== END 2018-07-27 16:42 | disposition home or self-care (01) ==
PROVIDERS: Emergency Provider Emergency Medicine; Family Provider Internal Medicine; PCP Internal Medicine
DX: R10.84 Generalized abdominal pain (principal); R31.9 Hematuria, unspecified; N31.9 Neuromuscular dysfunction of bladder, unspecified; Z79.899 Other long term (current) drug therapy
CPT/HCPCS: 74176; 80048; 81001; 84703; 85025; 96361; 96374; 96375; 99285; J7030; J2405

== ENCOUNTER → 2018-09-05 08:28 | Outpatient (CLI) | payer BC, SELFPAY ==
--- NOTE | 2018-09-05 08:36 | CT_ITS ---
STUDY: CT MAXILLOFACIAL SINUSES REASON FOR EXAM: Female, 22 years old. Recurrent sinusitis. RADIATION DOSAGE (If Supplied By Facility): CTDIvol = ( 33.06 ) mGy, DLP = ( 800.79 ) mGycm TECHNIQUE: The patient was scanned in a multi detector CT scanner. High resolution axial imaging was performed without the administration of intravenous contrast material. Sagittal and coronal images were reconstructed. Individualized dose optimization techniques were used for this CT. COMPARISON: None. FINDINGS: FRONTAL SINUSES: Normal aeration, without mucosal inflammatory disease. ETHMOIDAL SINUSES: Normal aeration, without mucosal inflammatory disease. MAXILLARY SINUSES: Mucosal thickening of the inferior aspect of the right maxillary sinus. SPHENOIDAL SINUSES: Focal mucosal thickening along the lateral aspect of the right sphenoid sinus. There is patency of the bilateral maxillary infundibuli with normal uncinate processes, ethmoid bullae, and hiatus semilunaris. Normal bilateral middle turbinates. There is hypertrophy of the left inferior nasal turbinate. Normal midline nasal septum. There is patency of the bilateral nasal airways. The visualized osseous structures are normal. The visualized bilateral orbital contents are normal. CT/Sinus/Facial Bone IMPRESSION: Mucosal thickening along the inferior aspect of the right maxillary sinus. Focal mucosal thickening along the lateral aspect of the right sphenoid sinus. Hypertrophy of the inferior turbinate on the left side. Electronically Signed: Rolf Lepe MD at 15:32 EST , Service support ,
== END ==
PROVIDERS: Family Provider Internal Medicine; PCP Internal Medicine; Referring Provider Otolaryngology; Visit Provider Otolaryngology
DX: J32.9 Chronic sinusitis, unspecified (principal)
CPT/HCPCS: 70486

== ENCOUNTER 2019-10-27 12:48 | Emergency (ER) | payer BC, SELFPAY ==
[2019-10-27 12:49] VITALS: BP 119/72; PULSE 74; RESP 16; TEMP 37.2; O2SAT 100; BMI 21.1
--- NOTE | 2019-10-27 13:36 | EKG12_ITS ---
Test Reason : CP Blood Pressure : / mmHG Vent. Rate : 058 BPM Atrial Rate : 058 BPM P-R Int : 190 ms QRS Dur : 082 ms QT Int : 412 ms P-R-T Axes : 067 074 029 degrees QTc Int : 404 ms Sinus bradycardia Otherwise normal ECG Confirmed by FLASH HOLDER, JACK ([id number]), publications editor AZUL QUINN ([id number]) on 10/28/2019 8:26:26 AM Referred By: YOANA Confirmed By:JACK VIDALES MD
--- NOTE | 2019-10-27 13:36 | RAD_ITS ---
STUDY: X-RAY CHEST REASON FOR EXAM: Female, 23 years old. RIGHT SIDED CP TECHNIQUE: PA and lateral views of the chest. COMPARISON: Comparison is made with prior examination dated April 06, 2018. FINDINGS: Hyperinflation. There is no demonstrated pleural abnormality. Normal size heart. Normal mediastinum and coby. Normal visualized pulmonary arteries. Normal visualized aortic arch and descending thoracic aorta. Stable mild degree of dextroscoliosis. Normal visualized ribs, clavicles, and shoulders. There is no demonstrated abnormality of the visualized soft tissue structures of the upper abdomen. RAD/Chest PA and Lateral IMPRESSION: No acute abnormality is seen. Electronically Signed: Rolf Lepe, at 14:13 EDT , Service support ,
--- NOTE | 2019-10-27 13:37 | ED.VIS.GEN ---
History of Present Illness Chief Complaint: Chest Pain Informant: Patient Onset: Today Narrative: Patient reports intermittent right-sided chest pain with mild cough and wheezing since . Yesterday more persistent pain on the right chest. Ibuprofen taken no relief. Reports called health clinic Sunday started on prednisone and inhaler due to history of asthma. Denies tobacco history. Does have implant for control. No recent travel, surgeries, or immobilizations. No history of PE or DVT. No fevers or myalgias. No vomiting or diarrhea. No urinary symptoms. Patient called back her health clinic was told to get a chest x-ray either in [place] or go to the emergency department. Prior similar symptoms: No Past Medical History - Allergies and Home Meds Allergies/Adverse Reactions: Allergies ibuprofen [From Advil] Allergy (Verified 10/27/19 12:49) Angioedema Primary Care Physician: Laura Hernandez MD [Primary Care Provider] - Past Medical History: - - Asthma Smoking Status: Never smoker Review of Systems General: Denies: Chills, Fever, Sweats Eyes: Denies: Visual changes - bilaterally, Diplopia ENT: Denies: Rhinorrhea, Sore throat Cardiovascular: Reports: Chest pain. Denies: Palpitations Respiratory: Denies: Dyspnea, Cough, Dyspnea on exertion Gastrointestinal: Denies: Abdominal pain, Nausea, Vomiting, Diarrhea, Melena, Hematochezia Genitourinary: Denies: Dysuria, Hematuria, Frequency Musculoskeletal: Denies: Back pain, Extremity Pain Skin: Denies: Rash, Wounds Neurological: Denies: Headache, Weakness, Numbness Physical Exam Vital Signs/Narrative: Vital Signs Temp Pulse Resp BP Pulse Ox 10/27/19 12:49 99 F 74 16 119/72 100 Inital Vital Signs reviewed: Yes General: Well nourished, Well developed, No Acute Distress Head: Normocephalic, Atraumatic Eyes: Perrl, EOMI ENT: Moist mucous membranes, No rhinorrhea Neck: Supple, Nontender Cardiovascular: Regular rate, Regular rhythm, No murmurs Respiratory: No distress, CTA bilaterally, Chest tenderness - Mild reproducible right-sided chest pain, symmetric breath sounds Abdomen: Soft, Nontender, Nondistended, Normal bowel sounds Back: Nontender, Normal Inspection Extremities: Nontender, No edema Skin: Normal color, No rash Neurological: Alert, Oriented x3, Cranial nerves II-XII grossly intact, Normal Strength, Normal Sensation Psychological: Normal affect, Normal Mood Diagnostic/Tx/Re-eval Clinical Impression(s) from Imaging Studies Chest X-Ray 10/27/19 13:36 IMPRESSION: No acute abnormality is seen. Electronically Signed: Rolf Lepe, at 14:13 EDT , Service support , - Medical Decision Making Patient vital signs stable, EKG sinus rhythm rate of 58, no ST or T wave changes. Clinically is not presenting for concerns for PE. Chest x-ray obtained negative. With her reported wheezing initially asthma history appropriate treatment with her steroids and continue inhaler as needed. Signs and some discussed return. Discussed viral syndrome along with her asthma history causing her atypical chest pains. She is given Covid instructions due to pandemic at this time. All questions were answered. ED Disposition - Plan for ED Patient: Disposition: Home or Assisted Living Diagnosis: Viral syndrome, Asthma, Atypical chest pain Instructions: ASTHMA, Acute (Adult), VIRAL SYNDROME (Adult), CHEST PAIN, NonCardiac Referrals: Laura Hernandez MD [Primary Care Provider] - 3-5 Days
--- NOTE | 2019-10-27 14:48 | ED.RN ---
DISCHARGE INSTRUCTIONS GIVEN TO AND REVIEWED WITH PATIENT, PATIENT DENIES QUESTIONS OR CONCERNS AND VOICES UNDERSTANDING OF DISCHARGE INSTRUCTION. PT AMBULATES OUT OF ROOM WITHOUT DIFFICULTY.
== END 2019-10-27 14:48 | disposition home or self-care (01) ==
PROVIDERS: Emergency Provider Emergency Medicine; PCP Internal Medicine
DX: B34.9 Viral infection, unspecified (principal); R07.89 Other chest pain; J45.909 Unspecified asthma, uncomplicated
CPT/HCPCS: 71046; 93005; 99282

== ENCOUNTER 2022-04-24 21:01 | Emergency (ER) | payer OTHER, SELFPAY ==
--- NOTE | 2022-04-24 00:08 | RAD_ITS ---
INDICATION: chest pain EXAMINATION: Frontal view of the chest COMPARISON: October 27, 2019. FINDINGS: Frontal view of the chest was obtained. The cardiac silhouette is not enlarged. No confluent airspace disease. No pneumothorax. No acute fracture identified. RAD/Chest 1 View (Portable) IMPRESSION: No acute pulmonary disease. Electronically Signed: Silvio Baptiste MD at 0:57 EDT ,
[2022-04-24 21:01] VITALS: RESP 16
[2022-04-24 21:03] VITALS: BP 146/104; PULSE 82; RESP 18; TEMP 36.2; O2SAT 100; BMI 22.1
[2022-04-24 23:01] VITALS: BP 121/81; PULSE 61; RESP 16; O2SAT 95
--- NOTE | 2022-04-24 23:37 | EKG12_ITS ---
Test Reason : DYSRHYTHMIA Blood Pressure : / mmHG Vent. Rate : 061 BPM Atrial Rate : 061 BPM P-R Int : 226 ms QRS Dur : 086 ms QT Int : 420 ms P-R-T Axes : 075 077 045 degrees QTc Int : 422 ms Sinus rhythm with 1st degree A-V block Otherwise normal ECG Confirmed by HUONG HOLDER, JAJA ([id number]), editorial clerk AZUL QUINN ([id number]) on 04/26/2022 11:04:51 AM Referred By: SHEILA Confirmed By:JAJA BORJA MD
--- NOTE | 2022-04-24 23:37 | EX.ED.DYSGE1 ---
HPI History of Present Illness Chief Complaint: Chest Pain Informant: patient Narrative Narrative: Patient presents with episodes of what she feels like her missing heartbeats. She states her heart will beat normally. It will then have a pause and then of very heavy beat. When she gets this she feels a little bit of pressure in her chest. She feels a little bit warm or flushed. She does not get diaphoretic. She has not presyncopal. It is very sporadic when these occur. She overall feels well. She has been having some mild headaches but that is not uncommon. There is no change in her recent medications. No leg pain or swelling. No cough or dyspnea. No hemoptysis. Patient does report a history of abnormal heart rhythms when she was about 12 or 13 years old. She was told she would probably grow out of them. She had had what sounds like Holter monitors at the time. She does not recall the rhythm that she had. PFSH PFS Home Medications citalopram 10 mg tablet 10 mg PO DAILY 07/06/18 [History Last Taken Unknown] lansoprazole 30 mg capsule,delayed release 30 mg PO DAILY #30 caps 07/27/18 [Rx Last Taken Unknown] lamotrigine 25 mg tablet 25 mg PO DAILY 04/25/22 [History Last Taken Unknown] Allergy/AdvReac Type Severity Reaction Status Date / Time ibuprofen [From Advil] Allergy Angioedema Verified 04/24/22 21:02 Social History Smoking Status: Never smoker ROS ROS ED Constitutional Constitutional ED: Denies chills, fever(s) or subjective Eyes Eyes: Denies change in vision ENT ENT ED: Denies rhinorrhea or sore throat Cardiovascular Cardiovascular: Reports other Details: See history of present illness peer Respiratory/Chest Respiratory/Chest: Denies cough, dyspnea or sputum Gastrointestinal Gastrointestinal: Denies abdominal pain, nausea or vomiting Genitourinary Genitourinary ED: Denies dysuria Musculoskeletal Musculoskeletal: Denies arthralgias or myalgias Integumentary Denies rash Neurologic Neurologic: Denies paresthesias or weakness Psychiatric Psychiatric: Reports anxiety Endocrine Endocrinology: Denies polydipsia or polyuria Hematologic/Lymphatic Hematologic/Lymphatic: Denies easy bleeding, easy bruising or lymphadenopathy Allergic/Immunologic Allergic/Immunologic ED: Denies urticaria EXAM Physical Exam Const Vital Signs: 04/24/22 21:03 04/24/22 23:37 04/24/22 21:01 Temperature 97.2 F L Temperature Source Temporal Pulse Rate 82 Respiratory Rate 18 16 Respiratory Effort Blood Pressure 146/104 H Blood Pressure Mean 118 Pulse Ox 100 Oxygen Delivery Method Room Air Room Air 04/24/22 23:01 04/25/22 00:10 Temperature Temperature Source Pulse Rate 61 Respiratory Rate 16 Respiratory Effort Normal Non-Labored Blood Pressure 121/81 H Blood Pressure Mean 94 Pulse Ox 95 Oxygen Delivery Method Room Air Positive well nourished and well developed General Appearance ED: well developed and NAD; Negative for cyanotic or diaphoretic HEENT Reports moist mucous membranes; Denies dry mucous membranes Mouth ED: No dry mucous membranes Mouth: No dry mucous membranes Eyes EOMs intact bilaterally General Eye ED: Negative for scleral icterus Neck no lymphadenopathy Chest Wall inspection of chest normal and palpation of chest normal Resp normal respiratory effort and clear to auscultation bilaterally Resp Narrative: No pain with a deep breath. Auscultation: Negative for rales, rhonchi or wheezes Cardio regular rate, regular rhythm and no murmurs Rate: other Other Details: Heart is very regular. While I am in the room, she does have a PVC. She has symptoms with this. The PVC I saw on the monitor did correlate with the symptoms that she came in for. This was a single beat. It was not a couplet or longer. GI normal to inspection, nondistended, normoactive bowel sounds and non-tender Back/Spine no CVA tenderness Extremity normal to inspection Extremity Narrative: No edema, cords, tenderness distended veins or asymmetry. General Extremety ED: Negative for edema or tenderness General Extremity: Negative for edema Neuro Sensorium / Orientation: alert Psych mental status grossly normal Skin no rashes or lesions noted Lesions: No lesion noted Rashes: No rashes noted MDM MDM MDM Narrative Medical decision making narrative: Chest x-ray is not showing any acute process. CBC is normal including white count hemoglobin and platelets. Electrolytes are normal. Magnesium troponin and TSH are also normal. Patient has had a couple episodes of PVCs here. This is what she feels. I think she is safe for discharge. She will follow-up with her physician. They will discuss ongoing care and possible cardiac monitoring. We discussed reasons to return. Lab Data Attestation: I reviewed the patient's lab results. Labs: Laboratory Results - last 24 hr 04/24/22 04/24/22 23:59 23:59 WBC 4.7 RBC 4.13 L Hgb 12.5 Hct 37.8 MCV 91.5 MCH 30.3 MCHC 33.1 RDW Std Deviation 44.0 H RDW Coeff of Faye 13.2 Plt Count 260 MPV 9.5 Immature Gran % (Auto) 0.600 Neut % (Auto) 39.4 L Lymph % (Auto) 46.1 H [place] % (Auto) 7.2 Eos % (Auto) 5.8 H Baso % (Auto) 0.9 Absolute Neuts (auto) 1.9 L Absolute Lymphs (auto) 2.16 Nucleated RBC % 0 Sodium 141 Potassium 4.0 Chloride 106 Carbon Dioxide 28.0 Anion Gap 7 BUN 14 Creatinine 0.88 Estim Creat Clear Calc 102.92 Est GFR (MDRD) Af Amer 98 Est GFR (MDRD) Non-Af 81 BUN/Creatinine Ratio 15.9 Glucose 84 Calcium 9.1 Magnesium 2.0 Troponin I High Sens 5 TSH 1.39 Radiography Diagnostic Testing: Single view chest x-ray read by me shows no sign of pneumothorax. No notable rib or bony abnormality. Aortic stripe looks normal. Cardiac silhouette looks normal. No sign of infiltrate. Overall normal-appearing x-ray. Incidental note of decorative studs. EKG Initial EKG: Comments: EKG done for palpitations read by me shows normal sinus rhythm with slight first-degree AV block. No ectopy seen on this EKG. No ST elevation depression. WA interval is long at 226 ms. QRS duration and QTc normal. Discharge Plan Triage Chief Complaint: Chest Pain Other Complaint: Fatigue ED Provider: Amarjit Guallpa Dx/Rx/DC Orders Clinical Impression: Symptomatic PVCs Instructions: PVCs, ED Chest Pain, Uncertain Cause Prescriptions: No Action citalopram 10 MG tablet 10 mg PO DAILY lansoprazole 30 MG capsule 30 mg PO DAILY Qty: 30 0RF lamotrigine 25 mg tablet 25 mg PO DAILY Label Comments: PLEASE SEE ATTACHED FOR DETAILED DIRECTIONS Primary Care Provider: Laura Hernandez Referrals: Laura Hernandez MD [Primary Care Provider] - 3-5 Days Disposition Disposition: Home, Self Care
[2022-04-25 00:18] LABS: Absolute Lymphocyte Count 2.16 X10^3/uL (0.83-4.51); Absolute Neutrophil Count 1.9 X10^3/uL (2.0-7.7); Basophil# 0.04 X10^3/uL; Basophil% 0.9 % (0-1); Eosinophil# 0.27 X10^3/uL; Eosinophils% 5.8 % (0-5); Hematocrit 37.8 % (37-47); Hemoglobin 12.5 g/dL (12.0-15.0); Lymphocyte # 2.16 X10^3/ul (0.83-4.51); Lymphocyte % 46.1 % (19-41); Mean Corp Hgb Conc 33.1 g/dL (32-36); Mean Corpuscular Hgb 30.3 pg (27.0-32.0); Mean Corpuscular Volume 91.5 fL (81-99); Mean Platelet Vol. 9.5 fl (6.2-12.0); Monocyte# 0.34 X10^3/uL; Monocyte% 7.2 % (0-10); NRBC Flagged by Analyzer 0 % (0-5); Neutrophil # 1.85 X10^3/uL (2.7-7.7); Neutrophil % 39.4 % (47-70); Platelet Count 260 K/mm3 (150-450); RBC Distribution Width CV 13.2 % (11.6-14.6); Red Blood Count 4.13 M/mm3 (4.2-5.4); White Blood Count 4.7 K/mm3 (4.4-11.0)
[2022-04-25 00:34] LABS: Anion Gap 7 (5-15); BUN 14 mg/dL (7-18); BUN/Creat Ratio 15.9 RATIO (10-20); Calcium,Total 9.1 mg/dL (8.5-10.1); Chloride 106 mmol/L (98-107); Creatinine, Serum 0.88 mg/dL (0.55-1.02); EST Glomerular Filtration Rate 81 mL/min (>60); Est Glom Filt Rate - Afr Amer 98 mL/min (>60); Estimated Creatinine Clearance 102.92 ml/min; Glucose 84 mg/dL (74-106); Sodium Level 141 mmol/L (136-145); Thyroid Stim Hormone (TSH) 1.39 uIU/mL (0.358-3.74); Troponin-I HS 5 pg/mL (3.0-54.0)
== END 2022-04-25 00:49 | disposition home or self-care (01) ==
PROVIDERS: Emergency Provider Emergency Medicine; PCP Internal Medicine; Visit Provider Emergency Medicine
DX: I49.3 Ventricular premature depolarization (principal); R51.9 Headache, unspecified; R53.83 Other fatigue
CPT/HCPCS: 71045; 80048; 83735; 84443; 84484; 85025; 93005; 99284; A4216

== ENCOUNTER 2023-02-03 00:38 | Emergency (ER) | payer OTHER, SELFPAY ==
[2023-02-03 00:39] VITALS: BP 149/92; PULSE 63; RESP 16; TEMP 36.6; O2SAT 100; BMI 21.2
--- NOTE | 2023-02-03 01:12 | EKG12_ITS ---
Test Reason : CP Blood Pressure : / mmHG Vent. Rate : 057 BPM Atrial Rate : 057 BPM P-R Int : 202 ms QRS Dur : 082 ms QT Int : 432 ms P-R-T Axes : 073 074 043 degrees QTc Int : 420 ms Sinus bradycardia Otherwise normal ECG Confirmed by DAWN HOLDER, OLEG ([id number]), editor department AZUL QUINN ([id number]) on 02/07/2023 11:49:43 AM Referred By: HUONG Confirmed By:LUIS SEYMOUR MD
[2023-02-03] MEDS: Orphenadrine 60 MG/2 ML Ampul IV (01:17)
[2023-02-03] MEDS: 0.9% Normal Saline 1,000 ML 999 ML IV (01:17)
[2023-02-03 01:19] LABS: Absolute Lymphocyte Count 0.95 X10^3/uL (0.83-4.51); Absolute Neutrophil Count 4.5 X10^3/uL (2.0-7.7); Basophil# 0.01 X10^3/uL; Basophil% 0.2 % (0-1); Eosinophil# 0.01 X10^3/uL; Eosinophils% 0.2 % (0-5); Hematocrit 43.7 % (37-47); Hemoglobin 14.1 g/dL (12.0-15.0); Lymphocyte # 0.95 X10^3/ul (0.83-4.51); Lymphocyte % 17.2 % (19-41); Mean Corp Hgb Conc 32.3 g/dL (32-36); Mean Corpuscular Hgb 29.4 pg (27.0-32.0); Mean Corpuscular Volume 91.2 fL (81-99); Mean Platelet Vol. 9.7 fl (6.2-12.0); Monocyte# 0.08 X10^3/uL; Monocyte% 1.4 % (0-10); NRBC Flagged by Analyzer 0 % (0-5); Neutrophil # 4.46 X10^3/uL (2.7-7.7); Neutrophil % 80.6 % (47-70); Platelet Count 319 K/mm3 (150-450); RBC Distribution Width CV 12.9 % (11.6-14.6); RBC Distribution Width SD 43.5 fl (35.1-43.9); Red Blood Count 4.79 M/mm3 (4.2-5.4); White Blood Count 5.5 K/mm3 (4.4-11.0)
[2023-02-03 01:32] LABS: Internal QC Validated? YES +Cl - CLEAR BKGD; Pregnancy, Serum, hCG Quali. NEGATIVE Negative
--- NOTE | 2023-02-03 01:35 | RAD_ITS ---
INDICATION: chest pain EXAMINATION: Frontal and lateral views of the chest. COMPARISON: Chest x-ray April 25, 2022. FINDINGS: Frontal and lateral views of the chest were obtained. The cardiac silhouette is not enlarged. No confluent airspace disease. No pleural effusion or pneumothorax. Mild curvature of the upper thoracic spine. No acute fracture. RAD/Chest PA and Lateral IMPRESSION: No acute pulmonary disease. Electronically Signed: Silvio Baptiste MD at 2:57 EDT ,
[2023-02-03 01:37] LABS: Anion Gap 8 (5-15); BUN 20 mg/dL (7-18); BUN/Creat Ratio 16.8 RATIO (10-20); Calcium,Total 9.8 mg/dL (8.5-10.1); Chloride 105 mmol/L (98-107); Creatinine, Serum 1.19 mg/dL (0.55-1.02); EST Glomerular Filtration Rate 57 mL/min (>60); Est Glom Filt Rate - Afr Amer 69 mL/min (>60); Glucose 142 mg/dL (74-106); Magnesium 2.4 mg/dL (1.6-2.6); Potassium 4.2 mmol/L (3.5-5.1); Sodium Level 135 mmol/L (136-145); Troponin-I HS < 3 pg/mL (3.0-54.0)
[2023-02-03 01:38] VITALS: BP 135/81; PULSE 61; RESP 15; O2SAT 98
[2023-02-03 02:34] VITALS: BP 112/74; PULSE 59; RESP 16; O2SAT 98
--- NOTE | 2023-02-03 02:34 | EX.ED.DYSGE1 ---
HPI History of Present Illness Chief Complaint: Chest Pain Informant: patient and spouse/S.O. Narrative Narrative: Patient is a 27-year-old female with past medical history of asthma. She states that over the past 3 to 5 days she has had intermittent bouts of midsternal to left-sided chest discomfort. She states the pain can come on at any point and is not necessarily associated with motion or inspiration. She states the pain can range from a dull ache to a sharp stab and can last anywhere from a few seconds to multiple minutes. She denies any associated nausea vomiting diaphoresis shortness of breath with this. She denies any family history of cardiac disease at a young age. She denies any recent trauma or excessive activity and she denies any recent travel surgery or history of DVT/PE. As symptoms have been recurrent this concerned her and therefore she presents for evaluation [facility] Medical History (Updated 02/03/23 @ 02:[address] Niko Trivedi DO) Asthma Home Medications citalopram 10 mg tablet 10 mg PO DAILY 07/06/18 [History Last Taken Unknown] lansoprazole 30 mg capsule,delayed release 30 mg PO DAILY #30 caps 07/27/18 [Rx Last Taken Unknown] lamotrigine 25 mg tablet 25 mg PO DAILY 04/25/22 [History Last Taken Unknown] methocarbamol 500 mg tablet 1,000 mg (2 x 500 mg) PO 4X/DAY PRN PRN Muscle pain/spasm #56 tabs 02/03/23 [Rx Last Taken Unknown] Allergy/AdvReac Type Severity Reaction Status Date / Time ibuprofen [From Advil] Allergy Angioedema Verified 02/03/23 00:43 Social History Smoking Status: Never smoker ROS ROS ED Constitutional Constitutional ED: Denies chills or fever(s) ENT ENT ED: Denies sore throat Cardiovascular Cardiovascular: Reports chest pain; Denies palpitations or racing heartbeat Respiratory/Chest Respiratory/Chest: Denies cough or dyspnea Gastrointestinal Gastrointestinal: Denies abdominal pain, diarrhea, nausea or vomiting Genitourinary Genitourinary ED: Denies dysuria Musculoskeletal Musculoskeletal: Denies back pain or myalgias Integumentary Denies rash Neurologic Neurologic: Denies headache(s) Hematologic/Lymphatic Hematologic/Lymphatic: Denies easy bleeding or easy bruising EXAM Physical Exam Const Vital Signs: 02/03/23 00:39 02/03/23 01:38 02/03/23 02:34 Temperature 97.9 F Temperature Source Temporal Pulse Rate 63 61 59 L Respiratory Rate 16 15 16 Blood Pressure 149/92 H 135/81 H 112/74 Blood Pressure Mean 111 99 Pulse Ox 100 98 98 Oxygen Delivery Method Room Air Room Air Positive well nourished and well developed General Appearance ED: well developed HEENT HEENT Narrative: Normocephalic atraumatic Eyes PERRL and EOMs intact bilaterally Neck supple and no JVD Chest Wall palpation of chest normal Chest Narrative: No bony deformity or crepitance noted Resp normal respiratory effort and clear to auscultation bilaterally Cardio regular rate and regular rhythm Rate: other Other Details: Radial pulses are plus 2 out of 4 bilaterally are equal and symmetric Carotid pulses are equal and symmetric as well GI normal to inspection, nondistended, normoactive bowel sounds, non-tender, non-distended and no masses GI Narrative: No voluntary guarding or rigidity no pulsatile mass Auscultation: normoactive bowel sounds Palpation: soft Extremity normal to inspection Extremity Narrative: No asymmetric edema no pitting edema negative Homans' sign bilaterally Neuro oriented x3 and CN's II-XII intact bilaterally Sensorium / Orientation: alert Psych Psych Narrative: Patient has a flat affect Skin no rashes or lesions noted Skin Narrative: No overlying soft tissue changes to suggest trauma or infection MDM MDM MDM Narrative Medical decision making narrative: Patient presented to the ER mildly hypertensive but otherwise with stable vitals. She is low risk for cardiovascular disease and is well as DVT/PE. As differential also includes lung pathology such as pneumonia or pneumothorax I did elect to perform basic laboratory studies with chest x-ray. As the patient is PERC negative I do not feel there is a need for a D-dimer. Lab work showed changes consistent with dehydration as her creatinine is 1.19 with chart review revealing baseline of approximately 0.7 or 0.8. She was given 1 L of fluid and Norflex secondary to this and did have improvement of her chest discomfort. She was kept on the personnel monitor for her entire ER stay and there is no cardiac dysrhythmia noted. Her initial troponin is less than 3 and based on her minimal risk factors and normal EKGs I do not feel there is a need for delta. At this time I feel that the her symptoms are most likely related to muscle tension and spasm from mild dehydration and as she has no signs of acute coronary event or lung pathology and her PERC criteria are negative I do not feel there is need for further work-up and he is otherwise safe for discharge History & Record Review Discussion w/independent historian: Patient and Significant other Lab Data Attestation: I reviewed the patient's lab results. Labs: Laboratory Results - last 24 hr 02/03/23 00:49 WBC 5.5 RBC 4.79 Hgb 14.1 Hct 43.7 MCV 91.2 MCH 29.4 MCHC 32.3 RDW Std Deviation 43.5 RDW Coeff of Faye 12.9 Plt Count 319 MPV 9.7 Immature Gran % (Auto) 0.400 Neut % (Auto) 80.6 H Lymph % (Auto) 17.2 L [place] % (Auto) 1.4 Eos % (Auto) 0.2 Baso % (Auto) 0.2 Absolute Neuts (auto) 4.5 Absolute Lymphs (auto) 0.95 Nucleated RBC % 0 Sodium 135 L Potassium 4.2 Chloride 105 Carbon Dioxide 22.0 Anion Gap 8 BUN 20 H Creatinine 1.19 H Estim Creat Clear Calc 74.00 Est GFR (MDRD) Af Amer 69 Est GFR (MDRD) Non-Af 57 L BUN/Creatinine Ratio 16.8 Glucose 142 H Calcium 9.8 Magnesium 2.4 Troponin I High Sens < 3 L Serum , Qual NEGATIVE Radiography Diagnostic Testing: Clinical Impression(s) from Imaging Studies Chest X-Ray 02/03/23 01:35 IMPRESSION: No acute pulmonary disease. Electronically Signed: Silvio Baptiste MD at 2:57 EDT , 2 view chest x-ray as interpreted by the emergency medicine physician reveals no acute infiltrate pneumothorax or pleural effusion Discharge Plan Triage Chief Complaint: Chest Pain ED Provider: Niko Trivedi Dx/Rx/DC Orders Clinical Impression: Acute nonspecific chest pain with low risk of coronary artery disease, Dehydration, mild Instructions: ED Chest Pain, Uncertain Cause, ED Dehydration (Adult) Prescriptions: New methocarbamol 500 mg tablet 1,000 mg PO 4X/DAY PRN PRN (Reason: Muscle pain/spasm) Qty: 56 0RF No Action citalopram 10 MG tablet 10 mg PO DAILY lansoprazole 30 MG capsule 30 mg PO DAILY Qty: 30 0RF lamotrigine 25 mg tablet 25 mg PO DAILY Patient Comments: PLEASE SEE ATTACHED FOR DETAILED DIRECTIONS Primary Care Provider: Laura Hernandez Referrals: Laura Hernandez MD [Primary Care Provider] - Disposition Disposition: Home, Self Care Discharge Date/Time: 02/03/23 03:01
== END 2023-02-03 03:01 | disposition home or self-care (01) ==
PROVIDERS: Emergency Provider Emergency Medicine; PCP Internal Medicine; Visit Provider Emergency Medicine
DX: R07.9 Chest pain, unspecified (principal); J45.909 Unspecified asthma, uncomplicated; E86.0 Dehydration
CPT/HCPCS: 71046; 80048; 83735; 84484; 84703; 85025; 93005; 96361; 96374; 99282; J7030; A4216

== ENCOUNTER → 2023-02-16 | Outpatient (CLI) | payer OTHER, SELFPAY | END | disposition home or self-care (01) | LOC: LABSPEC 08:27 | PROVIDERS: PCP Internal Medicine; Referring Provider Nurse Practitioner; Visit Provider Nurse Practitioner | DX: R07.9 Chest pain, unspecified (principal); R06.02 Shortness of breath | CPT/HCPCS: 85379 ==

== ENCOUNTER 2024-03-13 15:29 | Emergency (ER) | payer OTHER, SELFPAY ==
[2024-03-13 15:29] VITALS: BP 150/77; PULSE 81; RESP 18; TEMP 36.2; O2SAT 97; BMI 22.1
--- NOTE | 2024-03-13 15:40 | EKG12_ITS ---
Test Reason : MEDICAL CLEARANCE Blood Pressure : / mmHG Vent. Rate : 071 BPM Atrial Rate : 071 BPM P-R Int : 194 ms QRS Dur : 080 ms QT Int : 384 ms P-R-T Axes : 069 069 036 degrees QTc Int : 417 ms Normal sinus rhythm Normal ECG Confirmed by DAWN HOLDER, OLEG ([id number]), editorial project manager ESTEVAN CORNEJO ([id number]) on 03/17/2024 9:29:23 AM Referred By: Confirmed By:LUIS SEYMOUR MD
[2024-03-13 16:15] LABS: Absolute Lymphocyte Count 2.26 X10^3/uL (0.83-4.51); Absolute Neutrophil Count 3.1 X10^3/uL (2.0-7.7); Basophil# 0.04 X10^3/uL; Basophil% 0.6 % (0-1); Eosinophil# 0.27 X10^3/uL; Eosinophils% 4.3 % (0-5); Hematocrit 37.8 % (37-47); Hemoglobin 12.5 g/dL (12.0-15.0); Lymphocyte # 2.26 X10^3/ul (0.83-4.51); Lymphocyte % 36.1 % (19-41); Mean Corp Hgb Conc 33.1 g/dL (32-36); Mean Corpuscular Volume 87.7 fL (81-99); Mean Platelet Vol. 9.1 fl (6.2-12.0); Monocyte# 0.63 X10^3/uL; Monocyte% 10.1 % (0-10); NRBC Flagged by Analyzer 0 % (0-5); Neutrophil # 3.05 X10^3/uL (2.7-7.7); Neutrophil % 48.7 % (47-70); Platelet Count 269 K/mm3 (150-450); RBC Distribution Width CV 13.2 % (11.6-14.6); RBC Distribution Width SD 42.7 fl (35.1-43.9); Red Blood Count 4.31 M/mm3 (4.2-5.4); White Blood Count 6.3 K/mm3 (4.4-11.0)
[2024-03-13 16:20] LABS: Anion Gap 5 (5-15); BUN 12 mg/dL (7-18); BUN/Creat Ratio 12.5 RATIO (10-20); Calcium,Total 9.2 mg/dL (8.5-10.1); Chloride 106 mmol/L (98-107); Creatinine, Serum 0.96 mg/dL (0.55-1.02); EST Glomerular Filtration Rate 72 mL/min (>60); Est Glom Filt Rate - Afr Amer 88 mL/min (>60); Estimated Creatinine Clearance 92.66 ml/min; Glucose 109 mg/dL (74-106); Potassium 3.8 mmol/L (3.5-5.1); Sodium Level 139 mmol/L (136-145)
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
[2024-03-13 16:24] LABS: Internal QC Validated? YES +Cl - CLEAR BKGD; Pregnancy, Serum, hCG Quali. NEGATIVE Negative; Record Kit Lot#, Serum Preg. 772476
[2024-03-13 16:25] VITALS: BP 139/86; PULSE 77; RESP 16; O2SAT 99
--- NOTE | 2024-03-13 16:40 | NURSING ---
FAXED CHART TO CRISIS
[2024-03-13 17:25] LABS: Amphetamine Urine VISTA NEGATIVE (<1000 ng/mL); Barbiturate Urine VISTA NEGATIVE (< 200 ng/mL); Benzodiazepine Urine VISTA NEGATIVE (< 200 ng/mL); Cocaine Urine VISTA NEGATIVE (< 300 ng/mL); Ecstacy Urine VISTA NEGATIVE (< 500 ng/mL); Methadone Urine VISTA NEGATIVE (< 300 ng/mL); PCP Urine VISTA NEGATIVE (< 25 ng/mL); THC Urine VISTA POSITIVE (< 50 ng/mL); Vista UDS pH Range 7
[2024-03-14 00:25] VITALS: BP 110/77; PULSE 75; RESP 16; TEMP 36.8; O2SAT 97
--- NOTE | 2024-03-14 01:14 | ED.RN ---
[facility]
[2024-03-14 07:12] VITALS: BP 126/88; PULSE 74; RESP 16; TEMP 36.7; O2SAT 99
== END 2024-03-14 07:19 ==
PROVIDERS: Emergency Provider Emergency Medicine; PCP Internal Medicine; Visit Provider Emergency Medicine
DX: R45.851 Suicidal ideations (principal); F32.A Depression, unspecified; Z91.51 Personal history of suicidal behavior; Z91.410 Personal history of adult physical and sexual abuse
CPT/HCPCS: 80048; 80307; 82077; 84703; 85025; 93005; 99284

== ENCOUNTER 2024-03-31 08:00 | Outpatient (RCR) | payer OTHER, SELFPAY ==
--- NOTE | 2024-03-31 09:00 | BH.SGPN.GN ---
Behaviors/Verbalizations/Mental Status: [] Eye contact good. Motor activity appropriate. Speech within normal limits. Affect congruent, mood anxious. Thoughts linear, logical, no signs of hallucinations or delusions. Reviewed client?s symptom tracker, SI within pt baseline (08/10), denies ?plan, or intent as of 03/31/2024. Client Response/Progress/Benefit: [] Client receptive of session, attentive and willing to process some with group. Reports this is her first time in group therapy and she struggles with social anxiety. Discussed wanting to work on this as well as get back into the activities she used to engage in that she enjoys. Pt receptive of and appearing to benefit from group support, encouragement, and positive suggestions. Recommended continued IOP tx to improve mood stability, improve coping skill repertoire, as well as prevent decompensation. Narrative Note: []
--- NOTE | 2024-03-31 10:10 | BH.SGPN.GN ---
Behaviors/Verbalizations/Mental Status: []Pt alert and oriented, neatly dressed and groomed. Eye contact good. Motor activity appropriate. Speech within normal limits. Affect congruent, mood anxious and depressed. Thoughts linear, logical, no signs of hallucinations or delusions Client Response/Progress/Benefit: [] Pt was an active participate AEB listening attentively to others, participating in group discussions, and taking notes throughout. Participated as the group identified ways we can hurt others or sabotage self by not regulating our emotions. Participated with peers to identified ways emotions impact communication which pt shared she tends to ?just shut down? when emotions get too high. Participated during group activity. Pt benefited from session by gaining an increased understanding on the importance of managing emotions to improve daily functioning. Will continue IOP tx to prevent decompensation, improve daily functioning, and reduce negative thinking patterns. ??? Narrative Note: []
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
--- NOTE | 2024-04-01 11:22 | BH.COMM_ITS ---
Communication Note Communication with Client Communication Note: Met with patient to complete initial paperwork and risk assessment. Reviewed pre-admission intake. No significant changes. Completed [place] Suicide Screening. Med-High risk. Mediated by recent psych admission. No active SI, plan, or intent. Consulted with Dr. Quiros with plan to admit to [facility] with dx F31.9
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
--- NOTE | 2024-04-02 10:10 | BH.SGPN.GN ---
Behaviors/Verbalizations/Mental Status: []Pt alert and oriented, casually dressed and groomed. Eye contact fair. Motor activity appropriate. Speech within normal limits. Affect congruent, mood anxious. Thoughts linear, logical, no signs of hallucinations or delusions. Client Response/Progress/Benefit: [] Pt was attentive during psychoeducation and participated in group activity. Group discussed what contributes to a person?s perspective and how perspective can positively or negatively impact mental health treatment. Pt reflected on their perspective today and how it is impacting them. Pt shared their perspective today is ?getting closer to being hopeful, but when I first about IOP I was pessimistic.? ?Pt shared she has not received ?adequate? help in the past so this made pt feel like ?what?s the point? but pt was willing to try it again. Pt appeared to benefit from increasing awareness of different perspectives and how they can affect mental health. Pt will continue IOP tx to prevent decompensation, improve daily functioning, and increase repertoire of healthy coping skills. ?? Narrative Note: []
[2024-04-02 10:26] VITALS: BP 115/76; PULSE 69
--- NOTE | 2024-04-02 11:10 | BH.SGPN.GN ---
Behaviors/Verbalizations/Mental Status: []Pt alert and oriented, casually dressed and groomed. Eye contact good. Motor activity appropriate. Speech within normal limits. Affect congruent, mood anxious and depressed. Thoughts linear, logical, no signs of hallucinations or delusions. Client Response/Progress/Benefit: []Pt was attentive and contributed to group discussion. Pt worked with group to identify strategies that can help with challenging negative perspective. Pt completed strengths exploration worksheet, identifying creativity, humor, and empathy as personal strengths. Pt able to acknowledge how these strengths are helping pt and can continue to help pt in mental health journey. Pt identified wanting to work on leaning on strength of love of learning to begin better understanding her mental health. Benefited from identifying personal strengths and strategies for enhancing use of identified strengths. Pt will continue IOP tx to improve mood stability, encourage consistent skill application and prevent decompensation. Narrative Note: []
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
--- NOTE | 2024-04-02 12:22 | BH.DR.ITP ---
Initial Treatment Plan Patient Information Visit Information: ADMISSION DATE: EXPECTED LOS: 4-6 weeks Problems/Symptoms Problem #1:: Mood instability Symptom:: Sadness, erratic moods, worthlessness, hopelessness, decreased energy and motivation, anhedonia, guilt. Symptom:: Biological disruption of sleep, recent suicidal ideation Problem #2:: Anxiety Symptom:: Worry, rumination, restlessness, panic attacks, flashbacks, nightmares, hypervigilance, avoidance
--- NOTE | 2024-04-04 09:00 | BH.SGPN.GN ---
Behaviors/Verbalizations/Mental Status: [] Eye contact is good. Motor activity is appropriate. Appearance is casual. Speech is Appropriate. Mood is depressed. Affect is congruent. Thoughts are linear and logical. No evidence of psychosis. Reviewed daily check in sheet and no reports of suicidal ideations or intent. Client Response/Progress/Benefit: [] Pt participated when prompted. Attentive. Smiling at times during group discussions. Daily symptom tracker notes /5 for anxiety and /5 for depression. Brief check-in. Utilized opposite action to help with mood and accomplish tasks. Pt reports that she forced herself to go to the gym and work-out. Elaborated on the struggles that she has had engaging in exercise since mental health decompensation. She was also proud of herself for assertive communication with her employer regarding FMLA and short-term disability. Progress noted. Benefited from group support, encouragment, and feedback. Will continue in IOP to maintain safety, prevent decompensation/re-admission to psych unit, and to stabilize mood. Narrative Note: []
--- NOTE | 2024-04-04 10:10 | BH.SGPN.GN ---
Behaviors/Verbalizations/Mental Status: []Pt alert and oriented, casually dressed and groomed. Eye contact good. Motor activity appropriate. Speech within normal limits. Affect congruent, mood anxious, dysthymic. Thoughts linear, logical, no signs of hallucinations or delusions. Client Response/Progress/Benefit: [] Pt responded well to session, contributing to discussion when prompted, and engaged during the activity. Group identified the benefits of change which included: increased confidence, improving mental health, and personal growth. Worked with the group to identify barriers to change, which included: uncomfortable emotions such as anxiety and fear, lack of awareness of how to make changes, worried about what others will think, and fear of the unknown. Pt participated along with group in activity where they identified and discussed the emotions related to change. Pt connected with peers that one can have many conflicting emotions when faced with change and shared struggling with feeling angry about changes she did not want/ask for. Benefited from increased awareness and understanding of emotions, benefits, and barriers related to change. Will continue IOP tx to improve healthy coping, improve daily functioning, challenge distorted thoughts, and prevent decompensation. Narrative Note: []
--- NOTE | 2024-04-04 11:10 | BH.SGPN.GN ---
Behaviors/Verbalizations/Mental Status: []Client alert and oriented, casually dressed and groomed. Eye contact good. Motor activity appropriate. Speech within normal limits. Affect congruent, mood anxious. Thoughts linear, logical, no signs of hallucinations or delusions. Client Response/Progress/Benefit: [] Pt responded well to session, attentive throughout. Did well to actively listen and contributed when prompted as group worked to process activity. Pt worked with group to relate the strategies used to overcome barriers in the activity to managing change in own life. Pt identified a change they would like to make is be more confident and less anxious. Pt identified currently being in the contemplation/preparation stage for this change. Pt said finding groups to join, using more self-care, and practicing deep breathing can help pt get to the next stage. Appeared to benefit from identifying a change they want and how to progress. Pt will continue IOP tx to prevent decompensation, improve mood stability, and increase healthy coping skills. Narrative Note: []
== END 2024-04-05 23:59 ==
LOC: BHIOP 08:00
PROVIDERS: PCP Nurse Practitioner; Referring Provider Psychiatry & Neurology Psychiatry; Visit Provider Psychiatry & Neurology Psychiatry
DX: F31.9 Bipolar disorder, unspecified (principal); F43.10 Post-traumatic stress disorder, unspecified; F41.0 Panic disorder [episodic paroxysmal anxiety]; F10.90 Alcohol use, unspecified, uncomplicated
CPT/HCPCS: S9480; 90837; 90853

== ENCOUNTER 2024-04-08 07:11 | Outpatient (RCR) | payer OTHER, SELFPAY ==
[2024-04-06 00:35] VITALS: BP 115/76; PULSE 69
--- NOTE | 2024-04-08 09:00 | BH.SGPN.GN ---
Behaviors/Verbalizations/Mental Status: [] Eye contact is good. Motor activity is appropriate. Appearance is casual. Speech is Appropriate. Mood is depressed. Affect is flat. Thoughts are linear and logical. No evidence of psychosis. Reviewed daily check in sheet and no reports of suicidal ideations or intent. Client Response/Progress/Benefit: [] Pt participated at times during group discussions. Attentive. Pt reports mental health ?wins? which include engaging with friend which led to having lunch with her. Identified how this was beneficial to her mental health. She continues to spend most of her day at home isolating. She also continues to report nightmares and limited sleep which are impacting her functioning. Limited progress noted. Benefited from group support, encouragement, and feedback. Will continue in IOP to maintain safety, prevent decompensation/re-admission to psych unit, and improve functioning. Narrative Note: []
--- NOTE | 2024-04-08 10:15 | BH.SGPN.GN ---
Behaviors/Verbalizations/Mental Status: []Pt alert and oriented, casually dressed and groomed. Eye contact good. Motor activity appropriate. Speech within normal limits. Affect constricted, mood anxious and dysthymic. Thoughts linear, logical, no signs of hallucinations or delusions. Client Response/Progress/Benefit: []Pt an active participant throughout. Participated during interactive discussion on defining conflict (internal/external) and possible benefits to conflict. Attentive during psychoeducation on conflict styles and engaged during group discussion in which peers identified the benefits and consequences to each conflict style. Pt identified they often struggle with avoiding conflict as they fear rejection and begin overthinking and second-guessing themselves. Reports connecting most with avoidant conflict style. Benefited from increased awareness of the impact of conflict styles in mental health. Will continue in IOP tx to reinforce healthy coping skills, improve mood stability, and prevent decompensation. Narrative Note: []
--- NOTE | 2024-04-08 11:15 | BH.SGPN.GN ---
Behaviors/Verbalizations/Mental Status: []Eye contact is good. Motor activity is appropriate. Appearance is casual. Speech is Appropriate. Mood is anxious, and depressed. Affect is constricted. Thoughts are linear and logical. No evidence of psychosis. Client Response/Progress/Benefit: [] Pt was engaged in group discussions and activity. Engaged with peers in activity and identifying healthy ways to approach each conflict scenario. Group discussed various conflict resolution skills that can be useful in addressing conflict outside of IOP. Benefited from practicing and learning conflict resolution skills during group activity. Able to identify areas pt wants to work on to improve how pt manages conflict both internally and externally. Expressed wanting to work on being less accommodating because this is her default which leads to pt feeling worthless. Will continue in IOP to prevent decompensation, improve daily functioning, and increase use of healthy coping skills. Narrative Note: []
--- NOTE | 2024-04-11 09:00 | BH.SGPN.GN ---
Behaviors/Verbalizations/Mental Status: [] Eye contact good. Motor activity appropriate. Speech within normal limits. Affect constricted, mood depressed. Thoughts linear, logical, no signs of hallucinations or delusions. Reviewed client?s symptom tracker, pt denies SI,?plan, or intent as of 04/11/2024. Client Response/Progress/Benefit: [] Client receptive of session, attentive and listening as other group members shared. Pt however declined to process with the group stating she is feeling very stressed today. Did identify coming to group as a win. Receptive of and appearing to benefit from group feedback and support. Recommended continued IOP tx to improve mood stability, promote consistent skill application, well as prevent decompensation. Narrative Note: []
--- NOTE | 2024-04-11 10:10 | BH.SGPN.GN ---
Behaviors/Verbalizations/Mental Status: []Pt alert and oriented, neatly dressed and groomed. Eye contact good. Motor activity appropriate. Speech within normal limits. Affect flat, mood depressed and irritable. Thoughts linear, logical, no signs of hallucinations or delusions Client Response/Progress/Benefit: [] Pt was a passive participant during group session, taking notes but not sharing personal examples or ideas. Peers contributed to interactive discussion on defining what a boundary is in mental health. Peers identified challenges to setting boundaries which included; fear of other's response, wanting to people please, fear of rejection, losing relationships, etc. Peers identified the benefits to setting boundaries such as better mental health, strengthen relationships, increased time for self-care, and making healthier choices. Pt benefited from increased awareness and insight on the importance/benefit to setting health boundaries. Will continue in IOP tx to prevent decompensation, increase daily functioning, and gain healthy coping skills. ? Narrative Note: []
--- NOTE | 2024-04-11 14:45 | BH.MDN ---
Multi-Disciplinary Note Note 45-min Individual: Time Started:: 11:32 Date: 04/11/24 Purpose of session/treatment goals addressed:: To identify and address current stressors maintaining depressive sx and resulting in increased guardedness. Additional purpose was to begin working on interpersonal effectiveness and distress tolerance skills. Eye Contact:: Fair Motor Activity:: Appropriate Appearance:: Casual Speech:: Appropriate and Other (slow to respons, pausing frequently) Mood:: Anxious and Depressed Affect:: Constricted Thoughts:: Linear, Logical, Other (appearing to lose train of thought at times when responding to questions) and No evidence of hallucinations/delusions noted Staff Interventions:: motivational interviewing, CBT techniques, mindfulness skills, strengths perspective, goal setting and taught coping skills (grounding skills of deep breathing and mindfulness via 5-senses) Client Response:: Pt receptive of session, engaged throughout. Reports feeling as though she is benefitting from the program; however, believes that her negative perspective is impeding her progress. Reports ?I?ve just been like this and felt this way for so long, it?s hard to believe things can change. I can change?. Responded well to psychoeducation on the cognitive triangle and depression maintenance cycles, as well as the impact of thoughts and perspective in maintaining depression. Pt reports that her depressive symptoms are often much worse when stress levels are high and she has had more stress over the last week. Shared that she has been struggling with financial stress as her [facility] paperwork was just finalized and she has therefore not received any paychecks since the start of [facility]. Reports that she has always struggled with budgeting and is now experiencing increased stress and guilt since her is covering a majority of their financial obligations. Pt Reports that although her is willing to do this while she is working on her mental health, she continues to fear that he is going to be upset with her. Noted that she has not expressed this to her , despite recognizing the importance of doing so. Explained she often ?bottles things up? and does not share stressors out of worry she will stress someone else out or ruin their mood. Pt reports she shuts down when supports ask what is wrong or minimizes things until she cannot manage the stress anymore, then becomes suicidal, self-harms, or impulsively spends to cope. Reports difficulties with distress tolerance throughout most of her life. Receptive of discussion on the importance of improving interpersonal effectiveness skills to reduce pt's anxiety about reaching out to supports and improve communication. Pt agreeable to start with small daily check-in's with her to reduce fear of having more crucial conversations when stressors arise. Pt additionally receptive of discussion on grounding skills for her anxiety to reduce overall stress levels and improve ability to reach out to supports. Pt stated that she enjoys spending time with her animals and being outside. Did well to identify ways to incorporate her animals in grounding exercises and identified a goal to spend time practicing mindfulness via 5-senses exercise while brushing her horse over the weekend. Risks/Concerns:: Pt denies SI, plan, and intent as of this date. Does however report daily migraines since last Sunday, when her Latuda dosage was decreased. Therapist will reach out to program psychiatrist regarding pt concerns and follow-up. Progress Toward Goals/Plan:: Progress limited. Pt self-reports difficulties internalizing the materials learned in the group sessions. Insight that this is due to a skeptical perspective regarding the effectiveness of mental health treatment in reducing her symptomology. Receptive of thought challenging and beginning behavior activation goals. Pt continues to report low motivation, racing thoughts, negative thoughts, hopelessness, guilt, feeling like a burden, and difficulties communicating with supports. Does report finding the support of the group environment to be helpful and pt does well to engage when prompted. Will continue IOP tx to continue to improve mood stability, improve healthy coping repertoire, and prevent decompensation. Time Stopped:: 12:15
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
--- NOTE | 2024-04-14 10:15 | BH.SGPN.GN ---
Behaviors/Verbalizations/Mental Status: [] Eye contact is good. Motor activity is appropriate. Appearance is casual. Speech is Appropriate. Mood is anxious, dysthymic. Affect is congruent. Thoughts are linear and logical. No evidence of psychosis. Client Response/Progress/Benefit: [] Pt receptive of session, actively engaged throughout AEB taking notes, providing input, and contributing in small group discussion. Appeared to connect with group topic of automatic thoughts and cognitive distortions, as well as the impact of thought patterns on mental health, coping behaviors, and relationships. This particular group is very heavy on psychoeducation and pt appeared to connect with distortions and how they can impact functioning. Identified struggling with disqualifying the positive and all or nothing distortions. Pt appeared to benefit from gaining insight on distorted thinking patterns and how this impacts overall mental health. Will continue IOP to stabilize mood, improve ability to function, and prevent decompensation. Narrative Note: []
--- NOTE | 2024-04-14 11:15 | BH.SGPN.GN ---
Behaviors/Verbalizations/Mental Status: []Pt alert and oriented, casually dressed and groomed. Eye contact fair. Motor activity appropriate. Speech within normal limits. Affect flat, mood depressed and anxious. Thoughts linear, logical, no signs of hallucinations or delusions Client Response/Progress/Benefit: [] Pt was a passive participant during group discussion. Pt was placed in a smaller group and participated in combatting example distortions with peers. Pt was engaged in the smaller group, participated in group interactions to brainstorm answers, and appeared to be comprehending cognitive distortions. Pt stated could connect with many of the distortions covered in group. Pt did not share what she learned from today's group. Benefited from gaining further insight and awareness of cognitive distortions as well as practicing ways to reframe and challenge thoughts. Will continue in IOP tx to increase confidence, decrease anxious avoidance, improve follow through on skills, and prevent decompensation.
--- NOTE | 2024-04-16 09:00 | BH.SGPN.GN ---
Behaviors/Verbalizations/Mental Status: [] Eye contact good. Motor activity appropriate. Speech within normal limits. Affect congruent, mood anxious. Thoughts linear, logical, no signs of hallucinations or delusions. Reviewed client?s symptom tracker, pt denies SI,?plan, or intent as of 04/16/2024. Client Response/Progress/Benefit: [] Client receptive of session, attentive and willing to process with group. Reports improving sx of depression?(1/5) and anxiety (4/5) per daily sx tracker. ?Identified mental health ?win as using opposite action and her as support to follow-through with going to the gym on Sunday. Shared feeling sore but less stressed and accomplished as a result. Additional win noted as spending time outdoors with her animals during the day yesterday, noting that she often struggles with staying inside and in the dark while her is at work. Current stressor identified as ongoing nightmares. Receptive of and appearing to benefit from group support. Recommended continued IOP tx to improve mood stability and distress tolerance, promote consistent skill application, well as prevent decompensation. Narrative Note: []
--- NOTE | 2024-04-16 10:10 | BH.SGPN.GN ---
Behaviors/Verbalizations/Mental Status: [] Eye contact is good. Motor activity is appropriate. Appearance is casual. Speech is Appropriate. Mood is depressed. Affect is congruent. Thoughts are linear and logical. No evidence of psychosis. Client Response/Progress/Benefit: [] Pt participated at times during group discussion. Engaged in group activity and attentive during psychoeducation. Along with peers, pt was able to identify barriers to taking action in their life. Identified several symptoms and stressors that pt feels are holding them back from progress such as poor boundaries, fear, and cognitive distortions. Stated these things have kept pt from being more energized. Benefited from increased self-awareness of obstacles. Will continue IOP tx to prevent decompensation/re-admission to psych unit, maintain safety, stabilize mood, and increase healthy coping. Narrative Note: []
--- NOTE | 2024-04-16 12:16 | PCM.BH.PN_ITS ---
Progress Note Progress Note: History of Present Illness/Interim History: The patient is a 28-year-old -[place] female with a history of depression, anxiety, panic attacks and PTSD. She is seen in follow-up at the [facility] behavioral health [facility]. The patient decreased her Latuda dose after the initial evaluation due to anxiety over her level 1 AV block and the fact that she was having chest discomfort and palpitations. The patient states that she has had daily headaches which started about the same time she decreased the Latuda but she is uncertain if it is due to that. She also started lithium at this time at a low dose and is tolerating it well. The patient's chest discomfort and palpitations have resolved completely. She describes her mood as pretty good but she is still somewhat anxious but much less than before. She feels she is learning valuable skills in the IOP. She has used some alcohol but it was just 1 drink which she did 2-3 times in the last 2 weeks. She has not had any panic attacks in the past week. Her sleep is still about 4 to 5 hours a night and she is not napping and is tired during the day. She denies any thoughts of self-harm. She denies also passive thoughts of , suicidal ideation, homicidal ideation, hallucinations and delusions. Current Psychiatric Medications: [] Latuda 40 mg p.o. daily with food (increased back up 5 days ago due to headaches); lithium carbonate ER 300 mg p.o. nightly (x 2 weeks); Vistaril 40 mg as needed at bedtime. Mental Status Examination: [] The patient is a 28-year-old -[place] female who is slender and casually dressed and groomed with good hygiene. She appears normal for stated age and is ambulatory with a normal gait. She has no psychomotor agitation or retardation. Eye contact is fair to good and speech is normal rate and rhythm and fluent but no pressure. Mood is depressed. Affect is constricted. Thought process is goal-directed and organized. Thought content: The patient is hopeful that she is learning skills to help manage her issues. There is no evidence of passive thoughts of , suicidal ideation, plan for suicide, homicidal ideation, hallucinations or delusions. Reality testing is intact. Intelligence is average. Insight is fair and improving. Judgment is intact. Impulsivity is high. Diagnoses: [] 1. Bipolar disorder, unspecified (F31.9) 2. PTSD 3. Panic disorder 4. Cluster B traits 5. Alcohol use disorder 6. Primary support and work issues 7. First-degree heart block possibly secondary to Latuda Plan: [] The patient will continue the IOP and behavioral health at [facility] as the structure, support, education and group therapy will hopefully prevent worsening of the patient's symptoms which could require rehospitalization. She felt safe during the interview and if it anytime she does not feel safe she agrees to let us know or go to the emergency room. Long discussion was had with the patient as to what next steps to take with her medications. Her anxiety symptoms have completely resolved and discussed with the patient that I am not expecting the level 1 heart block to cause any issues. She agrees to discontinue the lithium to see if this was what caused her daily headaches. Since we have really turned the Latuda to its prior dose and she was improving on it we may not need the lithium at this time. Since the lithium has side effects and requires blood draws it was decided to discontinue it and see what happens with the headaches. If she does well off it we will just continue the Latuda at 40 mg. If we increase the dose of Latuda we will then order an EKG afterwards to observe the level 1 heart block closely. The patient agrees to try to stay sober from all alcohol use. She will continue to follow- up with her outpatient providers and I will see the patient in follow-up in 2 weeks.
--- NOTE | 2024-04-16 15:19 | BH.MDN_ITS ---
Multi-Disciplinary Note Note 45-min Individual: Time Started:: 11:34 Date: 04/16/24 Purpose of session/treatment goals addressed:: Purpose of session was to discuss pt treatment progress as well as address current concerns with sleep impacting mental health sx and daily functioning. Eye Contact:: Good Motor Activity:: Appropriate Appearance:: Disheveled Speech:: Appropriate Mood:: Anxious and Other (content) Affect:: Congruent Thoughts:: Linear, Logical and No evidence of hallucinations/delusions noted Staff Interventions:: psychoeducation on: (sleep hygiene, impacts of alcohol on sleep quality), CBT techniques, goal setting and taught coping skills (progressive muscle relaxation) Client Response:: Pt receptive of session, more actively engaged and willing to openly discuss current sx and stressors than in prior sessions. Pt less slow to respond and appearing more capable of maintaining current train of thought than in prior sessions as well. Shared that overall her mood is improved and stress levels reduced since session last week. Pt attributes this to following through with her goals to begin daily check-in?s with her , as well as begin incorporating daily mindfulness activities for managing her stress and improving pt?s ability to be present. Described going to the barn to spend time with her horse over the weekend, noted applying mindfulness skills when brushing and caring for her horse. Shared that the change in environment and hands-on interaction with her horse aided in reducing racing thoughts and provided healthy distraction, allowing for pt to feel more relaxed and less focused on ongoing stressors afterward. Went on to share that her recently pointed out to pt that she spends much of her day sitting alone in the dark, which may be impacting her mood and thought content. Pt indicated that since then she has been challenging herself to get outside at least once daily. Identified taking the dogs for walks, going to the gym with her , and sitting outside on the porch as ways she has done so. Wend on to note that her primary stressor this week is related to sleep. Pt disclosed that since inpatient hospitalization, she has struggled with nightmares on an almost nightly basis. Reports that in that past two weeks, she has become more anxious at bedtime and begins to fear she will have nightmares. Pt noted increased feelings of derealization and depersonalization the next day. Receptive of discussion reviewing grounding skills for managing sx of depersonalization/derealization. Goal to practice actively engaging with her 5- senses when beginning to recognize these feelings to reconnect pt with her surroundings and herself. Additionally, reviewed with pt current sleep hygiene practices. Pt noted that prior to hospitalization, she had been drinking heavily in the evenings/prior to bedtime and would often not remember her dreams. Connected with psychoeducation on impacts of alcohol use and sleep, connecting reduced alcohol use with increased remembrance of her dreams and likelihood of dreaming to begin with. Pt reports her nightmares have worsened since significantly reducing alcohol consumption. Reports she also typically watches television or clips on her phone when falling asleep. Able to recognize potential impacts of the content of some of the videos she is consuming on her stress levels and anxiety, as pt reports watching crime shows and dramas. Receptive of beginning to incorporate a non-screen related calming skill prior to going to sleep. Pt goal to engage in progressive muscle relaxation prior to trying to sleep each night. Risks/Concerns:: Pt continues to indicate struggling with daily headaches for the last two weeks. This was communicated with program psychiatrist who adjusted medications accordingly. Pt additionally has an appointment with her PCP to follow-up regarding these concerns. Pt denies any SI, plan, or intent as of this date, 04/16/24. Progress Toward Goals/Plan:: Progress noted. Pt reports improved mood and reduced sx of depression and anxiety. She is actively following through with homework provided in individual sessions and appears to be connecting with groups topics. Pt is improving in her ability to open-up and engage in treatment environment, though continues to appear somewhat guarded. Pt is working to re- engage in hobbies, actively implement mindfulness and behavior activation skills, as well as more openly communicate with supports. Pt does report nightmares and feels of derealization/depersonalization impacting sleep and d aily functioning. She is open to starting on a medication for nightmares. Pt recommended continued IOP tx to improve mood stability, effective communication skills, reduce isolation, and prevent decompensation. Time Stopped:: 12:14
--- NOTE | 2024-04-18 09:00 | BH.SGPN.GN ---
Behaviors/Verbalizations/Mental Status: [] Eye contact is good. Motor activity is appropriate. Appearance is casual. Speech is Appropriate. Mood is anxious. Affect is congruent.. Thoughts are linear and logical. No evidence of psychosis. Reviewed daily check in sheet and no reports of suicidal ideations or intent. Client Response/Progress/Benefit: [] Pt participated when prompted. Attentive. Daily symptom tracker notes 12/08 for anxiety. Emotion for today is anxious. Shared with the group that she challenged herself by parking in a different parking space this morning. I don't like change. Briefly elaborated on thoughts and beliefs that exacerbate her parking anxiety as well as how this translates to other areas of her mental health. Small changes in routines significantly impact her mental health often leads to significant distress/isolation/avoidance. Benefited from group support, encouragement, and feedback. Will continue in IOP to maintain safety, prevent decompensation/re-admission to psych unit, and to improve functioning to return to work. Narrative Note: []
--- NOTE | 2024-04-18 10:10 | BH.SGPN.GN ---
Behaviors/Verbalizations/Mental Status: [] Client alert and oriented, casually dressed and groomed. Eye contact good. Motor activity appropriate. Speech within normal limits. Affect congruent, mood euthymic. Thoughts linear, logical, no signs of hallucinations or delusions. Client Response/Progress/Benefit: [] Pt responded well to session AEB sharing and listening attentively to others. Group provided examples of benefits of having social support, including: validation, get assistance, and accountability. Pt also participated in group discussion regarding the barriers to accessing support including examples like: lack of trust, avoidance, and fear of vulnerability. Pt participated in experiential activity illustrating the impact communication, boundaries, and patience play in creating healthy support systems. Pt appeared to benefit from increased knowledge of the benefits of social support and greater self-awareness. Will continue IOP tx to prevent decompensation, increase self image, and improve overall functioning. Narrative Note: []
--- NOTE | 2024-04-18 11:10 | BH.SGPN.GN ---
Behaviors/Verbalizations/Mental Status: [] Client alert and oriented, casually dressed and groomed. Eye contact good. Motor activity appropriate. Speech within normal limits. Affect congruent, mood euthymic. Thoughts linear, logical, no signs of hallucinations or delusions. Client Response/Progress/Benefit: [] pt was an active participant throughout AEB contributing to discussion, providing personal examples, and taking notes. Pt provided input during discussion on the types of support our supports can provide. Pt able to identify current support system and barriers that get in the way of using supports. Pt reported after identifying what type of supports pt receives, pt gained awareness that pt could benefit from more social support. Pt wants to work on reaching out and joining groups. Pt shared this would increase feelings of belongingness. Pt seemed to benefit from identifying the type of support pt needs to work on improving. Pt recommended to continue IOP tx to prevent decompensation, increase healthy thought patterns, and increase emotional regulation skills. Narrative Note: []
--- NOTE | 2024-04-22 09:05 | BH.SGPN.GN ---
Behaviors/Verbalizations/Mental Status: [] Pt alert and oriented, neatly dressed and groomed. Eye contact good. Motor activity appropriate. Speech within normal limits. Affect constricted, mood anxious. Thoughts linear, logical, no signs of hallucinations or delusions. Reviewed pt?s symptom tracker, no risk for suicidal ideation, plan, or intent 04/22/24 Client Response/Progress/Benefit: []t responded well to session, attentive and engaged. Pt shared feeling anxious this morning but pt did not elaborate why, pt shared my anxiety is just high. Pt shared her wins today are that pt set a boundary with one of her good friends instead of people pleasing and she went for a walk with her last night instead of walking alone. Pt stated it is hard for her to set boundaries as pt either sets too rigid of boundaries (cuts people off) or she is a people pleaser per her report. Pt appeared to benefit from reflecting on gains and connecting with peers. Pt will continue IOP tx to reduce negative thinking patterns, improve daily functioning, and increase distress tolerance skills. Narrative Note: []
--- NOTE | 2024-04-22 10:10 | BH.SGPN.GN ---
Behaviors/Verbalizations/Mental Status: [] Eye contact is fair. Motor activity is appropriate. Appearance is casual. Speech is Appropriate. Mood is dysthymic. Affect is constricted. Thoughts are linear and logical. No evidence of psychosis. Client Response/Progress/Benefit: [] Pt receptive to session AEB contributing to group discussion, as well as listening attentively to others, and taking notes. Worked with group to brainstorm the positive and negative aspects of stress on physical and mental health as well as the impact of distress on performance, relationships, and mental health. Pt shared their top stressors to be: finances, work, and mental/emotional/physical health. Shared when feeling overwhelmed with stress pt tends to isolate, be impulsive, and self-harm. Benefited from increased awareness of positive and negative stress as well as how stress impact individuals. Will continue in IOP to increase consistent use of healthy coping skills, challenge distortions, and prevent decompensation. Narrative Note: []
--- NOTE | 2024-04-22 11:15 | BH.SGPN.GN ---
Behaviors/Verbalizations/Mental Status: [] Pt alert and oriented, casually dressed and groomed. Eye contact good. Motor activity appropriate. Speech within normal limits. Affect congruent, mood anxious. Thoughts linear, logical, no signs of hallucinations or delusions. Client Response/Progress/Benefit: [] Pt was an attentive but quite participant in group discussions and actively engaged during experiential activity, doing well to regulate their emotions throughout the activity and work with peers. Attentive during psychoeducation on the 4 A's (Avoid, adapt, alter, accept) of coping with stress. Shared that they would benefit most from accepting her current financial situation and work on beginning to alter unhealthy/unnecessary spending habits. Was able to identify the connection between the experiential activity and utilization of stress management skills. Benefited from increased awareness of stress management strategies. Pt will continue IOP tx to prevent decompensation, reduce anxiety, and improve daily functioning. Narrative Note: []
--- NOTE | 2024-04-23 12:42 | BH.TPR ---
Treatment Plan Review Demographics Date of Admission:: 03/31/24 Date of Treatment Plan Review:: 04/23/24 Admitting Diagnoses:: 1. Bipolar disorder, NOS (F31.9) 2. PTSD 3. Panic disorder 4. Strong cluster B traits 5. Alcohol use disorder Current Diagnoses:: 1. Bipolar disorder, NOS (F31.9) 2. PTSD 3. Panic disorder 4. Strong cluster B traits 5. Alcohol use disorder Patient Status Patient's Response to Treatment:: Pt has responded well to treatment AEB pt consistently attending IOP sessions and reduction of overall DSM-5 symptoms since admission. Pt contributes well during individual sessions and she is becoming more engaged during group sessions. Pt applies coping skills outside of IOP and reports overall mood is improving and that she is using more opposite action and is improving communication with her . Status of Current Problems and Symptoms: Pt continues to report symptoms of anxiety, night terrors, irritability, and isolation. Pt's biggest stressors include return to work, managing PTSD sx, and finances. Progress Problem #1: Problem Name:: depressive symptoms, passive SI, isolation Status of Goals:: Objective 1- in progress. Pt's depression scores have decreased by 60%, she reports benefitting from getting out of the house and having structure. Pt additionally notes beginning to re-engage in activities she enjoys, such as walking and playing with her dogs, reaching out to friends, and spending time with her horse. Pt reports more motivation. Objective 2-incomplete, ongoing work encouraged. Pt is working on identifying her negative core beliefs and creating healthier beliefs. She struggles however with effectively challenging her negative thoughts reinforcing depression on a daily basis. Team Recommendations:: Treatment tx encourages pt to continue working on this tx goal as pt has made progress, but she can continue to improve her self-confidence and challenge distortions. Pt is also working on reaching out to supports. Problem #2: Problem Name:: Anxiety, avoidance, and panic Status of Goals:: Objective 2-in progress. Pt?s DSM-5 scores for anxiety have decreased by 11% since admission and pt repots she is increasing confidence in her ability to challenge thoughts and manage physical symptoms; however, sx of PTSD continue to be a significant concern for pt. Objective 1- in progress. Pt is actively working on reducing avoidance and applying calming skills when recognizing her stress responses. Pt has spent time practicing calming skills; however night terrors continue to significantly impede pt progress in regard to addressing sx of anxiety. Team Recommendations:: Treatment tx encourages pt to continue working on this treatment goal to further reduce avoidance, increase self-confidence and mastery, and gain positive feedback. Pt also encouraged to explore opportunities at [facility] for help with employment.
--- NOTE | 2024-05-01 09:05 | BH.SGPN.GN ---
Behaviors/Verbalizations/Mental Status: [] Eye contact good. Motor activity appropriate. Speech within normal limits. Affect congruent, mood cdepressed. Thoughts linear, logical, no signs of hallucinations or delusions. Reviewed client?s symptom tracker, pt denies SI,?plan, or intent as of 05/01/2024. Client Response/Progress/Benefit: [] Client receptive of session, attentive and willing to process with group. Reports increased sx of depression?(5/5) and anxiety (4/5) per daily sx tracker. ?Identified increased sx are related to pt recently having to put her 15 year old dog down. Shared struggling with grief and resulting in increased sleep and isolation over the past week. Shared that she was able to use opposite action to come to group today which is a win. Additionally spent time with her other dogs rather than sleep yesterday afternoon. Receptive of and appearing to benefit from group support. Recommended continued IOP tx to improve mood stability, promote consistent skill application, well as prevent decompensation. Narrative Note: []
--- NOTE | 2024-05-01 10:10 | BH.SGPN.GN ---
Behaviors/Verbalizations/Mental Status: [] Eye contact is good. Motor activity is appropriate. Appearance is casual. Speech is Appropriate. Mood is depressed. Affect is flat. Thoughts are linear and logical. No evidence of psychosis. Client Response/Progress/Benefit: [] Pt receptive to session AEB listening attentively to others and taking notes. Pt attentive and contributing throughout psychoeducation on the cognitive triangle and maintenance cycles. Pt engaged during group discussion reviewing the impact of daily activities and behaviors in either reinforcing unhealthy maintenance cycles and depression or assisting in reducing symptoms (?down? vs ?up? activities). Pt identified personal ?down? activities they engage in as: not eating or over-eating, shutting down, and sleeping. Attentive during discussion on Common ?Up? activities Pt identified theirs to include: walking her dogs and talking with her . Appeared to benefit from increased awareness of current behaviors and impact these have on mental health. Will continue IOP to reduce isolation, improve daily functioning, and increase distress tolerance skills. Narrative Note: []
--- NOTE | 2024-05-01 11:10 | BH.SGPN.GN ---
Behaviors/Verbalizations/Mental Status: [] Eye contact is good. Motor activity is appropriate. Appearance is casual. Speech is Appropriate. Mood is depressed. Affect is congruent. Thoughts are linear and logical. No evidence of psychosis Client Response/Progress/Benefit: [] Pt responded well to session, attentive and engaged in group activities. Attentive during group discussions. Attentive as group discussed values and the benefits that knowing one's values can have on one's mental health. Pt explored own values and identified personal top values. Pt stated personally important values are social relationships and intimate relationships. ?Pt set a goal to communicate with friends regularly and initiate social gatherings. Benefited from increased awareness of their personal values and how incorporating their values into behavioral activation goals can positive impact mental health. Will continue in IOP to prevent decompensation/re-admission to psych unit, increase healthy coping, and improve functioning to return to work. Narrative Note: []
--- NOTE | 2024-05-02 09:00 | BH.SGPN.GN ---
Behaviors/Verbalizations/Mental Status: [] Eye contact is good. Motor activity is appropriate. Appearance is casual. Speech is Appropriate. Mood is depressed. Affect is flat. Thoughts are linear and logical. No evidence of psychosis. Reviewed daily check in sheet and no reports of suicidal ideations or intent. Client Response/Progress/Benefit: [] Pt participated when prompted. Attentive. Daily symptom tracker notes 4/5 for depression/anxiety, 1/5 for self-harm urges, and 2/5 for irritability. Pt reports grief related to loos of pet earlier this week. She continues to review her daily habits and routines with goals to make changes. Has identify unhealthy habit of sitting in the dark throughout the day. According to pt she feels more comfortable and less stimulated while sitting in the dark however insight that this behavior is negatively impacting her mental health, engagement, and motivation. She also utilized behavioral activation and participated in a positive activity she has been avoiding (horse riding). Briefly discussed the mental health benefit of this activity. Benefited from group support, encouragement, and feedback.Will continue in IOP to maintain safety, prevent decompensation/re-admission, and improve functioning to return to work. Narrative Note: []
--- NOTE | 2024-05-02 10:13 | BH.SGPN.GN ---
Behaviors/Verbalizations/Mental Status: [] Eye contact is good. Motor activity is appropriate. Appearance is casual. Speech is Appropriate. Mood is depressed and anxious. Affect is congruent. Thoughts are linear and logical. No evidence of psychosis. Client Response/Progress/Benefit: [] Pt was an active participant in group discussions. Attentive during psychoeducation on the 4 communication styles (Passive, Passive-Aggressive, Aggressive, and Assertive) and the obstacles to effective communication. ?Self-identified a barrier they personally struggle with as not communicating when overwhelmed or stressed. Contributed during interactive discussion on the benefits of communicating effectively which included; having one's needs met, building connection with others, decreases stress and uncertainty, improved relationships, healthier boundaries, and increased understanding of others. Worked well in small group in which pt and peers identified the benefits and disadvantages to the different communication styles. Benefited from increased understanding of communication styles and how these can impact effective communication. Will continue in IOP to prevent decompensation, improve mood stability and communication with supports, and improve functioning. Narrative Note: []
--- NOTE | 2024-05-02 11:10 | BH.SGPN.GN ---
Behaviors/Verbalizations/Mental Status: []Pt alert and oriented, casually dressed. Eye contact fair. Motor activity appropriate. Speech within normal limits. Affect constricted, mood dysthymic. Thoughts linear, logical, no signs of hallucinations or delusions. Client Response/Progress/Benefit: [] Pt responded well to session AEB Pt listening attentively to others and providing input during group discussion on the pay offs and costs of the different communication styles. Pt able to connect how current communication style impacts mental health. Connected with peers? comments about importance of using assertive communication. Pt did well with practicing being assertive in the group activity and worked with group to identify potential skills for improving communication skills. Pt stated during the assertiveness practice her initial response tends to be passive. Pt seemed to benefit from increasing awareness of healthy strategies to improve communication. Will continue IOP tx to improve emotion regulation, decrease anxiety, and prevent decompensation.
== END 2024-05-05 23:59 ==
LOC: BHIOP 07:11
PROVIDERS: PCP Nurse Practitioner; Referring Provider Psychiatry & Neurology Psychiatry; Visit Provider Psychiatry & Neurology Psychiatry
DX: F31.9 Bipolar disorder, unspecified (principal); F43.10 Post-traumatic stress disorder, unspecified; F41.0 Panic disorder [episodic paroxysmal anxiety]; F10.90 Alcohol use, unspecified, uncomplicated; I44.0 Atrioventricular block, first degree; Z79.899 Other long term (current) drug therapy
CPT/HCPCS: S9480; 90834; 90853

== ENCOUNTER 2024-04-09 13:38 | Emergency (ER) | payer OTHER, SELFPAY ==
[2024-04-09 13:39] VITALS: BP 139/82; PULSE 69; RESP 18; TEMP 36.6; O2SAT 98; BMI 21.5
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
[2024-04-09 14:20] VITALS: BP 130/78; PULSE 69; RESP 16; TEMP 36.6; O2SAT 99
== END 2024-04-09 14:27 | disposition home or self-care (01) ==
LOC: ED 14:26
PROVIDERS: Emergency Provider Emergency Medicine; PCP Nurse Practitioner; Referring Provider Emergency Medicine; Visit Provider Emergency Medicine
DX: S09.90XA Unspecified injury of head, initial encounter (principal); J45.909 Unspecified asthma, uncomplicated; V43.52XA Car driver injured in collision with other type car in traffic accident, initial encounter
CPT/HCPCS: 99282

== ENCOUNTER 2024-05-06 08:01 | Outpatient (RCR) | payer OTHER, SELFPAY ==
[2024-05-06 00:40] VITALS: BP 115/76; PULSE 69
--- NOTE | 2024-05-06 09:00 | BH.SGPN.GN ---
Behaviors/Verbalizations/Mental Status: [] Eye contact is good. Motor activity is appropriate. Appearance is casual. Speech is Appropriate. Mood is depressed. Affect is congruent. Thoughts are linear and logical. No evidence of psychosis. Reviewed daily check in sheet and no reports of suicidal ideations or intent. Client Response/Progress/Benefit: [] Pt participated when prompted. Emotion for today is ?exhausted?. She identifies several stressors including poor memory and concentration. Continues to struggle with following through with goals, self-care, and behavioral activations. Anxiety resulting from change which causes her to remain in comfort zone. Limited progress. Benefited from group support, encouragement, and feedback. Will continue in IOP to prevent decompensation/re-admission to psych unit, increase healthy coping, and improve functioning to return to work. Narrative Note: []
--- NOTE | 2024-05-06 10:15 | BH.SGPN.GN ---
Behaviors/Verbalizations/Mental Status: []Eye contact is good. Motor activity is appropriate. Appearance is casual. Speech is Appropriate. Mood is euthymic and tired. Affect is congruent. Thoughts are linear and logical. No evidence of psychosis. Client Response/Progress/Benefit: [] Pt was engaged and an active participant throughout, providing input and taking notes. Participated throughout interactive discussion on defining anxiety and identifying cognitive and physiological symptoms of anxiety. Group discussed the role of anxiety on isolation, avoidance, and who this emotion impacts their ability to start and complete activities/goals. Pt identified their physical/physiological signs of anxiety (i.e. clenched teeth, pacing, upset stomach, and sweating). Pt identified safety behaviors (i,e alcohol, isolating, and distractions). Benefited from increased awareness and insight on anxiety and its impact. Will continue in IOP to reduce negative thinking patterns, improve daily functioning, and increase social support. Narrative Note: []
--- NOTE | 2024-05-06 11:15 | BH.SGPN.GN ---
Behaviors/Verbalizations/Mental Status: []Pt alert and oriented, casually dressed and groomed. Eye contact good. Motor activity appropriate. Speech within normal limits. Affect flat, mood depressed. Thoughts linear, logical, no signs of hallucinations or delusions. Client Response/Progress/Benefit: [] Pt was an active participant AEB pt providing input and listening attentively to peers. Attentive during psychoeducation on mindfulness coping skills and their impact on reducing anxiety and improving overall mental health wellness. Group was able to identify self-soothing and mind-based coping skills which included: 5-senses, meditation, deep breathing, TIPP, thought challenging, and progressive muscle relaxation. Pt also participated with peers in practicing mindfulness skills in session including deep breathing. Pt would like to work on journaling more to manage anxiety. Appeared to benefit from increasing repertoire of anxiety reduction skills. Pt will continue in IOP tx to prevent decompensation, improve distress tolerance skills, and improve self-confidence. Narrative Note: []
--- NOTE | 2024-05-07 09:00 | BH.SGPN.GN ---
Behaviors/Verbalizations/Mental Status: [] Pt alert and oriented, neatly dressed and groomed. Eye contact fair. Motor activity appropriate. Speech within normal limits. Affect congruent, mood anxious. Thoughts linear, logical, no signs of hallucinations or delusions. Reviewed pt?s symptom tracker, no risk for suicidal ideation, plan, or intent 05/07/24 Client Response/Progress/Benefit: []Pt was an active participant in group discussions. Attentive. Able to identify mental health wins including finally getting a journal after thinking about it for a year and getting her car fixed recently. Pt's stressor today is that feels that the medication she is on has increased her anxiety. Pt stated pt is feeling anxious this morning. Pt receptive to feedback from peers which pt reported was helpful. Progress noted. Benefited from group support, encouragement, and feedback. Will continue in IOP to prevent decompensation, improve daily functioning, and combat distortions. Narrative Note: []
--- NOTE | 2024-05-07 10:10 | BH.SGPN.GN ---
Behaviors/Verbalizations/Mental Status: [] Eye contact is good. Motor activity is appropriate. Appearance is casual. Speech is Appropriate. Mood is anxious and dysthymic. Affect is congruent. Thoughts are linear and logical. No evidence of psychosis Client Response/Progress/Benefit: [] Pt responded well to session AEB contributing to small group discussion, taking notes, and listening attentively to others. Group defined anger and discussed the benefits of managed anger and anger as a secondary emotion. Group shared perspective on benefits of anger as advocating for self and getting needs met, as well as a catalyst for change. Pt completed worksheet on anger triggers and personal warning signs of anger. Pt identified a common trigger as feeling ignored or lied to. Appeared to benefit from increased knowledge of the anger cycle as well as personal triggers. Will continue IOP to increase healthy coping, prevent decompensation, and improve functioning to return to work. Narrative Note: []
--- NOTE | 2024-05-07 12:31 | PCM.BH.PN_ITS ---
Progress Note Progress Note: History of Present Illness/Interim History: The patient is a 28-year-old -[place] female with a history of depression, anxiety, panic attacks and PTSD who is seen in follow-up at the [facility] behavioral health IOP. I last saw the patient 3 weeks ago and at that time we discontinued lithium due to headaches she felt were due to the drug. She is still having headaches and has seen her primary care doctor for this. Her daughter had to be put down a week or so ago and this has made her have a depressed week. The patient's history is at times inconsistent. She states that her panic attacks have decreased to once a week. She is sleeping about 5 or 6 hours a night and she used alcohol 3 times last week and had 2-3 drinks each time but she has not used any alcohol this week. She denies passive thoughts of , thoughts of self-harm, suicidal ideation, plan for suicide, homicidal ideation, hallucinations or delusions. Later in the interview she does say that overall she does feel that she is less depressed. Current Psychiatric Medications: [] Latuda 40 mg p.o. daily with food (increased 3 weeks ago); lithium carbonate ER 300 mg p.o. nightly discontinued 3 weeks ago. Prazosin 1 mg p.o. nightly added for nightmares but the patient has only taken it once or twice in the past several weeks. 3 Mental Status Examination: [] The patient is a 28-year-old -[place] female who is casually dressed and groomed with good hygiene and ambulatory with a normal gait. She is normal for stated age and has no psychomotor agitation or retardation. Eye contact is fair and speech is normal rate and rhythm and fluent with no pressure. Mood is depressed. Affect is constricted. Thought process is goal-directed and organized. Thought content: The patient is a little frustrated about her what she perceives as her lack of improvement. There is no evidence of passive thoughts of , suicidal ideation, homicidal ideation, plan for suicide, hallucinations or delusions. Reality testing is intact. Intelligence is average. Insight is fair. Judgment is intact. Impulsivity is high. Diagnoses: [] 1. Bipolar disorder, NOS (F31.9) 2. PTSD 3. Panic disorder 4. Strong cluster B traits 5. Alcohol use disorder 6. Primary support and work issues 7. First-degree heart block Plan: [] The patient will continue the IOP and behavioral health at [facility] as the structure, support, education and group therapy will hopefully prevent worsening of the patient's symptoms. She felt safe during the interview and if it anytime she does not feel safe she agrees to let us know or go to the emergency room. Patient agrees to increase her Latuda to 60 mg p.o. daily with food to help with her mood instability and depression. She agrees with that we will get an EKG in 2 to 3 weeks to check on her level 1 heart block. The patient agrees to try to stay sober from all alcohol use. She will continue to follow-up with her outpatient providers and I will see the patient in follow-up in 2 weeks.
--- NOTE | 2024-05-07 15:15 | BH.MDN ---
Multi-Disciplinary Note Note 60-min Individual: Time Started:: 11:00 Date: 05/07/24 Purpose of session/treatment goals addressed:: Purpose of session was to address treatment plan goal #2 objs #1 & #2 Eye Contact:: Good Motor Activity:: Appropriate Appearance:: Casual Speech:: Appropriate Mood:: Anxious and Depressed Affect:: Congruent Thoughts:: Linear, Logical and No evidence of hallucinations/delusions noted Staff Interventions:: thought challenging, CBT techniques, strengths perspective and taught coping skills Client Response:: Pt left meeting with program psychiatrist elizabeth and requested to meet with this therapist. Stated that she recently began taking the Prazosin prescribed last week for ongoing sleep issues secondary to PTSD night terrors. Reports that since beginning the medication 2 days ago, she has been feeling more anxious and believes her night terrors and anxiety prior to bedtime have increased. Pt restless while discussing these concerns. Did well to do a grounding technique with therapist in session and appeared to calm. Went on to describe feeling fine for most of the night until she is supposed to take her new medication, when she begins to have more racing thoughts, increased heart rate, and restlessness. Noted difficulties falling asleep as a result and does not usually fall asleep until between 2am-4am. Pt reports discussing these concerns with program psychiatrist who reassured pt that the medication may take at least 2 weeks to take full effect and encouraged her to continue taking it for at least another week and a half to better assess it?s effectiveness. Pt acknowledged the rationale behind this recommendation but reports feeling more anxious and discouraged about doing so. Pt reports having side-effects with most new medications and has had adverse reactions to sleep medications in the past. Did well to recognize that although this new medication is not a specifically a sleep-aid, her brain has already made the association between nighttime meds and adverse reactions. Able to identify that the anxious distorted thoughts related to medications then reenforce her anxiety at night, making it more difficult to fall asleep and pt more vulnerable to night terrors. Receptive of identifying strategies to reduce her brain from making these associations. Pt connected pairing taking her medication with something enjoyable, identifying plans to begin eating a piece of hard candy after taking her meds. Additionally, connected with discussion on implementing grounding and mindfulness skills to increase relaxation and reduce her nighttime anxiety. Connected with guided imagery as a means of shifting focus from her medication anxiety to something more calming and enjoyable. Risks/Concerns:: No SI, plan, or intent Progress Toward Goals/Plan:: Progress remains variable. Pt reports following through with goals and homework from group and individual sessions. She indicates making changes in her environment to improve her mood and motivation, is practicing grounding skills, and reports opening up more to her . However, she continues to report sx of depression, hopelessness, and anxiety. Pt's anxiety seems to be primarily associated with night terrors. She recently prescribed a medication for nightmare; however reports that in the two days since beginning it, her sx are worse. Pt was encouraged by program psychiatrist to continue with the medication for at least two weeks to give it time to take effect. Pt reports anxiety about doing so but willingness to at least try. Recommended continued IOP tx to improve mood stability, monitor medications, and prevent decompensation. Time Stopped:: 12:00
--- NOTE | 2024-05-09 09:00 | BH.SGPN.GN ---
Behaviors/Verbalizations/Mental Status: [] Eye contact is good. Motor activity is appropriate. Appearance is casual. Speech is Appropriate. Mood is depressed.. Affect is congruent. Thoughts are linear and logical. No evidence of psychosis. Reviewed daily check in sheet and no reports of suicidal ideations or intent. Client Response/Progress/Benefit: [] Pt participated when prompted. Attentive. According to pt she continues to struggle with change and trauma triggers. From her perspective she has attempted to make changes to unhealthy coping and activities that impact her mental health however it has been difficulty to maintain. She elaborated on her struggles to make changes and how this has impacted her mental health. Limited progress noted. Benefited from group support, encouragement, and feedback. Will continue in IOP to maintain safety, prevent decompensation/re-admission to psych unit, and improve functioning to return to work. Narrative Note: []
--- NOTE | 2024-05-09 10:10 | BH.SGPN.GN ---
Behaviors/Verbalizations/Mental Status: []Pt alert and oriented, casually dressed and groomed. Eye contact good. Motor activity appropriate. Speech within normal limits. Affect congruent, mood depressed and anxious. Thoughts linear, logical, no signs of hallucinations or delusions. Client Response/Progress/Benefit: [] Pt took notes and contributed to group discussions. Attentive during psychoeducation on growth mindset. Participated during the activity. Interactive group discussion on growth mindset in which group verbalized their current fixed mindsets and how they affect their mental health. Pt shared common fixed mindset thoughts they have which included I'm not a likeable person; Everyone pretends to be my friend; I have no good qualities?. These thoughts lead to feeling and shutting down, not asking supports for help, and isolation. Pt stated they have personally struggled with fixed thoughts causing them to stop trying. Pt benefited from increased awareness of growth mindset and fixed thoughts and how fixed thoughts impact their mental health. Will continue IOP tx to prevent decompensation, improve daily functioning, and promote mood stability. Narrative Note: []
--- NOTE | 2024-05-09 11:15 | BH.SGPN.GN ---
Behaviors/Verbalizations/Mental Status: []Pt alert and oriented, neatly dressed and groomed. Eye contact good. Motor activity appropriate. Speech within normal limits. Affect congruent, mood euthymic. Thoughts linear, logical, no signs of hallucinations or delusions. Client Response/Progress/Benefit: [] Pt was an active participant during activity and discussion. Pt did well to remain attentive and participate as group worked on identifying characteristics and benefits of adopting a growth mindset. Worked with fellow participants in reframing the example fixed thoughts into growth mindset thoughts. Pt worked on changing own fixed thought and reframed the thought to ?I feel stuck, but it might not stay that way.? Pt also wants to work on adding in one positive thing when pt thinks distortedly. appeared to benefit from challenging own thoughts and engaging in the activity. Pt will continue IOP tx to reduce negative thinking patterns, improve distress tolerance skills, and improve daily functioning. ? Narrative Note: []
--- NOTE | 2024-05-12 09:05 | BH.SGPN.GN ---
Behaviors/Verbalizations/Mental Status: [] Eye contact is good. Motor activity is appropriate. Appearance is casual. Speech is Appropriate. Mood is anxious. Affect is congruent. Thoughts are linear and logical. No evidence of psychosis. Reviewed daily check in sheet and no reports of suicidal ideations or intent. Client Response/Progress/Benefit: [] Pt participated when prompted. Attentive. Daily symptom tracker notes 5/5 for anxiety, 4/5 for depression, and 2/5 for self-harm urges. She engaged with friends this weekend stating it was the most fun I've had in awhile. Some insight on the impact of engagement and healthy coping on her mental health. According to pt she stopped her Prazosin as she felt that it did not help with her nightmares. She talked briefly about how she believes that her trauma is impacting her progress in IOP and in mental health in general. Insight that trauma triggers, nightmares, and other trauma related symptoms appear to be impacting her the most. She has never sought out trauma specific treatment however recently has begin to research this option. Progress noted. Benefited from group support, encouragement, and feedback. Will continue in IOP to maintain safety, prevent decompensation/re-admission, and to improve functioning to return to work. Narrative Note: []
--- NOTE | 2024-05-12 10:15 | BH.SGPN.GN ---
Behaviors/Verbalizations/Mental Status: [] Eye contact is good. Motor activity is appropriate. Appearance is casual. Speech is Appropriate. Mood is depressed/irritable. Affect is congruent. Thoughts are linear and logical. No evidence of psychosis. Client Response/Progress/Benefit: [] Attentive during psychoeducation and interactive discussion on coping skills, why people use unhealthy coping skills, how to replace unhealthy coping skills, and internal vs external coping skills. Attentive as peers came up with list of unhealthy and maladaptive coping skills. Attentive as peers discussed the effects of how unhealthy coping skills can impact mental health in a negative way. Benefited from increased understanding of unhealthy coping skills and the need for developing healthy internal and external coping skills. Participated in small group activity which was meant to highlight the importance of having both internal and external coping skills. Will continue in IOP to prevent decompensation/re-admission to psych unit, stabilize mood, and increase healthy coping. Narrative Note: []
--- NOTE | 2024-05-12 20:00 | BH.SGPN.GN ---
Behaviors/Verbalizations/Mental Status: []Pt alert and oriented, casually dressed and groomed. Eye contact good. Motor activity appropriate. Speech within normal limits. Affect constricted, mood depressed. Thoughts linear, logical, no signs of hallucinations or delusions. Client Response/Progress/Benefit: [] Pt responded well to session, taking notes and contributing when prompted. Group discussed the different categories of coping skills which included distraction, emotional release, grounding, self-love, and thought challenging. Pt participated in creating a coping skills ?menu? from the five categories of coping skills. Pt's coping skill menu included: music, exercise, breathing skills, getting out of house, and prioritizing her thoughts. Appeared to benefit from increasing repertoire of healthy coping skills. Will continue IOP to promote mood stability, combat distortions, and increase distress tolerance skills. Narrative Note: []
--- NOTE | 2024-05-13 09:02 | BH.SGPN.GN ---
Behaviors/Verbalizations/Mental Status: [] Client alert and oriented, casual appearance. Eye contact fair. Motor activity appropriate. Speech within normal limits. Affect congruent, mood frustrated. Thoughts linear, logical, no signs of hallucinations or delusions. Reviewed client's symptom tracker, no risk for suicidal ideation, plan, or intent. Client Response/Progress/Benefit: [] Client responded well to session AEB listening to others and sharing thoughts/feelings. 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 Client stated additional mental positive as verbalizing to her family that she did not want to go away for a family gathering out of state because she just did not feel like it would be the best time to travel at this time. Client reported she typically has a difficult time setting boundaries and is proud of herself for verbalizing her needs. Client reported her current stressors trying to find the right medications that do not provide unmanageable side effects. Client did not affect feeling frustrated. Appeared to benefit from support from peers. Will continue IOP tx to continue use of healthy coping skills, challenge distortions, and prevent decompensation. Narrative Note: []
--- NOTE | 2024-05-13 10:10 | BH.SGPN.GN ---
Behaviors/Verbalizations/Mental Status: []Client alert and oriented, casually dressed and groomed. Eye contact good. Motor activity appropriate. Speech within normal limits. Affect constricted, mood dysthymic. Thoughts linear, logical, no signs of hallucinations or delusions. Client Response/Progress/Benefit: [] Pt responded well to session AEB actively participating throughout group. Pt was attentive throughout group activity discussing famous individuals and how they overcame failure to be successful. Pt helped group identify how fear of failure can impact mental health and relationships. Pt personally identified it leads to pt feeling like a failure/burden and shutting down. participated in experiential activity, working with group members to problem solve. Appeared to benefit from increased knowledge of what causes fear of failure and how it impacts people. Will continue IOP tx to prevent decompensation, improve daily functioning, and increase distress tolerance skills. Narrative Note: []
--- NOTE | 2024-05-13 11:10 | BH.SGPN.GN ---
Behaviors/Verbalizations/Mental Status: []Client alert and oriented, casually dressed and groomed. Eye contact fair. Motor activity appropriate. Speech within normal limits. Affect constricted, mood depressed. Thoughts linear, logical, no signs of hallucinations or delusions. Client Response/Progress/Benefit: [] Pt responded well to session, engaged in the experiential activity and attentive throughout group processing. Pt reported fear of failure has kept Pt from happiness, continuing college, and making new friends. Pt completed fear of failure worksheet and was able to identify thoughts and behaviors that reinforce personal fear of failure including people pleasing, lack of communication, and self-judgment. Pt participated in small group discussion regarding strategies to overcome fear of failure. Identified wanting to work on thought challenging. Appeared to benefit from increased knowledge of strategies to combat fear of failure and gaining self-awareness. Pt will continue IOP tx to increase distress tolerance skills, reduce isolation, and improve daily functioning. Narrative Note: []
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
--- NOTE | 2024-05-15 10:15 | BH.SGPN.GN ---
Behaviors/Verbalizations/Mental Status: [] Pt alert and oriented, appropriate grooming/appearance. Eye contact good. Motor activity appropriate. Speech within normal limits. Affect congruent, mood dysthymic. Thoughts linear, logical, no signs of hallucinations or delusions. Client Response/Progress/Benefit: [] Pt was an active participant in group discussions. Attentive during psychoeducation. Contributed during interactive discussions in which peers attempted to define crisis. Group identified examples of potential crisis. Group also worked together to identify unhealthy responses to crisis which included lashing out, isolation, self-harm, and distraction. Pt identified personal warning signs for crisis as isolating, sleeping, and loss of interest. Benefited from increased understanding of crisis and awareness of personal responses to crisis. Pt will continue IOP tx to increase functioning and prevent decompensation. Narrative Note: []
--- NOTE | 2024-05-15 11:15 | BH.SGPN.GN ---
Behaviors/Verbalizations/Mental Status: []Pt alert and oriented, appropriate grooming/appearance. Eye contact fair. Motor activity appropriate. Speech within normal limits. Affect constricted, mood dysthymic and anxious. Thoughts linear, logical, no signs of hallucinations or delusions. Client Response/Progress/Benefit: []Pt was an active participant in group discussions. Attentive during psychoeducation. In small group pt along with peers developed an active plan for their crisis warning signs. Pt identified three crisis warning signs as well as an action plan for each. One crisis warning sign was isolation. Pt identified coping skills to help with this such as:going outside for at least 5 minutes, talking to a support person, and ask support person to hang out. ?Benefited from increased awareness of crisis warning signs and by developing crisis intervention strategies. Will continue in IOP to increase consistent use of healthy coping skills, challenge distorted/negative thoughts, and prevent decompensation.
--- NOTE | 2024-05-20 09:00 | BH.SGPN.GN ---
Behaviors/Verbalizations/Mental Status: [] Pt alert and oriented, neatly dressed and groomed. Eye contact good. Motor activity appropriate. Speech within normal limits. Affect congruent, mood anxious. Thoughts linear, logical, no signs of hallucinations or delusions. Reviewed pt?s symptom tracker, no risk for suicidal ideation, plan, or intent 05/20/24 Client Response/Progress/Benefit: []Pt was an active participant in group discussions. Attentive. Able to identify mental health wins including cleaning her entire house which was a lot but felt really good and being at IOP today when pt wanted to cancel and stay in bed. Pt's stressor today is that she is anxious to return back to work. Pt stated she is feeling mellow this morning. Pt receptive to feedback from peers which pt reported was helpful. Progress noted. Benefited from group support, encouragement, and feedback. Will continue in IOP to promote mood stability, reinforce healthy coping skills, and reduce negative thinking patterns. Narrative Note: []
--- NOTE | 2024-05-20 10:15 | BH.SGPN.GN ---
Behaviors/Verbalizations/Mental Status: []Pt alert and oriented, casually dressed and groomed. Eye contact good. Motor activity appropriate. Speech within normal limits. Affect congruent, mood content. Thoughts linear, logical, no signs of hallucinations or delusions. ? Client Response/Progress/Benefit: []Pt responded well to session, attentive and engaged. Pt participated in activity where pts had to guess the celebrity with a known mental health diagnosis and this led to discussion on self-stigma. Group participated in the discussion defining stigma as well as what stigma has kept pt's from doing in their lives. Pt stated mental health stigma has led pt to isolate and not attend social event. Pt admits that she assumes others will criminal judge he ror think differently if they knew about her mental health struggles. Pt worked with peers to begin discussion of what reinforces stigma and this was discussed further in the next group. Pt appeared to benefit from learning about the different types of stigma as well as gaining awareness of how stigma has personally impacted pt. Pt will continue IOP tx to improve mood stability, increase use of healthy coping skills on a consistent basis, and prevent decompensation. Narrative Note: []
--- NOTE | 2024-05-20 11:15 | BH.SGPN.GN ---
Behaviors/Verbalizations/Mental Status: []Pt alert and oriented, casually dressed and groomed. Eye contact fair. Motor activity appropriate. Speech within normal limits. Affect congruent, mood dysthymic. Thoughts linear, logical, no signs of hallucinations or delusions. Client Response/Progress/Benefit: [] Pt engaged participant AEB participating in the activity, providing input during small group discussion, and listening attentively to others. Pt appeared to connect with discussion in the benefits of addressing mental health stigma which included: improved relationships, increased willingness to seek help, increased happiness, and improved confidence. Group brainstormed strategies to combat social and perceived stigma. Pt shared one thing pt can do to combat self-stigma is to increase positive self-talk. Appeared to benefit from increasing awareness of strategies to combat stigma. Will continue IOP tx to increase follow through of use of skills, challenge distortions, and prevent decompensation.
--- NOTE | 2024-05-22 09:00 | BH.SGPN.GN ---
Behaviors/Verbalizations/Mental Status: []Pt alert and oriented, casually dressed and groomed. Eye contact good. Motor activity appropriate. Speech within normal limits. Affect flat, mood stressed. Thoughts linear, logical, no signs of hallucinations or delusions. Reviewed pt?s symptom tracker, no risk for suicidal ideation, plan, or intent 05/22/24 Client Response/Progress/Benefit: []Pt was an active participant in group discussions. Attentive. Able to identify mental health wins including challenging her perspective, using opposite action yesterday when she wanted to shut down, and convincing my to get an allergy shot so pt can ride horses again. Pt's stressor today is that she found out that her outpatient therapist is leaving due to the practice closing down. Pt stated she is feeling overwhelmed this morning. Pt receptive to feedback from peers which pt reported was helpful. Progress noted. Benefited from group support, encouragement, and feedback. Will continue in IOP to promote mood stability, increase distress tolerance, and improve daily functioning. Narrative Note: []
--- NOTE | 2024-05-22 10:10 | BH.SGPN.GN ---
Behaviors/Verbalizations/Mental Status: [] Eye contact is good. Motor activity is appropriate. Appearance is casual. Speech is Appropriate. Mood is dysthymic. Affect is congruent. Thoughts are linear and logical. No evidence of psychosis. Client Response/Progress/Benefit: [] Pt receptive of session,engaged throughout AEB taking notes, providing some input, and contributing in small group discussion. Appeared to connect with group topic of automatic thoughts and cognitive distortions, as well as the impact of thought patterns on mental health, coping behaviors, and relationships. This particular group is very heavy on psychoeducation and pt appeared to connect with distortions and how they can impact functioning. Identified struggling with Labeling distortion. Pt appeared to benefit from gaining insight on distorted thinking patterns and how this impacts overall mental health. Will continue IOP to increase overall self esteem, improve ability to function, and prevent decompensation. Narrative Note: []
--- NOTE | 2024-05-22 15:20 | BH.MDN ---
Multi-Disciplinary Note Note 45-min Individual: Time Started:: 11:38 Date: 05/22/24 Purpose of session/treatment goals addressed:: Purpose of session was to address treatment plan goal #1 obj #1 & goal #2 obj #2. Eye Contact:: Good Motor Activity:: Appropriate Appearance:: Neat and Casual Speech:: Appropriate Mood:: Anxious and Dysthymic Affect:: Congruent Thoughts:: Linear, Logical and No evidence of hallucinations/delusions noted Staff Interventions:: motivational interviewing, CBT techniques, discharge planning and strengths perspective Client Response:: Pt responded well to session, actively engaged throughout. Reports she is overall in a better headspace this week compared to last, despite receiving unexpected news that her outpatient counselor is leaving the practice. Pt reports that she will have two more sessions with her and is nervous as she just recently started opening up to her after working together for almost 2 years. Pt noted that she struggles to trust counselors and had only returned to therapy in the last 2 years after taking a 10 year break following a negative counseling experience. Described fears she will not find another outpatient provider she feels she can connect with, but recognizes the importance of trying to do so in order to maintain the gains she has made in the last 2 months, as well as begin trauma specific treatment. Reports her outpatient counselor provided her with referral resources, but she would like any additional recommendations which this therapist provided. Went on to work with pt on identifying areas of progress she deserves credit for, as pt struggles with identifying own personal growth. Identified improved communication with supports and willingness to process and discuss her emotions and stressors with her rather than shutting down as she has in the past. Additionally identified improved ability to identify and challenge negative thoughts, reaching out and making new friends/reduced social anxiety, beginning to actively give herself credit, making her environment more mental health friendly, and advocating for her needs. 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 Pt reports her is supportive of this and they plan to further discuss logistics prior to pt returning on a part-time basis. Pt reports feeling ready to d/c from [facility] tx and begin aftercare program following successfully scheduling with an outpatient EMDR therapist. Pt will continue in IOP tx for one more week to complete d/c planning. Risks/Concerns:: Pt denies SI, plan, or intent as of this date 05/22/24 Progress Toward Goals/Plan:: Progress noted. Pt reports improved mood, reduced anxiety, and increased ability to engage in thought challenging over the past week. Indicates following through with practicing cognitive diffusion and self-compassion exercises, as well as increasing her self-care practices. Tying to improve her consistency in getting out of the house, reaching out to friends, as well as improving her ability to practice vulnerability. Continues to struggle with night terrors, ptsd sx, and moments of hopelessness. Recommended continued IOP tx to improve mood stability, complete d/c planning, as well as prevent decompensation.
--- NOTE | 2024-05-26 09:05 | BH.SGPN.GN ---
Behaviors/Verbalizations/Mental Status: [] Eye contact is good. Motor activity is appropriate. Appearance is casual. Speech is Appropriate. Mood is depressed. Affect is constricted. Thoughts are linear and logical. No evidence of psychosis. Reviewed daily check in sheet and no reports of suicidal ideations or intent. Client Response/Progress/Benefit: [] Participated when prompted. Emotion for today is ?cautiously optimistic?. She had a very difficulty conversation with her employer. She was assertive and after discussion felt it best to not return to work till August. She opened up about certain triggers and stressors associated with the job that can trigger her PTSD. Progress noted. Benefited from group support, encouragement, and feedback. Will continue in IOP to prevent decompensation/re-admission, stabilize mood, and increase healthy coping. Narrative Note: []
--- NOTE | 2024-05-26 10:15 | BH.SGPN.GN ---
Behaviors/Verbalizations/Mental Status: []Eye contact is good. Motor activity is appropriate. Appearance is casual. Speech is Appropriate. Mood is depressed. Affect is congruent. Thoughts are linear and logical. No evidence of psychosis. Client Response/Progress/Benefit: [] Pt participated, AEB taking notes and providing input in group discussion when prompted. Attentive during psychoeducation. Pt engaged during interactive discussion in which the group defined self-care and discussed its benefits. Group discussed barriers to engaging in self-care. Group members together came up with not having time, it being selfish, not feeling like they deserve it, and not having energy. Pt stated their personal barrier is feeling like she is not prioritizing others if she practices self-care. Pt participated in small groups where they worked to identified and challenged common self-care ?myths?. Benefited from increased awareness of self-care, its benefits, and the consequences of not utilizing self-care strategies. Will continue IOP tx to reinforce healthy coping skills and combat distortions. ?? Narrative Note: []
--- NOTE | 2024-05-26 11:15 | BH.SGPN.GN ---
Behaviors/Verbalizations/Mental Status: []Eye contact is good. Motor activity is appropriate. Appearance is casual. Speech is Appropriate. Mood is euthymic. Affect is flat. Thoughts are linear and logical. No evidence of psychosis. Client Response/Progress/Benefit: []Pt engaged in discussion reviewing different areas of self-care and completing self-assessment of current self-care, as well as providing input throughout discussion. Did well to complete self-care self-assessment worksheet. Pt identified current self-care practices and what self-care activities Pt wants to start using. Pt selected social self-care to improve and pt will do this by scheduling more hangouts with friends. ?Appeared to benefit from completing the self-care evaluation and gaining insights into current self-care practices, as well as identifying areas in which Pt would like to improve upon. Pt will continue IOP tx to promote mood stability, reinforce healthy coping skills, and improve daily functioning. Narrative Note: []
--- NOTE | 2024-05-27 09:05 | BH.SGPN.GN ---
Behaviors/Verbalizations/Mental Status: [] ?Pt alert and oriented, casually dressed and groomed. Eye contact good. Motor activity appropriate. Speech within normal limits. Affect congruent, mood anxious and dysthymic. Thoughts linear, logical, no signs of hallucinations or delusions. Reviewed pt?s symptom tracker, no risk for suicidal ideation, plan, or intent 05/27/24 Client Response/Progress/Benefit: []Pt receptive of session, engaged throughout and appearing to benefit from group support and encouragement. Identified current mental health wins as going for a walk with ?her dog as well as handling an unexpected stressor better than initially expected. Reports that her outpatient therapist is leaving her current practice, therefore pt will need a new provider. Noted handling the news in a more positive manner than she would have previously, discussed Calming skills used. Benefited from group supportive feedback, encouragement, and support. Recommended continued IOP tx to prevent decompensation, improve mood stability, and promote skill application. Narrative Note: []
--- NOTE | 2024-05-27 11:15 | BH.SGPN.GN ---
Behaviors/Verbalizations/Mental Status: []Pt alert and oriented, casually dressed and groomed. Eye contact fair. Motor activity appropriate. Speech within normal limits. Affect congruent, mood dysthymic and anxious. Thoughts linear, logical, no signs of hallucinations or delusions. Client Response/Progress/Benefit: []Pt engaged participant AEB listening attentively to others and providing input throughout group. Pt worked within their small group to identify strategies to manage inappropriate guilt. Identified a personal example of inappropriate guilt as ?feeling bad for not being ready to return back to work?. Provided insight that this cues a feeling of fear of disappointing others. Pt wants to work on combatting inappropriate guilt by correcting the distortions and practicing sitting with the uncomfortable. Pt seemed to benefit from learning about strategies to manage appropriate and inappropriate guilt. Pt to continue IOP level of care to increase consistent use of healthy coping skills, improve view of self, and prevent decompensation.
--- NOTE | 2024-05-27 15:19 | BH.MDN ---
Multi-Disciplinary Note Note 30-min Individual: Time Started:: 10:38 Date: 05/27/24 Purpose of session/treatment goals addressed:: To address current stressors and discuss strategies to help cope with these stressors. Another goal was to discuss discharge and aftercare. Eye Contact:: Good Motor Activity:: Appropriate Appearance:: Casual Speech:: Appropriate Mood:: Euthymic and Anxious Thoughts:: Linear, Logical and No evidence of hallucinations/delusions noted Staff Interventions:: thought challenging, motivational interviewing, discharge planning, strengths perspective and reviewed DSM-5 Client Response:: Pt responded well to session, open to meeting with therapist. Pt reports feeling much different from when pt started IOP. Pt reflected on progress sharing when they first started pt was hopeless and had recently felt suicidal. Pt was also drinking to numb, isolating, and not engaging in hobbies or interests. Now pt is sober, pt has been opening up more to her and reaching out to new supports, they no longer isolate, and they use healthy coping skills daily. Pt feels their perspective has changed the most since starting IOP and pt is able to challenge their distorted thinking, specifically personalization much quicker now. Pt also has made steps towards pursuing some of her interests, such as modeling, that she had never felt confident enough to pursue before. Pt has been consistent with applying coping skills, setting goals and following through using opposite action, sitting with discomfort, and communicating their needs. Pt has also changed their routine to prevent oversleeping as often, which has helped pt get back into hobbies and practice more self-care. Pt did well during IOP and pt acknowledged that they put forth much effort as possible while in the program which pt feels paid off. Risks/Concerns:: Pt denies any suicidal ideations, plan, or intent. Pt denies any thoughts of . Progress Toward Goals/Plan:: Pt will discharge from IOP tx today as pt has accomplished their goals AEB pt?s overall symptom reduction is 76% since admission with anger decreasing by 100%, depression decreasing by 60%, SI decreasing by 100%, and anxiety decreasing by 78%. Pt does not have a session scheduled with an outpatient therapist yet as pt's current provider is leaving the practice and working with pt to establish with Bailey Dyson. She is established with [facility] and meets for her first appointment on 06/02/24. Pt will start IOP aftercare next week on 06/05/24. Time Stopped:: 11:06
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
== END 2024-05-27 12:49 | disposition home or self-care (01) ==
LOC: BHIOP 08:01
PROVIDERS: PCP Nurse Practitioner; Referring Provider Psychiatry & Neurology Psychiatry; Visit Provider Psychiatry & Neurology Psychiatry
DX: F31.9 Bipolar disorder, unspecified (principal); F43.10 Post-traumatic stress disorder, unspecified; F10.90 Alcohol use, unspecified, uncomplicated; Z79.899 Other long term (current) drug therapy
CPT/HCPCS: S9480; 90832; 90834; 90837; 90853

== ENCOUNTER 2024-06-05 13:55 | Outpatient (RCR) | payer OTHER, SELFPAY ==
--- NOTE | 2024-06-05 14:00 | BH.COMM ---
Communication Note Communication with Client Communication Note: Patient completed IOP and presents today to start relapse prevention group which meets once weekly (1.5 hours) for 8 weeks. Case discussed with Dr. Quiros with plan to admit with dx of F31.9
--- NOTE | 2024-06-05 14:00 | BH.SGPN.GN ---
Behaviors/Verbalizations/Mental Status: []Pt alert and oriented, casually dressed and groomed. Eye contact good. Motor activity appropriate. Speech within normal limits. Affect constricted, mood anxious and euthymic. Thoughts linear, logical, no signs of hallucinations or delusions. Client Response/Progress/Benefit: []Pt receptive of session, engaged throughout. Pt has been somewhat consistent with medications per her report and recently got a new medication. Pt admits that she is nervous to try this new medication as pt is sensitive to meds per her report. Pt saw saw her therapist and psychiatrist recently. Pt reported using coping skills such as: self-care, opposite action, and journaling. Receptive of discussion on ?Chapters of my life? poem. Pt contributed to the discussion of the different chapters one may go through and how they connect with current mental health progress. Pt reflected and identified their current chapter as 2-3 because I'm more confident and sometimes I get out of the hole fast, but sometimes I knowingly go into them. Identified that taking more time to engage in self-care and reach out to supports would help with getting to the next chapter. Pt seemed to benefit from support from peers and increasing understanding of ?Chapters of my life?. Will continue IOP aftercare to maintain gains and prevent decompensation. Narrative Note: []
--- NOTE | 2024-06-05 15:29 | BH.MTP ---
Master Treatment Plan Patient Information Program Physician:: Dr. Yamini Roberts Primary Therapist:: Nirmala PAUL Psychiatric Diagnoses Psychiatric Diagnoses:: Bipolar disorder, unspecified (F31.9); PTSD; Panic disorder; Cluster B traits; Alcohol use disorder Diagnosis Code(s):: F 31.9 Estimated LOS Estimated LOS (in weeks):: 8 Problem/Goal #1 Problem/Goal #1 Stated Goal:: client will maintain or see a reduction in symptoms AEB client score on the DSM 5 cross-cutting measure and improve client's daily functioning. Objectives Objective #1: Stated Objective: Client will continue to consistently apply healthy coping skills to maintain progress made in IOP tx. Interventions: Through group therapy, client will review warning signs and triggers as well as healthy coping skills learned in IOP tx to successfully maintain gains while transitioning into outpatient therapy. Discharge Criteria: Client will have accomplished this goal when client's score on the DSM-5 cross-cutting measure has maintained or reduced over a 8 week period. Target Date: 07/31/24 Review Date: 07/03/24 Status: open Objective #2: Stated Objective: Client will learn and utilize 2-3 maintenance strategies to prevent decompensation from original IOP DSM-5 scores. Interventions: Through group therapy, client will be provided with education on healthy maintenance behaviors, relapse prevention techniques, and healthy coping strategies. Discharge Criteria: Client will have accomplished this goal when can report using at least 2 maintenance skills to prevent decompensation compared to original IOP DSM-5 scores Target Date: 07/31/24 Review Date: 07/03/24 Status: open
== END 2024-06-05 23:59 ==
LOC: BHOG 13:55
PROVIDERS: PCP Nurse Practitioner; Referring Provider Psychiatry & Neurology Psychiatry; Visit Provider Psychiatry & Neurology Psychiatry
DX: F31.9 Bipolar disorder, unspecified (principal); F43.10 Post-traumatic stress disorder, unspecified; F41.0 Panic disorder [episodic paroxysmal anxiety]; F10.90 Alcohol use, unspecified, uncomplicated
CPT/HCPCS: 90853

== ENCOUNTER 2024-06-06 07:32 | Outpatient (RCR) | payer OTHER, SELFPAY | END 2024-06-26 14:10 | disposition home or self-care (01) | LOC: BHOG 07:32 | PROVIDERS: PCP Nurse Practitioner; Referring Provider Psychiatry & Neurology Psychiatry; Visit Provider Psychiatry & Neurology Psychiatry | DX: Z00.00 Encounter for general adult medical examination without abnormal findings (principal) ==